=== PATIENT | male | born 1940 | race Two or more races ===

== ENCOUNTER 2016-05-22 05:22 | Emergency (ER) | payer MEDICARE, OTHER ==
--- NOTE | 2016-05-22 05:49 | ER Document Report ---
ED Fall - General Chief Complaint: Fall Stated Complaint: FALL, NECK PAIN Time seen by provider: 05:48 Mode of Arrival: Medic Information source: Patient TRAVEL OUTSIDE OF THE [place] IN LAST 30 DAYS: No - Related data Allergies/Adverse Reactions: No Known Allergies Allergy (Verified 03/14/15 14:23) Past Medical History - Social History Family History: CAD, Hyperlipidemia, Hypertension - Past Medical History Cardiac Medical History: Reports: Hx Hypercholesterolemia, Hx Hypertension Denies: Hx Atrial Fibrillation, Hx Congestive Heart Failure, Hx Coronary Artery Disease, Hx Heart Attack, Hx Peripheral Vascular Disease, Hx Heart Murmur Pulmonary Medical History: Denies: Hx Asthma Neurological Medical History: Reports: Hx Seizures. Denies: Hx Cerebrovascular Accident Malignancy Medical History: Reports Hx Prostate Cancer GI Medical History: Reports: Hx Gastroesophageal Reflux Disease. Denies: Hx Hepatitis, Hx Hiatal Hernia, Hx Ulcer Musculoskeltal Medical History: Reports Hx Arthritis Psychiatric Medical History: Reports: Hx Depression - 2/2 recent of his 1 year ago Infectious Medical History: Denies: Hx Hepatitis Past Surgical History: Reports: Hx Orthopedic Surgery - Knee Replacement, Other - Prostatectomy. Denies: Hx Open Heart Surgery, Hx Pacemaker - Immunizations Immunizations up to date: Yes Hx Diphtheria, Pertussis, Tetanus Vaccination: Yes Hx Pneumococcal Vaccination: 12/18/13 Physical Exam - Vital signs Vitals: Pulse Resp BP Pulse Ox 94 20 171/87 H 96 05/22/16 05:29 05/22/16 05:29 05/22/16 05:29 05/22/16 05:29 Course - Vital Signs Vital signs: Temp Pulse Resp BP Pulse Ox 97.6 F 94 20 171/87 H 96 05/22/16 05:30 05/22/16 05:29 05/22/16 05:29 05/22/16 05:29 05/22/16 05:29
[2016-05-22] MEDS ORDERED: MORPHINE SULFATE 10 MG/ML INJ IV ONE ×2 (06:28→08:12)
--- NOTE | 2016-05-22 06:36 | ER Document Report ---
ED Fall - General Chief Complaint: Fall Stated Complaint: FALL, NECK PAIN Mode of Arrival: Medic Information source: Patient Notes: This is a 75-year-old male who presents via EMS after a fall this morning. He states that he had a headache and awoke at about 3 AM and has used getting out of bed he slipped and fell and hit his head on the floor. He denies any loss of consciousness. He was able to call EMS. He denies any recent fevers chills or systemic symptoms. He has had no nausea or vomiting. He denies vision complaints. He has had no paresthesias or weakness. He also denies chest pain or palpitations. Currently he complains of a diffuse headache. TRAVEL OUTSIDE OF THE [place] IN LAST 30 DAYS: No - Related data Allergies/Adverse Reactions: No Known Allergies Allergy (Verified 05/22/16 05:54) Past Medical History - General Information source: Patient - Social History Smoking Status: Unknown if Ever Smoked Family History: CAD, Hyperlipidemia, Hypertension - Past Medical History Cardiac Medical History: Reports: Hx Hypercholesterolemia, Hx Hypertension Denies: Hx Atrial Fibrillation, Hx Congestive Heart Failure, Hx Coronary Artery Disease, Hx Heart Attack, Hx Peripheral Vascular Disease, Hx Heart Murmur Pulmonary Medical History: Denies: Hx Asthma Neurological Medical History: Reports: Hx Seizures. Denies: Hx Cerebrovascular Accident Malignancy Medical History: Reports Hx Prostate Cancer GI Medical History: Reports: Hx Gastroesophageal Reflux Disease. Denies: Hx Hepatitis, Hx Hiatal Hernia, Hx Ulcer Musculoskeltal Medical History: Reports Hx Arthritis Psychiatric Medical History: Reports: Hx Depression - 2/2 recent of his 1 year ago Infectious Medical History: Denies: Hx Hepatitis Past Surgical History: Reports: Hx Orthopedic Surgery - Knee Replacement, Other - Prostatectomy. Denies: Hx Open Heart Surgery, Hx Pacemaker - Immunizations Immunizations up to date: Yes Hx Diphtheria, Pertussis, Tetanus Vaccination: Yes Hx Pneumococcal Vaccination: 12/18/13 Review of Systems - Review of Systems Constitutional: No symptoms reported. denies: Chills, Fever EENT: No symptoms reported Cardiovascular: No symptoms reported. denies: Chest pain, Syncope, Dizziness Respiratory: No symptoms reported Gastrointestinal: No symptoms reported. denies: Vomiting Musculoskeletal: See HPI. denies: Back pain, Muscle pain Neurological/Psychological: See HPI. denies: Weakness, Gait changes, Numbness, Tingling Physical Exam - Vital signs Vitals: Pulse Resp BP Pulse Ox 94 20 171/87 H 96 05/22/16 05:29 05/22/16 05:29 05/22/16 05:29 05/22/16 05:29 - Notes Notes: PHYSICAL EXAMINATION: GENERAL: Thin frail elderly male in no acute distress. Pleasant and conversant. C-collar is in place HEAD: Atraumatic, normocephalic. EYES: Pupils equal round and reactive to light, extraocular movements intact, sclera anicteric, conjunctiva are normal. ENT: nares patent, oropharynx clear without exudates. Moist mucous membranes. NECK: No midline C-spine tenderness to palpation. No step-offs. Tenderness to palpation to left paracervical muscles. LUNGS: Breath sounds clear to auscultation bilaterally and equal. No wheezes rales or rhonchi. HEART: Regular rate and rhythm without murmurs ABDOMEN: Soft, nontender, normoactive bowel sounds. No guarding, no rebound. No masses appreciated. EXTREMITIES: Normal range of motion, no edema NEUROLOGICAL: Cranial nerves grossly intact. Normal speech, normal gait. Motor strength +5/5 bilateral upper and lower extremities. Sensation intact. Negative finger to nose. PSYCH: Normal mood, normal affect. SKIN: Warm, Dry, normal turgor, no rashes or lesions noted. Course - Re-evaluation Re-evalutation: 05/22/16 12:06 Patient has remained stable throughout his ER stay. Currently he states that his head feels better but his left side of the neck still hurts when he turns his head to the left. I suspect that he has a cervical strain. CTs are reviewed and negative. His history and exam is not consistent with subarachnoid hemorrhage and I do not feel that LP is clinically indicated at this time. Patient is stable for discharge home with symptomatic care and follow-up with his primary care physician this week. We discussed strict return precautions to include increasing headache, fever, vomiting, chest pain, or any worsening symptoms or concerns. He is very comfortable with this plan and questions are answered. 05/22/16 15:30 - Vital Signs Vital signs: Temp Pulse Resp BP Pulse Ox 97.6 F 92 18 159/89 H 91 L 05/22/16 05:30 05/22/16 07:50 05/22/16 11:30 05/22/16 11:30 05/22/16 11:30 - Laboratory Result Diagrams: 05/22/16 06:50 05/22/16 06:50 Laboratory results interpreted by me: 05/22/16 05/22/16 06:50 06:50 RBC 4.06 L Hgb 12.2 L Hct 35.8 L RDW 20.0 H Lymphocytes % 12.5 L Basophils % 2.7 H Sodium 147.1 H Creatinine 1.42 H Est GFR ( Amer) 59 L Est GFR (Non-Af Amer) 49 L Glucose 117 H Calcium 10.3 H Total Protein 8.7 H - Diagnostic Test Radiology reviewed: Reports reviewed - CT head and C-spine negative. Discharge - Discharge Clinical Impression: Fall Qualifiers: Encounter type: initial encounter Qualified Code(s): W19.XXXA - Unspecified fall, initial encounter Headache Qualifiers: Headache type: unspecified Headache chronicity pattern: acute headache Intractability: not intractable Qualified Code(s): R51 - Headache Cervical strain, acute Qualifiers: Encounter type: initial encounter Qualified Code(s): S16.1XXA - Strain of muscle, fascia and tendon at neck level, initial encounter Condition: Stable Disposition: HOME, SELF-CARE Additional Instructions: Your exam, CTs, and blood work today showed no signs of serious medical problem or injury. You should rest at home and drink plenty of fluids. You can take Tylenol or ibuprofen as needed for pain. As discussed use a heating pad or moist heat on your neck as needed for muscle stiffness or soreness. You should follow up with your primary physician this week for further evaluation. Please return to the emergency department for any worsening symptoms especially for fever, severe headache, vomiting, chest pain, or any worsening symptoms or concerns. Referrals: CARMEN LOPEZ MD [Primary Care Provider] - Follow up as needed
[2016-05-22] MEDS ORDERED: ONDANSETRON HCL INJ/PF 4 MG/2 ML SDV IV ONE (07:05)
[2016-05-22 07:08] LABS: ABSOLUTE BASOPHILS # (AUTO) 0.2 10^3/uL (0.0-0.2); ABSOLUTE EOSINOPHILS # (AUTO) 0.2 10^3/uL (0.0-0.6); ABSOLUTE LYMPHOCYTES (AUTO) 1.1 10^3/uL (0.5-4.7); ABSOLUTE MONOCYTES (AUTO) 0.8 10^3/uL (0.1-1.4); ABSOLUTE NEUT (AUTO) 6.3 10^3/uL (1.7-8.2); BASOPHILS % (AUTO) 2.7 % (0-2); EOSINOPHILS % (AUTO) 1.8 % (0-6); HEMATOCRIT 35.8 % (37.9-51.0); HEMOGLOBIN 12.2 g/dL (13.5-17.0); HGB HCT DIFFERENCE 0.8; LYMPHOCYTES % (AUTO) 12.5 % (13-45); MEAN CORPUSCULAR HEMOGLOBIN 30.1 pg (27.0-33.4); MEAN CORPUSCULAR HGB CONC 34.2 g/dL (32.0-36.0); MEAN CORPUSCULAR VOLUME 88 fl (80-97); MONOCYTES % (AUTO) 9.2 % (3-13); RED BLOOD COUNT 4.06 10^6/uL (4.35-5.55); SEGMENTED NEUTROPHILS % (AUTO) 73.8 % (42-78); WHITE BLOOD COUNT 8.6 10^3/uL (4.0-10.5)
[2016-05-22] MEDS ORDERED: ONDANSETRON HCL INJ/PF 4 MG/2 ML SDV ONE (07:08)
[2016-05-22 07:12] LABS: PROTHROMBIN TIME 12.7 SEC (11.4-15.4)
[2016-05-22 07:13] LABS: PARTIAL THROMBOPLASTIN TIME 34.3 SEC (23.5-35.8)
[2016-05-22 07:28] LABS: ANISOCYTOSIS 2+; HYPOCHROMASIA SLIGHT; OVALOCYTES SLIGHT; POIKILOCYTOSIS 1+; TARGET CELLS SLIGHT
[2016-05-22 07:32] LABS: ALANINE AMINOTRANSFERASE 25 U/L (21-72); ALBUMIN 4.6 g/dL (3.5-5.0); ALKALINE PHOSPHATASE 73 U/L (38-126); ANION GAP 16 (5-19); ASPARTATE AMINO TRANSFERASE 26 U/L (17-59); BLOOD UREA NITROGEN 15 mg/dL (7-20); CALCIUM 10.3 mg/dL (8.4-10.2); CARBON DIOXIDE 26 mmol/L (22-30); CHLORIDE 105 mmol/L (98-107); CREATINE KINASE 132 U/L (55-170); CREATININE RESULT 1.42 mg/dL (0.52-1.25); GLUCOSE 117 mg/dL (75-110); POTASSIUM 3.6 mmol/L (3.6-5.0); SODIUM 147.1 mmol/L (137-145); TOTAL PROTEIN 8.7 g/dL (6.3-8.2)
[2016-05-22 07:44] LABS: CREATINE KINASE MB 0.32 ng/mL (<4.55)
[2016-05-22 07:45] LABS: TROPONIN I < 0.012 ng/mL
[2016-05-22 11:33] VITALS: BP 159/89
--- NOTE | 2016-05-22 12:11 | EKG REPORT ---
SEVERITY:- NORMAL ECG - SINUS RHYTHM : Confirmed by: Otilia Armenta MD 22-May-2016 12:10:46
== END 2016-05-22 12:24 | disposition home or self-care (01) ==
LOC: ER 05:22
DX: S16.1XXA Strain of muscle, fascia and tendon at neck level, initial encounter (principal); W01.0XXA Fall on same level from slipping, tripping and stumbling without subsequent striking against object, initial encounter; Y93.89 Activity, other specified; M54.2 Cervicalgia; R51 Headache; I10 Essential (primary) hypertension; Z85.46 Personal history of malignant neoplasm of prostate
CPT/HCPCS: 93005; 96376; 99284; 96374; 96375; 36415; 82553; 82550; 85025; 85610; 85730; 80053; 84484; 70450; 70496; 70498; 72125; 93010; L0120; L0172; J2270; J2405

== ENCOUNTER 2016-06-05 18:56 | Inpatient (IN) | payer MEDICARE, OTHER ==
[2016-06-05] MEDS ORDERED: CEFTRIAXONE 1 GM/D5W RTU 50 ML IV ONE (19:27)
[2016-06-05] MEDS ORDERED: NORMAL SALINE 1000 ML 1,000 ML IV ONE (19:27)
[2016-06-05] MEDS ORDERED: LEVOFLOXACIN 750 MG/D5W RTU 150 ML IV ONE (19:27)
[2016-06-05] MEDS ORDERED: ACETAMINOPHEN 325 MG TABLET PO ONE (19:28)
--- NOTE | 2016-06-05 19:30 | ER Document Report ---
ED General - General Chief Complaint: Fever Stated Complaint: cough, sob, fever Notes: Patient is a 75-year-old male with past medical history of hypertension and hyperlipidemia who presents with a fever, cough, and shortness of breath. Patient states that he had been feeling unwell for the past 48 hours. He also notes that when he coughs he has a diffuse dull, stabbing pain in his chest. Became much worse today. Nothing seems to improve or worsen his symptoms. States that these symptoms feel similar to when he has had pneumonia in the past. He has not seen his primary care doctor regarding today's concerns. He had a fever recorded at 101F by EMS. Patient is not normally on oxygen and has no history of obstructive lung disease. TRAVEL OUTSIDE OF THE [place] IN LAST 30 DAYS: No - Related Data Allergies/Adverse Reactions: No Known Allergies Allergy (Verified 05/22/16 05:54) Past Medical History - General Information source: Patient - Social History Smoking Status: Never Smoker Frequency of alcohol use: None Drug Abuse: None Family History: CAD, Hyperlipidemia, Hypertension - Past Medical History Cardiac Medical History: Reports: Hx Hypercholesterolemia, Hx Hypertension Denies: Hx Atrial Fibrillation, Hx Congestive Heart Failure, Hx Coronary Artery Disease, Hx Heart Attack, Hx Peripheral Vascular Disease, Hx Heart Murmur Pulmonary Medical History: Denies: Hx Asthma Neurological Medical History: Reports: Hx Seizures. Denies: Hx Cerebrovascular Accident Malignancy Medical History: Reports Hx Prostate Cancer GI Medical History: Reports: Hx Gastroesophageal Reflux Disease. Denies: Hx Hepatitis, Hx Hiatal Hernia, Hx Ulcer Musculoskeltal Medical History: Reports Hx Arthritis Psychiatric Medical History: Reports: Hx Depression - 2/2 recent of his 1 year ago Infectious Medical History: Denies: Hx Hepatitis Past Surgical History: Reports: Hx Orthopedic Surgery - Knee Replacement, Other - Prostatectomy. Denies: Hx Open Heart Surgery, Hx Pacemaker - Immunizations Immunizations up to date: Yes Hx Diphtheria, Pertussis, Tetanus Vaccination: Yes Hx Pneumococcal Vaccination: 12/18/13 Review of Systems - Review of Systems Notes: Constitutional: Positive for fever. HENT: Negative for sore throat. Eyes: Negative for visual changes. Cardiovascular: Negative for chest pain. Respiratory: Positive for shortness of breath. Gastrointestinal: Negative for abdominal pain, vomiting or diarrhea. Genitourinary: Negative for dysuria. Musculoskeletal: Negative for back pain. Skin: Negative for rash. Neurological: Negative for headaches, weakness or numbness. 10 point ROS negative except as marked above and in HPI. Physical Exam - Vital signs Vitals: Resp 22 H 06/05/16 19:08 Interpretation: Tachycardic, Hypoxic, Tachypneic Notes: PHYSICAL EXAMINATION: GENERAL: Ill and uncomfortable in appearance. HEAD: Atraumatic, normocephalic. EYES: Pupils equal round and reactive to light, extraocular movements intact, sclera anicteric, conjunctiva are normal. ENT: nares patent, oropharynx clear without exudates. Dry mucous membranes. NECK: Normal range of motion, supple without lymphadenopathy LUNGS: Moderate respiratory distress, intercostal retractions with tachypnea. No wheezing or rales HEART: Regular tachycardia without murmurs ABDOMEN: Soft, nontender, normoactive bowel sounds. No guarding, no rebound. No masses appreciated. EXTREMITIES: Normal range of motion, no pitting or edema. No cyanosis. NEUROLOGICAL: No focal neurological deficits. Moves all extremities spontaneously and on command. PSYCH: Normal mood, normal affect. SKIN: Warm, Dry, normal turgor, no rashes or lesions noted. Course - Re-evaluation Re-evalutation: 06/05/16 19:28 Patient presented in moderate respiratory distress with initial respiratory rate of 28. He is retracting and intercostal region. He does have mild hypoxemia at 90% on room air to 95% on 2 L by nasal cannula she does not normally require. Patient is overall ill in appearance. Noted to be febrile at time of arrival. Concerning given clinical history is for a pneumonia given his cough, hypoxemia, respiratory distress and fever. Inseparable chest x-ray, labs, lactate, cultures will be obtained. He has been started on IV fluids, ceftriaxone and levofloxacin given a presumptive diagnosis of pneumonia based on his clinical history. He is critically ill at this time will require frequent reassessments. 06/05/16 21:23 Patient's work of breathing is overall much improved at this time respiratory rate is 21 without any further retractions. Suspect large component of his tachypnea was secondary to his initial fever. Tachycardia is also improved after a liter of fluid and Tylenol. Antibiotics are infusing. Awaiting results of chest x-ray minimal plan for admission. Patient's lactate is noted to be 2. Have a leukocytosis on labs as well as mild acute kidney injury. 06/05/16 22:08 CXR shows findings consistent with likely pneumonia. Patient has been admitted to Dr. Gross. - Vital Signs Vital signs: Temp Pulse Resp BP Pulse Ox 98.7 F 124 H 21 H 133/82 H 97 06/05/16 21:46 06/05/16 19:22 06/06/16 02:31 06/06/16 02:31 06/06/16 02:31 - Laboratory Result Diagrams: 06/05/16 19:10 06/05/16 19:10 Laboratory results interpreted by me: 06/05/16 06/05/16 06/05/16 19:10 19:10 20:05 WBC 12.0 H RBC 3.71 L Hgb 10.7 L Hct 32.9 L RDW 20.1 H Seg Neutrophils % 84.7 H Lymphocytes % 6.8 L Absolute Neutrophils 10.2 H VBG pH 7.46 H VBG pCO2 30.1 L Potassium 3.3 L Creatinine 1.59 H Est GFR ( Amer) 52 L Est GFR (Non-Af Amer) 43 L Glucose 123 H - Diagnostic Test Radiology reviewed: Image reviewed, Reports reviewed Radiology results interpreted by me: 06/06/16 02:59 Chest x-ray: Bilateral lower infiltrates worsen the right. - EKG Interpretation by Me Additional EKG results interpreted by me: 06/06/16 03:00 Sinus tachycardia. Rate 122. No ST elevations or depressions. QTC is 422. Critical Care Note - Critical Care Note Total time excluding time spent on procedures (mins): 35 Comments: Critical care time spent obtaining history from patient or surrogate, discussions with consultants, development of treatment plan with patient or surrogate, evaluation of patient's response to treatment, examination of patient , ordering and performing treatments and interventions, ordering and review of laboratory studies, re-evaluation of patient's condition, ordering and review of radiographic studies and review of old charts Discharge - Discharge Clinical Impression: Sepsis, Pneumonia, Hypoxia Disposition: ADMITTED INPATIENT Admitting Provider: Renato Unit Admitted: Telemetry
[2016-06-05 19:39] LABS: ABSOLUTE BASOPHILS # (AUTO) 0.1 10^3/uL (0.0-0.2); ABSOLUTE EOSINOPHILS # (AUTO) 0.3 10^3/uL (0.0-0.6); ABSOLUTE LYMPHOCYTES (AUTO) 0.8 10^3/uL (0.5-4.7); ABSOLUTE MONOCYTES (AUTO) 0.6 10^3/uL (0.1-1.4); ABSOLUTE NEUT (AUTO) 10.2 10^3/uL (1.7-8.2); BASOPHILS % (AUTO) 0.9 % (0-2); EOSINOPHILS % (AUTO) 2.4 % (0-6); HEMATOCRIT 32.9 % (37.9-51.0); HEMOGLOBIN 10.7 g/dL (13.5-17.0); HGB HCT DIFFERENCE -0.8; LYMPHOCYTES % (AUTO) 6.8 % (13-45); MEAN CORPUSCULAR HEMOGLOBIN 28.9 pg (27.0-33.4); MEAN CORPUSCULAR HGB CONC 32.6 g/dL (32.0-36.0); MEAN CORPUSCULAR VOLUME 89 fl (80-97); MONOCYTES % (AUTO) 5.2 % (3-13); RED BLOOD COUNT 3.71 10^6/uL (4.35-5.55); RED CELL DISTRIBUTION WIDTH 20.1 % (11.5-14.0); SEGMENTED NEUTROPHILS % (AUTO) 84.7 % (42-78)
[2016-06-05 19:52] LABS: ANION GAP 15 (5-19); BLOOD UREA NITROGEN 11 mg/dL (7-20); CALCIUM 8.8 mg/dL (8.4-10.2); CARBON DIOXIDE 22 mmol/L (22-30); CHLORIDE 104 mmol/L (98-107); CREATININE RESULT 1.59 mg/dL (0.52-1.25); GLUCOSE 123 mg/dL (75-110); POTASSIUM 3.3 mmol/L (3.6-5.0); SODIUM 141.2 mmol/L (137-145)
[2016-06-05 20:06] LABS: ANISOCYTOSIS 2+; HYPOCHROMASIA SLIGHT; OVALOCYTES SLIGHT; POIKILOCYTOSIS 1+; SCHISTOCYTES SLIGHT; TARGET CELLS SLIGHT
[2016-06-05 20:14] LABS: VENOUS BLOOD BASE EXCESS -2.1 mmol/L; VENOUS BLOOD HCO3 20.9 mmol/L (20-32); VENOUS BLOOD PCO2 30.1 mmHg (35-63); VENOUS BLOOD PH 7.46 (7.30-7.42)
--- NOTE | 2016-06-05 21:12 | EKG REPORT ---
SEVERITY:- ABNORMAL ECG - SINUS TACHYCARDIA REPOL ABNRM SUGGESTS ISCHEMIA, DIFFUSE LEADS : Confirmed by: Otilia Armenta MD 05-Jun-2016 21:11:42
[2016-06-06] MEDS: ENOXAPARIN SODIUM INJ 30 MG/0.3 ML DISP.SYRIN SUBCUT SCH (08:09)
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
[2016-06-06] MEDS: POTASSIUM CHLORIDE 10 MEQ TABLET.SA PO SCH (10:29)
[2016-06-06] MEDS: FAMOTIDINE 20 MG TABLET PO SCH ×2 (10:29→21:41)
[2016-06-06] MEDS: LEVOFLOXACIN 750 MG/D5W RTU 750 MG/150 ML RTUPB IV SCH (21:40)
[2016-06-06] MEDS: CEFTRIAXONE 1 GM/D5W RTU 1 GM/50 ML RTUPB IV SCH (21:41)
[2016-06-07 05:50] LABS: ANION GAP 13 (5-19); BLOOD UREA NITROGEN 13 mg/dL (7-20); CALCIUM 8.8 mg/dL (8.4-10.2); CARBON DIOXIDE 21 mmol/L (22-30); CHLORIDE 108 mmol/L (98-107); CREATININE RESULT 1.36 mg/dL (0.52-1.25); GLUCOSE 95 mg/dL (75-110); POTASSIUM 3.8 mmol/L (3.6-5.0); SODIUM 142.4 mmol/L (137-145)
--- NOTE | 2016-06-07 07:17 | PDOC PROGRESS REPORT ---
Subjective Progress Note for:: 06/07/16 Subjective:: less cough. Transient precordial pain. Physical Exam Vital Signs: Temp Pulse Resp BP Pulse Ox 98.3 F 78 20 144/76 H 97 06/06/16 23:44 06/07/16 02:00 06/06/16 23:44 06/06/16 23:44 06/06/16 23:44 Intake & Output 06/05/16 06/06/16 06/07/16 07:59 07:59 07:59 Intake Total 5 1738 Output Total 450 Balance 5 1288 Weight 152 lb 5.431 oz General appearance: PRESENT: no acute distress Respiratory exam: PRESENT: clear to auscultation bentley Cardiovascular exam: PRESENT: RRR, systolic murmur. ABSENT: diastolic murmur Murmur grade: 2 GI/Abdominal exam: PRESENT: soft Extremities exam: ABSENT: pedal edema Results Laboratory Results: 06/07/16 04:47 06/07/16 04:47 Sodium 142.4 Potassium 3.8 Chloride 108 H Carbon Dioxide 21 L Anion Gap 13 BUN 13 Creatinine 1.36 H Est GFR ( Amer) > 60 Est GFR (Non-Af Amer) 51 L Glucose 95 Calcium 8.8 Impressions: Chest X-Ray 06/05/16 19:02 IMPRESSION: Increased interstitial and alveolar markings in both lungs with basilar predominance, differential includes pulmonary edema versus infection. . Assessment & Plan - Diagnosis (1) Bronchopneumonia Is this a current diagnosis for this admission?: YesPlan: continue antibiotics (2) Precordial pain Is this a current diagnosis for this admission?: YesPlan: 18m fariha no ischemia
[2016-06-07] MEDS: ENOXAPARIN SODIUM INJ 30 MG/0.3 ML DISP.SYRIN SUBCUT SCH (09:13)
[2016-06-07] MEDS: POTASSIUM CHLORIDE 10 MEQ TABLET.SA PO SCH (09:13)
[2016-06-07] MEDS: CYANOCOBALAMIN (VITAMIN B-12) 1,000 MCG TABLET PO SCH (09:13)
[2016-06-07] MEDS: FAMOTIDINE 20 MG TABLET PO SCH ×2 (09:13→21:19)
--- NOTE | 2016-06-07 13:13 | EKG REPORT ---
SEVERITY:- NORMAL ECG - SINUS RHYTHM : Confirmed by: Otilia Armenta MD 07-Jun-2016 13:12:19
[2016-06-07] MEDS: ACETAMINOPHEN 325 MG TABLET PO PRN (17:36)
[2016-06-07] MEDS ORDERED: AMLODIPINE BESYLATE 10 MG TABLET PO ONE (21:00)
[2016-06-07] MEDS: LEVOFLOXACIN 750 MG/D5W RTU 750 MG/150 ML RTUPB IV SCH (21:19)
[2016-06-07] MEDS: CEFTRIAXONE 1 GM/D5W RTU 1 GM/50 ML RTUPB IV SCH (21:20)
[2016-06-08 07:07] LABS: ANION GAP 12 (5-19); BLOOD UREA NITROGEN 17 mg/dL (7-20); CALCIUM 9.7 mg/dL (8.4-10.2); CARBON DIOXIDE 23 mmol/L (22-30); CHLORIDE 108 mmol/L (98-107); CREATININE RESULT 1.51 mg/dL (0.52-1.25); GLUCOSE 88 mg/dL (75-110); POTASSIUM 4.3 mmol/L (3.6-5.0); SODIUM 143.1 mmol/L (137-145)
--- NOTE | 2016-06-08 07:21 | PDOC PROGRESS REPORT ---
Subjective Progress Note for:: 06/08/16 Subjective:: OK now. Confused last night as usual during admissions. Wants home Physical Exam Vital Signs: Temp Pulse Resp BP Pulse Ox 97.9 F 84 20 150/97 H 92 06/08/16 03:42 06/08/16 03:42 06/08/16 03:42 06/08/16 03:42 06/08/16 03:42 Intake & Output 06/06/16 06/07/16 06/08/16 07:59 07:59 07:59 Intake Total 5 1738 1563 Output Total 450 0 Balance 5 1288 1563 Weight 152 lb 5.431 oz 148 lb 9.465 oz General appearance: PRESENT: no acute distress Respiratory exam: PRESENT: clear to auscultation bentley Cardiovascular exam: PRESENT: systolic murmur. ABSENT: diastolic murmur, irregular rhythm Murmur grade: 2 GI/Abdominal exam: ABSENT: mass, organolmegaly, tenderness Extremities exam: ABSENT: pedal edema Results Laboratory Results: 06/08/16 05:21 06/08/16 05:21 Sodium 143.1 Potassium 4.3 Chloride 108 H Carbon Dioxide 23 Anion Gap 12 BUN 17 Creatinine 1.51 H Est GFR ( Amer) 55 L Est GFR (Non-Af Amer) 45 L Glucose 88 Calcium 9.7 Impressions: Chest X-Ray 06/05/16 19:02 IMPRESSION: Increased interstitial and alveolar markings in both lungs with basilar predominance, differential includes pulmonary edema versus infection. . Assessment & Plan - Diagnosis (1) Bronchopneumonia Is this a current diagnosis for this admission?: YesPlan: po levaquin. ?home in 2d (2) Precordial pain Is this a current diagnosis for this admission?: Yes
[2016-06-08] MEDS: ENOXAPARIN SODIUM INJ 30 MG/0.3 ML DISP.SYRIN SUBCUT SCH (09:00)
[2016-06-08] MEDS: POTASSIUM CHLORIDE 10 MEQ TABLET.SA PO SCH (09:04)
[2016-06-08] MEDS: AMLODIPINE BESYLATE 10 MG TABLET PO SCH (09:05)
[2016-06-08] MEDS: FAMOTIDINE 20 MG TABLET PO SCH ×2 (09:05→21:32)
[2016-06-08] MEDS: LEVOFLOXACIN 750 MG TABLET PO SCH (09:05)
[2016-06-08] MEDS: CYANOCOBALAMIN (VITAMIN B-12) 1,000 MCG TABLET PO SCH (09:05)
[2016-06-08] MEDS: CEFTRIAXONE 1 GM/D5W RTU 1 GM/50 ML RTUPB IV SCH (21:32)
[2016-06-08] MEDS: ACETAMINOPHEN 325 MG TABLET PO PRN (21:32)
--- NOTE | 2016-06-09 06:32 | PDOC PROGRESS REPORT ---
Subjective Progress Note for:: 06/09/16 Subjective:: better. Wants home tomorrow Physical Exam Vital Signs: Temp Pulse Resp BP Pulse Ox 97.9 F 74 20 141/76 H 94 06/09/16 04:07 06/09/16 04:07 06/08/16 19:14 06/09/16 04:07 06/09/16 04:07 Intake & Output 06/07/16 06/08/16 06/09/16 07:59 07:59 07:59 Intake Total 1738 1563 1165 Output Total 450 0 Balance 1288 1563 1165 Weight 148 lb 9.465 oz 152 lb 1.903 oz General appearance: PRESENT: no acute distress Respiratory exam: PRESENT: clear to auscultation bentley Cardiovascular exam: PRESENT: systolic murmur. ABSENT: diastolic murmur, irregular rhythm Murmur grade: 2 GI/Abdominal exam: ABSENT: mass, organolmegaly, tenderness Extremities exam: ABSENT: pedal edema Results Laboratory Results: 06/08/16 05:21 06/08/16 05:21 Sodium 143.1 Potassium 4.3 Chloride 108 H Carbon Dioxide 23 Anion Gap 12 BUN 17 Creatinine 1.51 H Est GFR ( Amer) 55 L Est GFR (Non-Af Amer) 45 L Glucose 88 Calcium 9.7 Impressions: Chest X-Ray 06/05/16 19:02 IMPRESSION: Increased interstitial and alveolar markings in both lungs with basilar predominance, differential includes pulmonary edema versus infection. . Assessment & Plan - Diagnosis (1) Bronchopneumonia Is this a current diagnosis for this admission?: YesPlan: d4 antibiotics. 1 more day of levaquin (2) Precordial pain Is this a current diagnosis for this admission?: Yes
[2016-06-09 07:01] LABS: ANION GAP 10 (5-19); BLOOD UREA NITROGEN 21 mg/dL (7-20); CALCIUM 9.7 mg/dL (8.4-10.2); CARBON DIOXIDE 26 mmol/L (22-30); CHLORIDE 105 mmol/L (98-107); CREATININE RESULT 1.82 mg/dL (0.52-1.25); GLUCOSE 91 mg/dL (75-110); POTASSIUM 4.6 mmol/L (3.6-5.0); SODIUM 141.3 mmol/L (137-145)
[2016-06-09] MEDS: FAMOTIDINE 20 MG TABLET PO SCH ×2 (09:33→21:46)
[2016-06-09] MEDS: AMLODIPINE BESYLATE 10 MG TABLET PO SCH (09:33)
[2016-06-09] MEDS: LEVOFLOXACIN 750 MG TABLET PO SCH (09:33)
[2016-06-09] MEDS: POTASSIUM CHLORIDE 10 MEQ TABLET.SA PO SCH (09:33)
[2016-06-09] MEDS: CYANOCOBALAMIN (VITAMIN B-12) 1,000 MCG TABLET PO SCH (09:33)
[2016-06-09] MEDS: ENOXAPARIN SODIUM INJ 30 MG/0.3 ML DISP.SYRIN SUBCUT SCH (09:36)
[2016-06-09] MEDS: LUBIPROSTONE 24 MCG CAPSULE PO SCH ×2 (09:36→17:56)
[2016-06-09] MEDS: CEFTRIAXONE 1 GM/D5W RTU 1 GM/50 ML RTUPB IV SCH (21:46)
[2016-06-10] MEDS ORDERED: NA PHOS,M-B/NA PHOS,DI-BA (ADULT) 133 ML ENEMA PR ONE (05:00)
--- NOTE | 2016-06-10 08:13 | PDOC DISCHARGE SUMMARY ---
General - Admit/Disc Date/PCP Admission Date/Primary Care Provider: 06/06/16 05:22 CLAUDIA ALVES MD Discharge Date: 06/10/16 - Discharge Diagnosis (1) Bronchopneumonia Is this a current diagnosis for this admission?: YesSummary: finished 5d levaquin & ceftriaxone. Less cough. Wants home. (2) Precordial pain Is this a current diagnosis for this admission?: YesSummary: transient. No ekg change - Additional Information Resuscitation Status: Full Code Discharge Diet: Cardiac Discharge Activity: Activity As Tolerated Home Medications: Amlodipine Besylate 10 mg PO DAILY 06/06/16 Cyanocobalamin (Vitamin B-12) [Vitamin B-12 1000 mcg Tablet] 1 tab PO DAILY 05/20 Gabapentin [Neurontin 100 mg Capsule] 100 mg PO TID 06/06/16 Pantoprazole Sodium 40 mg PO DAILY 06/06/16 History of Present Illness History of Present Illness: NELIDA MARTEL is a 75 year old male with 1d fever, nasal congestion, sore throat, productive cough. Hospital Course Hospital Course: see above Physical Exam Vital Signs: Temp Pulse Resp BP Pulse Ox 97.4 F 91 18 129/80 H 97 06/10/16 03:29 06/10/16 03:29 06/10/16 03:29 06/10/16 03:29 06/10/16 03:29 Intake & Output 06/09/16 06/10/16 06/11/16 07:59 07:59 07:59 Intake Total 1165 1477 Output Total 500 Balance 1165 977 Weight 152 lb 1.903 oz 148 lb 12.992 oz Respiratory exam: PRESENT: clear to auscultation bentley Cardiovascular exam: PRESENT: systolic murmur. ABSENT: diastolic murmur, irregular rhythm Murmur grade: 2 GI/Abdominal exam: ABSENT: mass, organolmegaly, tenderness Extremities exam: ABSENT: pedal edema Results Laboratory Results: 06/09/16 05:54 Labs- Last Values WBC 12.0 10^3/uL (4.0-10.5) H 06/05/16 19:10 RBC 3.71 10^6/uL (4.35-5.55) L 06/05/16 19:10 Hgb 10.7 g/dL (13.5-17.0) L 06/05/16 19:10 Hct 32.9 % (37.9-51.0) L 06/05/16 19:10 MCV 89 fl (80-97) 06/05/16 19:10 MCH 28.9 pg (27.0-33.4) 06/05/16 19:10 MCHC 32.6 g/dL (32.0-36.0) 06/05/16 19:10 RDW 20.1 % (11.5-14.0) H 06/05/16 19:10 Plt Count 377 10^3/uL (150-450) 06/05/16 19:10 Seg Neutrophils % 84.7 % (42-78) H 06/05/16 19:10 Lymphocytes % 6.8 % (13-45) L 06/05/16 19:10 Monocytes % 5.2 % (3-13) 06/05/16 19:10 Eosinophils % 2.4 % (0-6) 06/05/16 19:10 Basophils % 0.9 % (0-2) 06/05/16 19:10 Absolute Neutrophils 10.2 10^3/uL (1.7-8.2) H 06/05/16 19:10 Absolute Lymphocytes 0.8 10^3/uL (0.5-4.7) 06/05/16 19:10 Absolute Monocytes 0.6 10^3/uL (0.1-1.4) 06/05/16 19:10 Absolute Eosinophils 0.3 10^3/uL (0.0-0.6) 06/05/16 19:10 Absolute Basophils 0.1 10^3/uL (0.0-0.2) 06/05/16 19:10 Platelet Comment ADEQUATE 06/05/16 19:10 Hypochromasia SLIGHT 06/05/16 19:10 Poikilocytosis 1+ 06/05/16 19:10 Basophilic Stippling PRESENT 06/05/16 19:10 Anisocytosis 2+ 06/05/16 19:10 Target Cells SLIGHT 06/05/16 19:10 Ovalocytes SLIGHT 06/05/16 19:10 Schistocytes SLIGHT 06/05/16 19:10 VBG pH 7.46 (7.30-7.42) H 06/05/16 20:05 VBG pCO2 30.1 mmHg (35-63) L 06/05/16 20:05 VBG HCO3 20.9 mmol/L (20-32) 06/05/16 20:05 VBG Base Excess -2.1 mmol/L 06/05/16 20:05 Sodium 141.3 mmol/L (137-145) 06/09/16 05:54 Potassium 4.6 mmol/L (3.6-5.0) 06/09/16 05:54 Chloride 105 mmol/L (98-107) 06/09/16 05:54 Carbon Dioxide 26 mmol/L (22-30) 06/09/16 05:54 Anion Gap 10 (5-19) 06/09/16 05:54 BUN 21 mg/dL (7-20) H 06/09/16 05:54 Creatinine 1.82 mg/dL (0.52-1.25) H 06/09/16 05:54 Est GFR ( Amer) 44 (>60) L 06/09/16 05:54 Est GFR (Non-Af Amer) 36 (>60) L 06/09/16 05:54 Glucose 91 mg/dL (75-110) 06/09/16 05:54 Lactic Acid 2.0 mmol/L (0.7-2.1) 06/05/16 20:05 Calcium 9.7 mg/dL (8.4-10.2) 06/09/16 05:54 Influenza A (Rapid) NEGATIVE (NEGATIVE) 06/06/16 03:20 Influenza B (Rapid) NEGATIVE (NEGATIVE) 06/06/16 03:20 Impressions: Chest X-Ray 06/05/16 19:02 IMPRESSION: Increased interstitial and alveolar markings in both lungs with basilar predominance, differential includes pulmonary edema versus infection. . Qualifiers PATEINT BEING DISCHARGED WITH ANY OF THE FOLLOWING DIAGNOSIS?: No Plan Discharge Plan: home. 6d ov Time Spent: Less than 30 Minutes
[2016-06-10] MEDS: AMLODIPINE BESYLATE 10 MG TABLET PO SCH (08:35)
[2016-06-10] MEDS: LEVOFLOXACIN 750 MG TABLET PO SCH (08:35)
[2016-06-10] MEDS: POTASSIUM CHLORIDE 10 MEQ TABLET.SA PO SCH (08:35)
[2016-06-10] MEDS: FAMOTIDINE 20 MG TABLET PO SCH (08:37)
[2016-06-10] MEDS: LUBIPROSTONE 24 MCG CAPSULE PO SCH (08:37)
[2016-06-10] MEDS: ENOXAPARIN SODIUM INJ 30 MG/0.3 ML DISP.SYRIN SUBCUT SCH (08:38)
--- NOTE | 2016-06-10 13:47 | DISCHARGE SUMMARY E ---
Discharge Summary NAME: NELIDA MARTEL : 1940 AGE: 75Y ADMITTED: 06/06/2016 DISCHARGED: 06/10/2016 ADDENDUM: Acute respiratory failure present in the emergency room from pneumonia evidenced by saturation 90%, accessory muscle use, tachypnea 26 per minute, tachycardia 124, muscle retraction requiring monitoring and oxygen in the emergency room. DICTATING PHYSICIAN: CLAUDIA ALVES M.D. [id number] PHY#: [id number] ID: [id number] JOB#: [id number] ACCT: [id number] cc:CLAUDIA ALVES M.D. >
[2016-06-10] MEDS: CYANOCOBALAMIN (VITAMIN B-12) 1,000 MCG TABLET PO SCH (14:21)
[2016-06-10] MEDS: ACETAMINOPHEN 325 MG TABLET PO PRN (14:22)
[2016-06-10 16:35] VITALS: BP 126/83
== END 2016-06-10 17:43 | disposition home or self-care (01) | DRG 193 ==
LOC: ER 18:56 → UNDOADMIN 22:32 → EH 22:32 → 3S 06-06 04:15 → EH 06-06 05:22 → 3S 06-06 05:22
PROVIDERS: ADMIT Family Medicine; ATTEND Family Medicine
DX: J18.0 Bronchopneumonia, unspecified organism (principal); J96.01 Acute respiratory failure with hypoxia; N17.9 Acute kidney failure, unspecified; R07.2 Precordial pain; E78.5 Hyperlipidemia, unspecified; J44.9 Chronic obstructive pulmonary disease, unspecified; I12.9 Hypertensive chronic kidney disease with stage 1 through stage 4 chronic kidney disease, or unspecified chronic kidney disease; N18.9 Chronic kidney disease, unspecified; K21.9 Gastro-esophageal reflux disease without esophagitis; F32.9 Major depressive disorder, single episode, unspecified; Z79.899 Other long term (current) drug therapy; Z96.652 Presence of left artificial knee joint; Z87.891 Personal history of nicotine dependence
CPT/HCPCS: 36415; 71010; 80048; 82803; 83605; 85025; 87040; 87077; 87186; 87804; 93005; 93010; 96365; 96367; 99291; J0696; J1650; J1956; J3490; J7030

== ENCOUNTER 2016-07-11 18:09 | Emergency (ER) | payer MEDICARE, OTHER ==
[2016-07-11 19:16] LABS: ABSOLUTE BASOPHILS # (AUTO) 0.2 10^3/uL (0.0-0.2); ABSOLUTE EOSINOPHILS # (AUTO) 0.4 10^3/uL (0.0-0.6); ABSOLUTE LYMPHOCYTES (AUTO) 1.6 10^3/uL (0.5-4.7); ABSOLUTE MONOCYTES (AUTO) 0.6 10^3/uL (0.1-1.4); ABSOLUTE NEUT (AUTO) 2.8 10^3/uL (1.7-8.2); BASOPHILS % (AUTO) 3.3 % (0-2); EOSINOPHILS % (AUTO) 6.8 % (0-6); HEMATOCRIT 35.9 % (37.9-51.0); HEMOGLOBIN 11.8 g/dL (13.5-17.0); HGB HCT DIFFERENCE -0.5; LYMPHOCYTES % (AUTO) 28.3 % (13-45); MEAN CORPUSCULAR HEMOGLOBIN 29.2 pg (27.0-33.4); MEAN CORPUSCULAR HGB CONC 32.8 g/dL (32.0-36.0); MEAN CORPUSCULAR VOLUME 89 fl (80-97); MONOCYTES % (AUTO) 10.7 % (3-13); RED BLOOD COUNT 4.04 10^6/uL (4.35-5.55); RED CELL DISTRIBUTION WIDTH 20.8 % (11.5-14.0); SEGMENTED NEUTROPHILS % (AUTO) 50.9 % (42-78); WHITE BLOOD COUNT 5.5 10^3/uL (4.0-10.5)
[2016-07-11 19:28] LABS: ANISOCYTOSIS 2+; HYPOCHROMASIA SLIGHT; OVALOCYTES SLIGHT; POIKILOCYTOSIS SLIGHT; TOXIC GRANULATION SLIGHT
[2016-07-11 19:31] LABS: ALANINE AMINOTRANSFERASE 22 U/L (21-72); ALKALINE PHOSPHATASE 58 U/L (38-126); ANION GAP 10 (5-19); ASPARTATE AMINO TRANSFERASE 26 U/L (17-59); BILIRUBIN,DIRECT 0.6 mg/dL (0.0-0.4); BILIRUBIN,TOTAL 0.7 mg/dL (0.2-1.3); BLOOD UREA NITROGEN 19 mg/dL (7-20); CALCIUM 9.9 mg/dL (8.4-10.2); CARBON DIOXIDE 25 mmol/L (22-30); CHLORIDE 105 mmol/L (98-107); CREATINE KINASE 119 U/L (55-170); CREATININE RESULT 1.84 mg/dL (0.52-1.25); GLUCOSE 148 mg/dL (75-110); POTASSIUM 3.8 mmol/L (3.6-5.0); SODIUM 139.6 mmol/L (137-145); TOTAL PROTEIN 7.8 g/dL (6.3-8.2)
[2016-07-11 19:39] LABS: CREATINE KINASE MB 0.53 ng/mL (<4.55)
[2016-07-11 19:44] LABS: TROPONIN I < 0.012 ng/mL
--- NOTE | 2016-07-11 20:55 | ER Document Report ---
ED General - General Chief Complaint: Chest Pain Stated Complaint: CHEST PAIN Time Seen by Provider: 07/11/16 18:31 Mode of Arrival: Ambulatory Information source: Patient Notes: This is a 75-year-old man that presents to the emergency room after an episode of chest pain. He states he fell several weeks ago and his been having some chronic left shoulder pain and left neck pain. He was in his car tonight and he fell, weak and he thought he was having chest pain and he called EMS at that time. His pain seemed to resolve by itself currently is pain-free. TRAVEL OUTSIDE OF THE [place] IN LAST 30 DAYS: No - HPI Onset: Just prior to arrival Onset/Duration: Sudden Quality of pain: Sharp Severity: Moderate Pain Level: 2 Associated symptoms: denies: Chills, Fever, Shortness of breath Exacerbated by: Movement Relieved by: Remaining still Similar symptoms previously: Yes Recently seen / treated by doctor: Yes - Related Data Allergies/Adverse Reactions: No Known Allergies Allergy (Verified 05/22/16 05:54) Past Medical History - General Information source: Patient - Social History Smoking Status: Unknown if Ever Smoked Cigarette use (# per day): No Chew tobacco use (# tins/day): No Frequency of alcohol use: None Drug Abuse: None Lives with: Family Family History: CAD, Hyperlipidemia, Hypertension Patient has suicidal ideation: No Patient has homicidal ideation: No - Past Medical History Cardiac Medical History: Reports: Hx Hypercholesterolemia, Hx Hypertension, Hx Heart Murmur - 2012 aortic stenosis with [id number] Denies: Hx Atrial Fibrillation, Hx Congestive Heart Failure, Hx Coronary Artery Disease, Hx Heart Attack, Hx Peripheral Vascular Disease Pulmonary Medical History: Reports: Hx COPD - 2008 fev1=27%. 2012 bullae Denies: Hx Asthma Neurological Medical History: Reports: Hx Seizures - until 1990. Denies: Hx Cerebrovascular Accident Renal/ Medical History: Denies: Hx Peritoneal Dialysis Malignancy Medical History: Reports Hx Prostate Cancer GI Medical History: Reports: Hx Gastroesophageal Reflux Disease. Denies: Hx Hepatitis, Hx Hiatal Hernia, Hx Ulcer Musculoskeltal Medical History: Reports Hx Arthritis Psychiatric Medical History: Reports: Hx Depression Infectious Medical History: Denies: Hx Hepatitis Past Surgical History: Reports: Hx Orthopedic Surgery - L Knee Replacement, Other - 1993 Prostatectomy. Denies: Hx Open Heart Surgery, Hx Pacemaker - Immunizations Immunizations up to date: Yes Hx Diphtheria, Pertussis, Tetanus Vaccination: Yes Hx Pneumococcal Vaccination: 12/18/13 Review of Systems - Review of Systems Constitutional: denies: Chills, Fever EENT: No symptoms reported Cardiovascular: No symptoms reported Respiratory: No symptoms reported Gastrointestinal: No symptoms reported Genitourinary: No symptoms reported Male Genitourinary: No symptoms reported Musculoskeletal: See HPI Skin: No symptoms reported Hematologic/Lymphatic: No symptoms reported Neurological/Psychological: No symptoms reported Physical Exam - Vital signs Vitals: Temp Pulse Resp BP Pulse Ox 97.8 F 90 16 119/69 94 07/11/16 18:10 07/11/16 18:10 07/11/16 18:10 07/11/16 18:10 07/11/16 18:10 Notes: Physical exam: GENERAL: 35-year-old man, alert and oriented 3, no acute distress HEAD: Atraumatic, normocephalic. EYES: Pupils equal round and reactive to light, extraocular movements intact, sclera anicteric, conjunctiva are normal. ENT: TMs normal, nares patent, oropharynx clear without exudates. Moist mucous membranes. NECK: Normal range of motion, supple without lymphadenopathy or JVD. LUNGS: Breath sounds clear to auscultation bilaterally and equal. No wheezes rales or rhonchi. HEART: Regular rate and rhythm without murmurs, rubs or gallops. ABDOMEN: Soft, normoactive bowel sounds. No tenderness to palpation. No guarding, no rebound. No masses appreciated. EXTREMITIES: Patient does have pain to the left shoulder and left neck and chest wall with range of motion. This is the pain that the patient states she' s been experiencing. NEUROLOGICAL: Cranial nerves II through XII grossly intact. Normal speech, normal gait. PSYCH: Normal mood, normal affect. SKIN: Warm, Dry, normal turgor, no rashes or lesions noted. Course - Re-evaluation Re-evalutation: 07/11/16 21:10 Note: I discussed the issue of chest pain and the patient's age and my desire to bring him into the hospital for further observation. He is adamant about going home he has a family member that's going back to [place] tomorrow at 11 AM and he states he does not want to stay and wants to leave. I've given him instructions on what to look out for and to return if he does not feel well. I have also advised him to follow-up with Dr. lAves tomorrow. - Vital Signs Vital signs: Temp Pulse Resp BP Pulse Ox 97.8 F 90 11 L 137/76 H 92 07/11/16 18:10 07/11/16 18:10 07/11/16 21:00 07/11/16 21:00 07/11/16 21:00 - Laboratory Result Diagrams: 07/11/16 18:48 07/11/16 18:48 Laboratory results interpreted by me: 07/11/16 07/11/16 18:48 18:48 RBC 4.04 L Hgb 11.8 L Hct 35.9 L RDW 20.8 H Eosinophils % 6.8 H Basophils % 3.3 H Creatinine 1.84 H Est GFR ( Amer) 44 L Est GFR (Non-Af Amer) 36 L Glucose 148 H Direct Bilirubin 0.6 H - Diagnostic Test Radiology reviewed: Image reviewed, Reports reviewed - CT the edges no acute process. Chest x-ray is clear. - EKG Interpretation by Me Rate: Normal Rhythm: NSR - EKG shows normal sinus rhythm with a ventricular rate of 89, no acute ST-T wave changes Discharge - Discharge Clinical Impression: chest pain Condition: Stable Disposition: HOME, SELF-CARE Instructions: Chest Pain of Unclear Cause ([facility]) Additional Instructions: Recommendations: Rest, drink plenty of fluids, follow-up with Dr. Alves: Call the office in the morning. Dr. Nj will be able to see all the blood work and x-rays done in the ER today. Return to the emergency room for any worsening chest pain, shortness of breath or any concerns he getting worse. Referrals: CLAUDIA ALVES MD [Primary Care Provider] - Follow up tomorrow
[2016-07-11 21:02] VITALS: BP 137/76
--- NOTE | 2016-07-11 21:35 | EKG REPORT ---
SEVERITY:- BORDERLINE ECG - SINUS RHYTHM BORDERLINE T WAVE ABNORMALITIES : Confirmed by: Babar Bustamante 11-Jul-2016 21:34:59
== END 2016-07-11 21:02 | disposition home or self-care (01) ==
LOC: ER 18:09
DX: R07.89 Other chest pain (principal); M54.2 Cervicalgia; M25.512 Pain in left shoulder; G89.29 Other chronic pain; I10 Essential (primary) hypertension; J44.9 Chronic obstructive pulmonary disease, unspecified; Z91.81 History of falling; Z85.46 Personal history of malignant neoplasm of prostate; Z87.19 Personal history of other diseases of the digestive system
CPT/HCPCS: 36415; 70450; 71010; 80053; 82550; 82553; 84484; 85025; 93005; 93010; 99285

== ENCOUNTER 2016-10-11 13:53 | Emergency (ER) | payer MEDICARE, OTHER ==
--- NOTE | 2016-10-11 15:06 | RADIOLOGY REPORT (SQ) ---
EXAM DESCRIPTION: CT HEAD WITHOUT COMPLETED DATE/TIME: 10/11/2016 2:42 pm REASON FOR STUDY: seizure COMPARISON: 07/11/2016 TECHNIQUE: Axial images acquired through the brain without intravenous contrast. Images reviewed wi th bone, brain and subdural windows. Images stored on PACS. All CT scanners at this facility use dose modulation, iterative reconstruction, and/or weight based d osing when appropriate to reduce radiation dose to as low as reasonably achievable (ALARA). [facility]: Dose Right [facility]: CareDose [facility]: Dose Right [facility]: Teradose 4D [facility]: [email or web address] RADIATION DOSE: Up-to-date CT equipment and radiation dose reduction techniques were employed. CTDIv ol: 64.6 mGy. DLP: 1163 mGy-cm. mGy. LIMITATIONS: None. FINDINGS: VENTRICLES: Atrophy. CEREBRUM: No masses. No hemorrhage. No midline shift. Normal caraballo/white matter differentiation. N o evidence for acute infarction. Moderate chronic small vessel ischemic disease. CEREBELLUM: No masses. No hemorrhage. No alteration of density. No evidence for acute infarction. EXTRAAXIAL SPACES: No fluid collections. No masses. ORBITS AND GLOBE: No intra- or extraconal masses. Normal contour of globe without masses. CALVARIUM: No fracture. PARANASAL SINUSES: No fluid or mucosal thickening. SOFT TISSUES: No mass or hematoma. OTHER: No other significant finding. IMPRESSION: 1. No evidence of acute event involving the brain. 2. Moderate atrophy and moderate chronic small vessel ischemic disease. TECHNICAL DOCUMENTATION: JOB ID: [id number] Quality ID # [id number]: Final reports with documentation of one or more dose reduction techniques (e.g., Au tomated exposure control, adjustment of the mA and/or kV according to patient size, use of iterative reconstruction technique) 2010 [employer]- All Rights Reserved
--- NOTE | 2016-10-11 15:17 | RADIOLOGY REPORT (SQ) ---
EXAM DESCRIPTION: CHEST PA/LAT COMPLETED DATE/TIME: 10/11/2016 3:00 pm REASON FOR STUDY: AMS COMPARISON: 09/12/2014 EXAM PARAMETERS: NUMBER OF VIEWS: two views TECHNIQUE: Digital Frontal and Lateral radiographic views of the chest acquired. RADIATION DOSE: NA LIMITATIONS: none FINDINGS: LUNGS AND PLEURA: No opacities, masses or pneumothorax. No pleural effusion. MEDIASTINUM AND HILAR STRUCTURES: Tortuous aorta with chronic prominence of the ascending aorta. Lar ge hiatal hernia. HEART AND VASCULAR STRUCTURES: Cardiac silhouette is of normal size. Mild vascular congestion. BONES: No acute findings. HARDWARE: None in the chest. OTHER: No other significant finding. IMPRESSION: 1. Mild vascular congestion. 2. Large hiatal hernia. TECHNICAL DOCUMENTATION: JOB ID: [id number] [employer]- All Rights Reserved
[2016-10-11 15:20] LABS: ABSOLUTE BASOPHILS # (AUTO) 0.1 10^3/uL (0.0-0.2); ABSOLUTE LYMPHOCYTES (AUTO) 1.1 10^3/uL (0.5-4.7); ABSOLUTE MONOCYTES (AUTO) 0.3 10^3/uL (0.1-1.4); ABSOLUTE NEUT (AUTO) 2.7 10^3/uL (1.7-8.2); BASOPHILS % (AUTO) 3.1 % (0-2); EOSINOPHILS % (AUTO) 0.3 % (0-6); HEMATOCRIT 36.3 % (37.9-51.0); HEMOGLOBIN 12.2 g/dL (13.5-17.0); HGB HCT DIFFERENCE 0.3; LYMPHOCYTES % (AUTO) 25.6 % (13-45); MEAN CORPUSCULAR HEMOGLOBIN 29.2 pg (27.0-33.4); MEAN CORPUSCULAR HGB CONC 33.6 g/dL (32.0-36.0); MEAN CORPUSCULAR VOLUME 87 fl (80-97); MONOCYTES % (AUTO) 7.9 % (3-13); RED BLOOD COUNT 4.18 10^6/uL (4.35-5.55); RED CELL DISTRIBUTION WIDTH 19.7 % (11.5-14.0); SEGMENTED NEUTROPHILS % (AUTO) 63.1 % (42-78); WHITE BLOOD COUNT 4.2 10^3/uL (4.0-10.5)
[2016-10-11 15:25] LABS: PROTHROMBIN TIME 13.1 SEC (11.4-15.4)
[2016-10-11 15:35] LABS: ALANINE AMINOTRANSFERASE 24 U/L (21-72); ALBUMIN 4.4 g/dL (3.5-5.0); ALKALINE PHOSPHATASE 67 U/L (38-126); ANION GAP 8 (5-19); ASPARTATE AMINO TRANSFERASE 20 U/L (17-59); BILIRUBIN,DIRECT 0.4 mg/dL (0.0-0.4); BILIRUBIN,TOTAL 0.9 mg/dL (0.2-1.3); BLOOD UREA NITROGEN 19 mg/dL (7-20); CALCIUM 9.6 mg/dL (8.4-10.2); CARBON DIOXIDE 23 mmol/L (22-30); CHLORIDE 107 mmol/L (98-107); CREATININE RESULT 1.62 mg/dL (0.52-1.25); GLUCOSE 109 mg/dL (75-110); POTASSIUM 4.1 mmol/L (3.6-5.0); SODIUM 138.4 mmol/L (137-145); TOTAL PROTEIN 8.1 g/dL (6.3-8.2)
[2016-10-11 15:41] LABS: ANISOCYTOSIS 2+; OVALOCYTES SLIGHT; POIKILOCYTOSIS 1+; TOXIC GRANULATION SLIGHT
--- NOTE | 2016-10-11 15:45 | ER Document Report ---
ED Fall - General Mode of Arrival: Ambulatory Information source: Patient TRAVEL OUTSIDE OF THE [place] IN LAST 30 DAYS: No - HPI Occurred: Just prior to arrival Where: [facility] Location of injury/pain: Head Quality of pain: Achy <RUBEN LOWRY - Last Filed: 10/11/16 20:23> <ANTJENNA MARIZOL - Last Filed: 10/11/16 23:02> - General Chief Complaint: Fall Stated Complaint: POSSIBLE SEIZURE Time Seen by Provider: 10/11/16 14:30 Notes: Patient is a 76 year old male that presents to the emergency department today with complaints of a fall that occurred just prior to arrival. Patient states that he was at the library, and "lost his concentration" and fell backwards hitting his head. Patient is somewhat of a poor historian so history is limited. (RUBEN LOWRY) - Related data Allergies/Adverse Reactions: No Known Allergies Allergy (Verified 05/22/16 05:54) Past Medical History - General Information source: Patient - Social History Smoking Status: Never Smoker Cigarette use (# per day): No Chew tobacco use (# tins/day): No Frequency of alcohol use: None Drug Abuse: None Lives with: Family Family History: Reviewed & Not Pertinent, CAD, Hyperlipidemia, Hypertension - Past Medical History Cardiac Medical History: Reports: Hx Hypercholesterolemia, Hx Hypertension, Hx Heart Murmur - 2012 aortic stenosis with [id number] Pulmonary Medical History: Reports: Hx COPD - 2008 fev1=27%. 2012 bullae Neurological Medical History: Reports: Hx Seizures - until 1990 Malignancy Medical History: Reports Hx Prostate Cancer GI Medical History: Reports: Hx Gastroesophageal Reflux Disease Musculoskeltal Medical History: Reports Hx Arthritis Psychiatric Medical History: Reports: Hx Depression Past Surgical History: Reports: Hx Orthopedic Surgery - L Knee Replacement, Other - 1993 Prostatectomy - Immunizations Immunizations up to date: Yes Hx Diphtheria, Pertussis, Tetanus Vaccination: Yes Hx Pneumococcal Vaccination: 12/18/13 <RUBEN LOWRY - Last Filed: 10/11/16 20:23> Review of Systems - Review of Systems Constitutional: See HPI, Other - fall EENT: See HPI, Other - head pain Cardiovascular: No symptoms reported Respiratory: No symptoms reported Gastrointestinal: No symptoms reported Genitourinary: No symptoms reported Male Genitourinary: No symptoms reported Musculoskeletal: No symptoms reported Skin: No symptoms reported Hematologic/Lymphatic: No symptoms reported Neurological/Psychological: No symptoms reported -: Yes All other systems reviewed and negative <RUBEN LOWRY - Last Filed: 10/11/16 20:23> Physical Exam <RUBEN LOWRY - Last Filed: 10/11/16 20:23> <JENNA CAIN - Last Filed: 10/11/16 23:02> - Vital signs Vitals: Temp Pulse Resp BP Pulse Ox 98.3 F 81 21 H 139/70 H 98 10/11/16 14:07 10/11/16 14:07 10/11/16 14:07 10/11/16 14:07 10/11/16 14:07 - Notes Notes: Physical Exam: General: Alert, appears well. HEENT: Normocephalic. Atraumatic. PERRL. Extraocular movements intact. Oropharynx clear. Neck: Supple. Respiratory: No respiratory distress. Clear and equal breath sounds bilaterally. Cardiovascular: Regular rate and rhythm. Abdominal: Normal Inspection. Non-tender. No distension. Normal Bowel Sounds. Back: Paraspinal tenderness with palpation C5-C7. Left trapezius tenderness with palpation. No deformity or step off. Extremities: Moves all four extremities. Upper extremities: Normal inspection. Normal ROM. Lower extremities: Normal inspection. No edema. Normal ROM. Neurological: Normal cognition. AAOx4. Normal speech. Psychological: Normal affect. Normal Mood. Skin: Warm. Dry. Normal color. (RUBEN LOWRY) Course - Laboratory Result Diagrams: 10/11/16 15:10 10/11/16 15:10 <RUBEN LOWRY - Last Filed: 10/11/16 20:23> - Laboratory Result Diagrams: 10/11/16 15:10 10/11/16 15:10 - Diagnostic Test Radiology reviewed: Reports reviewed <JENNA CAIN - Last Filed: 10/11/16 23:02> - Re-evaluation Re-evalutation: 10/11/16 Patient is a 76-year-old male who states that he lost his balance and fell today. No acute findings on imaging of head. No midline cervical spine tenderness. No acute findings on blood work and troponin negative 2. Patient ambulates without difficulty. Feels better after eating and drinking. No acute findings. No evidence for syncope. Patient does not describe any concerning symptoms related to syncope. Stable for discharge. Return if any worsening or concerning symptoms. Understands and agrees with plan. (JENNA CAIN) - Vital Signs Vital signs: Temp Pulse Resp BP Pulse Ox 97.3 F 81 22 H 163/93 H 95 10/11/16 18:42 10/11/16 14:07 10/11/16 18:18 10/11/16 18:18 10/11/16 18:18 - Laboratory Laboratory results interpreted by me: 10/11/16 10/11/16 10/11/16 15:10 15:10 15:59 RBC 4.18 L Hgb 12.2 L Hct 36.3 L RDW 19.7 H Basophils % 3.1 H Creatinine 1.62 H Est GFR ( Amer) 50 L Est GFR (Non-Af Amer) 42 L Urine Protein 100 H Discharge <RUBEN LOWRY - Last Filed: 10/11/16 20:23> <JENNA CAIN - Last Filed: 10/11/16 23:02> - Discharge Clinical Impression: Fall Qualifiers: Encounter type: initial encounter Qualified Code(s): W19.XXXA - Unspecified fall, initial encounter Closed head injury Qualifiers: Encounter type: initial encounter Qualified Code(s): S09.90XA - Unspecified injury of head, initial encounter Condition: Stable Disposition: HOME, SELF-CARE Instructions: Head Injury Precautions ([facility]) Referrals: CLAUDIA ALVES MD [Primary Care Provider] - Follow up tomorrow Scribe Attestation: 10/11/16 23:01 I personally performed the services described in the documentation, reviewed and edited the documentation which was dictated to the scribe in my presence, and it accurately records my words and actions. (JENNA CAIN) Scribe Documentation - Scribe Written by Joaquin:: Joaquin Gordon, 10/11/2016 [id number] acting as scribe for :: Ant <RUBEN LOWRY - Last Filed: 10/11/16 20:23>
[2016-10-11 16:09] LABS: APPEARANCE,URINE CLEAR; BILIRUBIN,URINE NEGATIVE (NEGATIVE); GLUCOSE, URINE NEGATIVE (NEGATIVE); KETONES,URINE NEGATIVE (NEGATIVE); LEUKOCYTE ESTERASE,URINE NEGATIVE (NEGATIVE); NITRITE,URINE NEGATIVE (NEGATIVE); PROTEIN,URINE 100 mg/dL (NEGATIVE); URINE SPECIFIC GRAVITY 1.014; UROBILINOGEN,URINE NEGATIVE mg/dL (<2.0)
[2016-10-11] MEDS ORDERED: ACETAMINOPHEN 325 MG TABLET PO ONE (18:33)
[2016-10-11] MEDS ORDERED: ACETAMINOPHEN 325 MG TABLET ONE (18:37)
[2016-10-11 18:43] VITALS: BP 163/93
--- NOTE | 2016-10-12 10:55 | EKG REPORT ---
SEVERITY:- NORMAL ECG - SINUS RHYTHM : Confirmed by: Babar Bustamante 12-Oct-2016 10:55:03
== END 2016-10-11 18:45 | disposition home or self-care (01) ==
LOC: ER 13:53
DX: S09.90XA Unspecified injury of head, initial encounter (principal); W18.30XA Fall on same level, unspecified, initial encounter; Y92.241 Library as the place of occurrence of the external cause
CPT/HCPCS: 93005; 99284; 36415; 85025; 85610; 80053; 81001; 84484; 71020; 70450; 93010; A9270

== ENCOUNTER 2017-02-16 01:00 | Emergency (ER) | payer MEDICARE, MEDICAID ==
[2017-02-16] MEDS ORDERED: NORMAL SALINE 1000 ML 1,000 ML IV ONE (01:55)
--- NOTE | 2017-02-16 01:56 | ER Document Report ---
ED General - General Chief Complaint: Shortness Of Breath Stated Complaint: SHORTNESS OF BREATH Time Seen by Provider: 02/16/17 01:45 TRAVEL OUTSIDE OF THE [place] IN LAST 30 DAYS: No - HPI Notes: Patient is a 76-year-old male with a history of hypertension, GERD, hypercholesterolemia, COPD who presents to the ED complaining of epigastric/ lower chest pain 3-4 hours that has been relatively constant. Pt also has occ SOB. Patient states that he has had this pain in the past and has been evaluated here for it. Patient denies any significant cardiac history. Patient states that he is not taking any blood thinners. The pain does not radiate. Patient is not sure if food increases or worsens his discomfort. Patient states that he is still urinating normally and having normal bowel movements. Patient denies any calf pain, previous DVT/PE, prolonged immobilization, recent trauma or surgery, or diabetes. patient states that he can ambulate without any worsening symptoms or dyspnea on exertion. Patient does report having a URI illness about 3 weeks ago which has since greatly improved, but patient continues to have an occasional dry nonproductive cough. No other concerns or complaints at this time. Denies any headache, fever, neck pain, URI, sore throat, palpitations, syncope, wheeze, dyspnea, nausea/vomiting/ diarrhea, urinary retention, dysuria, hematuria, or rash. - Related Data Allergies/Adverse Reactions: No Known Allergies Allergy (Verified 02/16/17 01:01) Past Medical History - Social History Smoking Status: Current Some Day Smoker Chew tobacco use (# tins/day): No Frequency of alcohol use: None Drug Abuse: None Family History: Reviewed & Not Pertinent, CAD, Hyperlipidemia, Hypertension Patient has suicidal ideation: No Patient has homicidal ideation: No - Past Medical History Cardiac Medical History: Reports: Hx Hypercholesterolemia, Hx Hypertension, Hx Heart Murmur - 2012 aortic stenosis with Denies: Hx Atrial Fibrillation, Hx Congestive Heart Failure, Hx Heart Attack Pulmonary Medical History: Reports: Hx COPD - 2008 fev1=27%. 2012 bullae Denies: Hx Asthma Neurological Medical History: Reports: Hx Seizures - until 1990 Renal/ Medical History: Denies: Hx Peritoneal Dialysis Malignancy Medical History: Reports Hx Prostate Cancer GI Medical History: Reports: Hx Gastroesophageal Reflux Disease. Denies: Hx Hiatal Hernia, Hx Ulcer Musculoskeltal Medical History: Reports Hx Arthritis Psychiatric Medical History: Reports: Hx Depression Past Surgical History: Reports: Hx Orthopedic Surgery - L Knee Replacement, Other - 1993 Prostatectomy. Denies: Hx Open Heart Surgery - Immunizations Immunizations up to date: Yes Hx Diphtheria, Pertussis, Tetanus Vaccination: Yes Hx Pneumococcal Vaccination: 12/18/13 Review of Systems - Review of Systems Notes: REVIEW OF SYSTEMS: CONSTITUTIONAL : Denies fever, chills, or sweats. Denies recent illness. EENT: Denies eye, ear, throat, or mouth pain or symptoms. Denies nasal or sinus congestion or discharge. Denies throat, tongue, or mouth swelling or difficulty swallowing. CARDIOVASCULAR: see hpi. Denies palpitations or racing or irregular heart beat. Denies ankle edema. RESPIRATORY: see hpi GASTROINTESTINAL: see hpil. Denies nausea, vomiting, or diarrhea. Denies blood in vomitus, stools, or per rectum. Denies black, tarry stools. Denies constipation. GENITOURINARY: Denies difficulty urinating, painful urination, burning, frequency, blood in urine, or discharge. MUSCULOSKELETAL: Denies back or neck pain or stiffness. Denies joint pain or swelling. SKIN: Denies rash, lesions or sores. NEUROLOGICAL: Denies confusion or altered mental status. Denies passing out or loss of consciousness. Denies dizziness or lightheadedness. Denies headache. Denies weakness or paralysis or loss of use of either side. Denies problems with gait or speech. Denies sensory loss, numbness, or tingling. Denies seizures. PSYCHIATRIC: Denies anxiety or stress. Denies depression, suicidal ideation, or homicidal ideation. ALL OTHER SYSTEMS REVIEWED AND NEGATIVE. Dictation was performed using [email or web address] voice recognition software Physical Exam - Vital signs Vitals: Temp Resp BP Pulse Ox 97.7 F 12 156/79 H 94 02/16/17 01:23 02/16/17 01:23 02/16/17 01:23 02/16/17 01:23 Notes: PHYSICAL EXAMINATION: GENERAL: Well-appearing, well-nourished and in no acute distress. A&Ox4 HEAD: Atraumatic, normocephalic. EYES: Pupils equal round and reactive to light, extraocular movements intact, sclera anicteric, conjunctiva are normal. ENT: Nares patent and without discharge. oropharynx clear without exudates. No tonsilar hypertrophy or erythema. Moist mucous membranes. NECK: Normal range of motion, supple without lymphadenopathy Chest: Non-tender. equal rise/fall. no flail chest. LUNGS: Breath sounds clear to auscultation bilaterally and equal. No wheezes rales or rhonchi. HEART: Regular rate and rhythm without murmurs, rubs, gallops. ABDOMEN: Soft, nondistended abdomen. No guarding, no rebound. No masses appreciated. Normal bowel sounds present. No CVA tenderness bilaterally. + mild epigastric tenderness (tenderness elicited corresponds to pain described) Musculoskeletal: FROM to passive/active. Strength 5+/5. Vamsi neg. No calf swelling or erythema Extremities: No cyanosis, clubbing, or edema b/l. Peripheral pulses 2+. Capillary refill less than 3 seconds. NEUROLOGICAL: Cranial nerves grossly intact. Normal speech. Normal sensory, motor exams PSYCH: Normal mood, normal affect. SKIN: Warm, Dry, normal turgor, no rashes or lesions noted. Course - Re-evaluation Re-evalutation: 02/16/17 05:25 Patient is an afebrile, well-hydrated, 76-year-old male with epigastric/lower chest pain, suspect gastritis versus GERD. Vitals are stable. PE is otherwise unremarkable. Patient is tolerating p.o. CBC, CMP, cardiac enzymes/EKG 2, chest x-ray are unremarkable for any acute pathology. A GI cocktail was given which immediately resolved the patient's symptoms and he is feeling much better. There is no sign of right heart strain. Heart score of 3. Well's score of 0. Pt would have had a negative PERC score if it wasn't for age; otherwise, per history, pt does not have any strong risk factors including no pleuritic pain, non-tachycardic, unremarkable EKG. Low suspicion for any ACS, PE , pneumothorax, pericarditis, dissection, respiratory compromise, severe dehydration, sepsis, meningitis, or other systemic emergent condition at this time. Patient is aware that his condition can change from initial presentation and he needs to monitor symptoms closely and seek medical attention for any acute changes. Pt has prilosec at home that he takes daily. I will send him home with carafate to take as well. Recommend conservative measures for symptoms. Recheck with your PCM in 3-5 days. Consider consult with GI. Return to the ED with any worsening/concerning symptoms otherwise as reviewed in discharge. Patient is in agreement. - Vital Signs Vital signs: Temp Pulse Resp BP Pulse Ox 97.7 F 67 15 157/79 H 94 02/16/17 01:27 02/16/17 01:27 02/16/17 03:01 02/16/17 03:01 02/16/17 03:01 - Laboratory Result Diagrams: 02/16/17 02:05 02/16/17 02:05 Laboratory results interpreted by me: 02/16/17 02/16/17 02:05 02:05 RBC 3.96 L Hgb 11.6 L Hct 34.8 L RDW 20.1 H Band Neutrophils % 1 L Eosinophils % (Manual) 8 H Creatinine 1.62 H Est GFR ( Amer) 50 L Est GFR (Non-Af Amer) 42 L Discharge - Discharge Clinical Impression: Gastritis Qualifiers: Gastritis type: unspecified gastritis Chronicity: acute Gastritis bleeding: without bleeding Qualified Code(s): K29.00 - Acute gastritis without bleeding Condition: Stable Disposition: HOME, SELF-CARE Instructions: Gastritis ([facility]), Reflux Disease (GERD) ([facility]) Additional Instructions: Maintain adequate fluid and food intake Avoid spicy foods, caffeine, smoking, or acidic foods/liquids Take your Prilosec daily and take carafate as directed tylenol if needed Monitor for any worsening symptoms Make sure you are staying hydrated enough to urinate and have normal BM's Recheck with your PCM in 3-5 days Consider consult with Gastroenterology for ongoing/worsening symptoms--you may need an endoscopy performed to further evaluate your epigastric pains. Return to the ED with any worsening symptoms and/or development of fever, headache, chest pain, palpitations, syncope, shortness of breath, trouble breathing, abdominal pain, n/v/d, blood in stool/urine, weakness, or other worsening symptoms that are concerning to you. Prescriptions: Sucralfate [Carafate] 1 gm PO QID PRN #420 ml PRN Reason: Forms: Elevated Blood Pressure Referrals: WILLOW SCHMIDT MD [ACTIVE STAFF] - Follow up in 1 week
[2017-02-16 02:25] LABS: HEMATOCRIT 34.8 % (37.9-51.0); HEMOGLOBIN 11.6 g/dL (13.5-17.0); MEAN CORPUSCULAR HEMOGLOBIN 29.3 pg (27.0-33.4); MEAN CORPUSCULAR HGB CONC 33.3 g/dL (32.0-36.0); MEAN CORPUSCULAR VOLUME 88 fl (80-97); RED BLOOD COUNT 3.96 10^6/uL (4.35-5.55); RED CELL DISTRIBUTION WIDTH 20.1 % (11.5-14.0); WHITE BLOOD COUNT 4.7 10^3/uL (4.0-10.5)
[2017-02-16 02:30] LABS: ALANINE AMINOTRANSFERASE 27 U/L (21-72); ALBUMIN 4.2 g/dL (3.5-5.0); ALKALINE PHOSPHATASE 58 U/L (38-126); ANION GAP 11 (5-19); ASPARTATE AMINO TRANSFERASE 19 U/L (17-59); BILIRUBIN,DIRECT 0.2 mg/dL (0.0-0.4); BILIRUBIN,TOTAL 0.8 mg/dL (0.2-1.3); BLOOD UREA NITROGEN 15 mg/dL (7-20); CALCIUM 9.8 mg/dL (8.4-10.2); CARBON DIOXIDE 26 mmol/L (22-30); CHLORIDE 103 mmol/L (98-107); CREATINE KINASE 113 U/L (55-170); CREATININE RESULT 1.62 mg/dL (0.52-1.25); GLUCOSE 110 mg/dL (75-110); SODIUM 139.6 mmol/L (137-145); TOTAL PROTEIN 7.4 g/dL (6.3-8.2)
[2017-02-16 02:42] LABS: CREATINE KINASE MB 0.54 ng/mL (<4.55)
[2017-02-16 02:47] LABS: TROPONIN I < 0.012 ng/mL
[2017-02-16] MEDS ORDERED: LIDOCAINE 2% VISCOUS SOLN 20 ML UDCUP PO ONE (02:53)
[2017-02-16] MEDS ORDERED: METOCLOPRAMIDE HCL ORAL SOLN 10 MG/10 ML UDCUP PO ONE (02:53)
[2017-02-16] MEDS ORDERED: MAG HYDROX/AL HYDROX/SIMETH SUSP 30 ML UDCUP PO ONE (02:53)
[2017-02-16 03:00] LABS: ABSOLUTE EOSINOPHILS# (MANUAL) 0.4 10^3/uL (0.0-0.6); BAND NEUTROPHILS % (MANUAL) 1 % (3-5); BASOPHILS % (MANUAL) 0 % (0-2); EOSINOPHILS % (MANUAL) 8 % (0-6); LYMPHOCYTES % (MANUAL) 33 % (13-45); NUCLEATED RED BLOOD CELLS 2 /100 WBC (0); TOTAL CELLS COUNTED 100
--- NOTE | 2017-02-16 03:04 | RADIOLOGY REPORT (SQ) ---
EXAM DESCRIPTION: CHEST SINGLE VIEW CLINICAL HISTORY: chest pain/epigastric pain COMPARISON: 01/09/2017 FINDINGS: Single frontal view of the chest. The patient is slightly rotated. Heart is not definitely enlarged. Atherosclerotic calcification and tortuosity of thoracic aorta. Unchanged linear bibasilar opacities likely related to scarring or atelectasis. No lobar consolidation, pneumothorax, or pleural effusion. Leads overlie the chest. No acute osseous abnormalities. Upper abdominal soft tissues are unremarkable. IMPRESSION: 1. No acute pulmonary process identified.
[2017-02-16 03:06] LABS: ANISOCYTOSIS 2+; HYPOCHROMASIA SLIGHT; OVALOCYTES SLIGHT; POIKILOCYTOSIS SLIGHT; POLYCHROMASIA SLIGHT; SCHISTOCYTES SLIGHT; TOXIC GRANULATION SLIGHT; TOXIC VACUOLATION PRESENT
[2017-02-16 05:41] VITALS: BP 144/68
--- NOTE | 2017-02-16 07:35 | EKG REPORT ---
SEVERITY:- NORMAL ECG - SINUS RHYTHM : Confirmed by: Babar Bustamante 16-Feb-2017 07:34:35
--- NOTE | 2017-02-16 21:59 | EKG REPORT ---
SEVERITY:- NORMAL ECG - SINUS RHYTHM : Confirmed by: Babar Bustamante 16-Feb-2017 21:58:52
== END 2017-02-16 05:25 | disposition home or self-care (01) ==
LOC: ER 01:00
DX: K29.00 Acute gastritis without bleeding (principal); K21.9 Gastro-esophageal reflux disease without esophagitis; Z79.899 Other long term (current) drug therapy; J44.9 Chronic obstructive pulmonary disease, unspecified; R06.02 Shortness of breath; I10 Essential (primary) hypertension; R10.13 Epigastric pain; R07.9 Chest pain, unspecified; R05 Cough; F17.200 Nicotine dependence, unspecified, uncomplicated; Z85.46 Personal history of malignant neoplasm of prostate; Z82.49 Family history of ischemic heart disease and other diseases of the circulatory system
CPT/HCPCS: 93005; 99285; 96360; 36415; 82553; 82550; 85025; 80053; 84484; 71010; 93010; J3490; A9270; J7030

== ENCOUNTER 2017-04-24 14:14 | Emergency (ER) | payer MEDICARE, MEDICAID ==
[2017-04-24 14:35] LABS: HEMATOCRIT 35.1 % (37.9-51.0); HEMOGLOBIN 11.6 g/dL (13.5-17.0); MEAN CORPUSCULAR HEMOGLOBIN 29.3 pg (27.0-33.4); MEAN CORPUSCULAR HGB CONC 33.1 g/dL (32.0-36.0); MEAN CORPUSCULAR VOLUME 89 fl (80-97); RED BLOOD COUNT 3.95 10^6/uL (4.35-5.55); RED CELL DISTRIBUTION WIDTH 19.9 % (11.5-14.0); WHITE BLOOD COUNT 4.1 10^3/uL (4.0-10.5)
[2017-04-24 14:48] LABS: ALANINE AMINOTRANSFERASE 14 U/L (21-72); ALBUMIN 4.4 g/dL (3.5-5.0); ALKALINE PHOSPHATASE 49 U/L (38-126); ANION GAP 11 (5-19); ASPARTATE AMINO TRANSFERASE 21 U/L (17-59); BILIRUBIN,DIRECT 0.1 mg/dL (0.0-0.4); BILIRUBIN,TOTAL 0.6 mg/dL (0.2-1.3); BLOOD UREA NITROGEN 20 mg/dL (7-20); CALCIUM 9.8 mg/dL (8.4-10.2); CARBON DIOXIDE 25 mmol/L (22-30); CHLORIDE 105 mmol/L (98-107); CREATINE KINASE 102 U/L (55-170); GLUCOSE 128 mg/dL (75-110); POTASSIUM 4.4 mmol/L (3.6-5.0); SODIUM 140.5 mmol/L (137-145); TOTAL PROTEIN 7.4 g/dL (6.3-8.2)
--- NOTE | 2017-04-24 14:51 | ER Document Report ---
ED General - General Chief Complaint: Fall Injury Stated Complaint: FALL/ALTERED Time Seen by Provider: 04/24/17 14:19 Mode of Arrival: Medic Information source: Patient, Emergency Med Personnel Notes: 76-year-old male presents from home with concerns of neck pain. Patient lives by himself has no history of dementia per his own manager forensic. It is noted that the patient was complaining of neck pain after tripping and falling at the bus stop, patient then ambulated home, he has had intermittent orientation per ems TRAVEL OUTSIDE OF THE [place] IN LAST 30 DAYS: No - HPI Onset: Just prior to arrival Onset/Duration: Sudden Quality of pain: Achy Severity: Mild Pain Level: 1 Associated symptoms: Other Exacerbated by: Movement Relieved by: Denies Similar symptoms previously: No Recently seen / treated by doctor: No - Related Data Allergies/Adverse Reactions: No Known Allergies Allergy (Verified 02/16/17 01:01) Past Medical History - Social History Smoking Status: Never Smoker Cigarette use (# per day): No Chew tobacco use (# tins/day): No Smoking Education Provided: No Family History: Reviewed & Not Pertinent, CAD, Hyperlipidemia, Hypertension - Past Medical History Cardiac Medical History: Reports: Hx Hypercholesterolemia, Hx Hypertension, Hx Heart Murmur - 2012 aortic stenosis with [id number] Denies: Hx Atrial Fibrillation, Hx Congestive Heart Failure, Hx Heart Attack Pulmonary Medical History: Reports: Hx COPD - 2008 fev1=27%. 2012 bullae Denies: Hx Asthma Neurological Medical History: Reports: Hx Seizures - until 1990 Renal/ Medical History: Denies: Hx Peritoneal Dialysis Malignancy Medical History: Reports Hx Prostate Cancer GI Medical History: Reports: Hx Gastroesophageal Reflux Disease. Denies: Hx Hiatal Hernia, Hx Ulcer Musculoskeltal Medical History: Reports Hx Arthritis Psychiatric Medical History: Reports: Hx Depression Past Surgical History: Reports: Hx Orthopedic Surgery - L Knee Replacement, Other - 1993 Prostatectomy. Denies: Hx Open Heart Surgery - Immunizations Immunizations up to date: Yes Hx Diphtheria, Pertussis, Tetanus Vaccination: Yes Hx Pneumococcal Vaccination: 12/18/13 Review of Systems - Review of Systems Notes: REVIEW OF SYSTEMS: CONSTITUTIONAL : Denies fever, chills, or sweats. Denies recent illness. EENT: Denies eye, ear, throat, or mouth pain or symptoms. Denies nasal or sinus congestion or discharge. Denies throat, tongue, or mouth swelling or difficulty swallowing. CARDIOVASCULAR: Denies chest pain. Denies palpitations or racing or irregular heart beat. Denies ankle edema. RESPIRATORY: Denies cough, cold, or chest congestion. Denies shortness of breath, difficulty breathing, or wheezing. GASTROINTESTINAL: Denies abdominal pain or distention. Denies nausea, vomiting , or diarrhea. Denies blood in vomitus, stools, or per rectum. Denies black, tarry stools. Denies constipation. GENITOURINARY: Denies difficulty urinating, painful urination, burning, frequency, blood in urine, or discharge. MUSCULOSKELETAL: Admits neck pain back pain SKIN: Denies rash, lesions or sores. HEMATOLOGIC : Denies easy bruising or bleeding. LYMPHATIC: Denies swollen, enlarged glands. NEUROLOGICAL: Intermittently oriented PSYCHIATRIC: Denies anxiety or stress. Denies depression, suicidal ideation, or homicidal ideation. ALL OTHER SYSTEMS REVIEWED AND NEGATIVE. PHYSICAL EXAMINATION: GENERAL: Well-appearing, well-nourished and in no acute distress. HEAD: Atraumatic, normocephalic. EYES: Pupils equal round and reactive to light, extraocular movements intact, conjunctiva are normal. ENT: Nares patent, oropharynx clear without exudates. Moist mucous membranes. NECK: C-collar in place there is tenderness on palpation of the C6 region LUNGS: Breath sounds clear to auscultation bilaterally and equal. No wheezes rales or rhonchi. HEART: Regular rate and rhythm without murmurs ABDOMEN: Soft, nontender, nondistended abdomen. No guarding, no rebound. No masses appreciated. Female : deferred Musculoskeletal: Normal range of motion, no pitting or edema. No cyanosis. There on palpation of the T10 NEUROLOGICAL: Cranial nerves grossly intact. Normal speech, normal gait. Normal sensory, motor exams PSYCH: Normal mood, normal affect. SKIN: Warm, Dry, normal turgor, no rashes or lesions noted. Dictation was performed using [employer] voice recognition software Physical Exam - Vital signs Vitals: Resp Pulse Ox 11 L 91 L 04/24/17 14:26 04/24/17 14:26 Course - Re-evaluation Re-evalutation: 04/24/17 14:51 Lab work imaging pending 04/24/17 16:53 Imaging noted an infiltrate in the lungs, otherwise patient looks well is in no distress, he was reevaluated and is completely oriented talkative in no distress , he looks much better than when he first arrived, patient admits that he has been coughing for the past 3-4 days, patient will be treated for his pneumonia, he is in no pain at all and has talked with family and significant other Therefore patient is stable for discharge looks well and will be discharged home at this time After performing a Medical Screening Examination, I estimate there is LOW risk for ACUTE CORONARY SYNDROME, PULMONARY EMBOLI, RESPIRATORY FAILURE, SEPSIS OR MENINGITIS, thus I consider the discharge disposition reasonable. I have reevaluated this patient multiple times and no significant life threatening changes are noted. The patient and I have discussed the diagnosis and risks, and we agree with discharging home with close follow-up. We also discussed returning to the Emergency Department immediately if new or worsening symptoms occur. We have discussed the symptoms which are most concerning (e.g., changing or worsening pain, trouble swallowing or breathing, neck stiffness, fever) that necessitate immediate return. - Vital Signs Vital signs: Temp Pulse Resp BP Pulse Ox 98.0 F 13 111/88 H 99 04/24/17 14:38 04/24/17 14:34 04/24/17 14:34 04/24/17 14:34 - Laboratory Result Diagrams: 04/24/17 14:18 04/24/17 14:18 Laboratory results interpreted by me: 04/24/17 04/24/17 14:18 14:18 RBC 3.95 L Hgb 11.6 L Hct 35.1 L RDW 19.9 H Band Neutrophils % 1 L Basophils % (Manual) 3 H Creatinine 1.66 H Est GFR ( Amer) 49 L Est GFR (Non-Af Amer) 40 L Glucose 128 H ALT 14 L - Diagnostic Test Radiology reviewed: Image reviewed, Reports reviewed Discharge - Discharge Clinical Impression: Pneumonia Qualifiers: Pneumonia type: due to unspecified organism Laterality: left Lung location: lower lobe of lung Qualified Code(s): J18.1 - Lobar pneumonia, unspecified organism Fall Qualifiers: Encounter type: initial encounter Qualified Code(s): W19.XXXA - Unspecified fall, initial encounter Condition: Stable Disposition: HOME, SELF-CARE Instructions: Pneumonia ([facility]) Additional Instructions: Follow up with your physician tomorrow for further care or return to the ED IMMEDIATELY if symptoms worsen or new concerns occur. If you cannot afford to follow up with your primary care physician a list of low cost clinics have been provided at the end of your discharge papers as well. Prescriptions: Levofloxacin [Levaquin 750 mg Tablet] 750 mg PO DAILY #4 tablet
[2017-04-24 14:58] LABS: PLATELET COUNT 255 10^3/uL (150-450)
[2017-04-24 15:02] LABS: CREATINE KINASE MB 0.46 ng/mL (<4.55)
[2017-04-24 15:03] LABS: ABSOLUTE LYMPHOCYTES# (MANUAL) 1.6 10^3/uL (0.5-4.7); ABSOLUTE MONOCYTES # (MANUAL) 0.4 10^3/uL (0.1-1.4); ANISOCYTOSIS 2+; BAND NEUTROPHILS % (MANUAL) 1 % (3-5); BASOPHILS % (MANUAL) 3 % (0-2); EOSINOPHILS % (MANUAL) 1 % (0-6); HOWELL-JOLLY BODIES PRESENT; HYPOCHROMASIA SLIGHT; LYMPHOCYTES % (MANUAL) 39 % (13-45); MONOCYTES % (MANUAL) 9 % (3-13); PLATELET CLUMPS PRESENT; PLATELET GIANT PRESENT; PLATELET LARGE PRESENT; POLYCHROMASIA SLIGHT; SEGMENTED NEUTROPHILS % (MAN) 47 % (42-78); TOTAL CELLS COUNTED 100
[2017-04-24 15:04] LABS: TROPONIN I < 0.012 ng/mL
--- NOTE | 2017-04-24 15:11 | RADIOLOGY REPORT (SQ) ---
EXAM DESCRIPTION: HIP LEFT AP/LATERAL COMPLETED DATE/TIME: 04/24/2017 2:59 pm REASON FOR STUDY: altered, fall COMPARISON: None. NUMBER OF VIEWS: Two views. TECHNIQUE: AP pelvis and additional frog-leg view of the left hip. LIMITATIONS: None. FINDINGS: There is evidence of lumbar spondylosis. Surgical clips in the pelvis are seen. Degenera tive sclerosis of SI joints. Minimal osteophytic change left femoral head. IMPRESSION: Degenerative arthritis left hip. TECHNICAL DOCUMENTATION: JOB ID: [id number] SC-69 2010 [employer]- All Rights Reserved
--- NOTE | 2017-04-24 15:35 | RADIOLOGY REPORT (SQ) ---
EXAM DESCRIPTION: CT HEAD WITHOUT COMPLETED DATE/TIME: 04/24/2017 3:24 pm REASON FOR STUDY: altered, fall COMPARISON: Comparison Most recent CT head 10/11/2016 TECHNIQUE: Axial images acquired through the brain without intravenous contrast. Images reviewed wi th bone, brain and subdural windows. Images stored on PACS. All CT scanners at this facility use dose modulation, iterative reconstruction, and/or weight based d osing when appropriate to reduce radiation dose to as low as reasonably achievable (ALARA). [facility]: Dose Right [facility]: CareDose [facility]: Dose Right [facility]: Teradose 4D [facility]: Smart [employer] RADIATION DOSE: CT Rad equipment meets quality standard of care and radiation dose reduction techniq ues were employed. CTDIvol: 64.6 mGy. DLP: 1034 mGy-cm.mGy. LIMITATIONS: None. FINDINGS: VENTRICLES: Prominent. CEREBRUM: No masses. No hemorrhage. No midline shift. Areas of low density in the white matter mos t likely due to chronic micro-vascular ischemic change. No evidence for acute infarction. CEREBELLUM: No masses. No hemorrhage. No alteration of density. No evidence for acute infarction. EXTRAAXIAL SPACES: Age-related involutional change. No fluid collections. No masses. ORBITS AND GLOBE: No intra- or extraconal masses. Normal contour of globe without masses. CALVARIUM: No fracture. PARANASAL SINUSES: No fluid or mucosal thickening. SOFT TISSUES: No mass or hematoma. OTHER: No other significant finding. IMPRESSION: CHRONIC CHANGES OF ATROPHY AND MICROVASCULAR ISCHEMIA. NO ACUTE PROCESS. EVIDENCE OF ACUTE STROKE: NO. TECHNICAL DOCUMENTATION: JOB ID: [id number] Quality ID # [id number]: Final reports with documentation of one or more dose reduction techniques (e.g., Au tomated exposure control, adjustment of the mA and/or kV according to patient size, use of iterative reconstruction technique) 2010 [employer]- All Rights Reserved
--- NOTE | 2017-04-24 15:38 | RADIOLOGY REPORT (SQ) ---
EXAM DESCRIPTION: CT CERVICAL SPINE WITHOUT COMPLETED DATE/TIME: 04/24/2017 3:24 pm REASON FOR STUDY: altered, fall COMPARISON: 05/22/2016 TECHNIQUE: Axial images acquired through the cervical spine without intravenous contrast. Images re viewed with lung, soft tissue and bone windows. Reconstructed coronal and sagittal MPR images review ed. Images stored on PACS. All CT scanners at this facility use dose modulation, iterative reconstruction, and/or weight based d osing when appropriate to reduce radiation dose to as low as reasonably achievable (ALARA). [facility]: Dose Right [facility]: CareDose [facility]: Dose Right [facility]: Teradose 4D [facility]: Smart [employer] RADIATION DOSE: CT Rad equipment meets quality standard of care and radiation dose reduction techniq ues were employed. CTDIvol: 15.3 mGy. DLP: 293 mGy-cm. mGy. LIMITATIONS: None. FINDINGS: ALIGNMENT: Anatomic. MINERALIZATION: Normal. VERTEBRAL BODIES: No fractures or dislocation. DISCS: Multilevel disc space narrowing with osteophytes. FACETS, LATERAL MASSES, POSTERIOR ELEMENTS: Facet arthropathy. No fractures. No dislocation. No ac nikolai findings. HARDWARE: None in the spine. VISUALIZED RIBS: No fractures. LUNG APICES AND SOFT TISSUES: No significant or acute findings. OTHER: No other significant finding. IMPRESSION: CHRONIC DEGENERATIVE CHANGES. NO ACUTE FINDINGS. TECHNICAL DOCUMENTATION: JOB ID: [id number] Quality ID # [id number]: Final reports with documentation of one or more dose reduction techniques (e.g., Au tomated exposure control, adjustment of the mA and/or kV according to patient size, use of iterative reconstruction technique) 2010 [employer]- All Rights Reserved
--- NOTE | 2017-04-24 15:48 | RADIOLOGY REPORT (SQ) ---
EXAM DESCRIPTION: CT THORACIC SPINE WITHOUT COMPLETED DATE/TIME: 04/24/2017 3:24 pm REASON FOR STUDY: altered, fall COMPARISON: CT abdomen and pelvis 02/11/2016 TECHNIQUE: Axial images acquired through the thoracic spine without intravenous contrast. Images re viewed with lung, soft tissue and bone windows. Reconstructed coronal and sagittal MPR images review ed. Images stored on PACS. All CT scanners at this facility use dose modulation, iterative reconstruction, and/or weight based d osing when appropriate to reduce radiation dose to as low as reasonably achievable (ALARA). [facility]: Dose Right [facility]: CareDose [facility]: Dose Right [facility]: Teradose 4D [facility]: [employer] RADIATION DOSE: CT Rad equipment meets quality standard of care and radiation dose reduction techniq ues were employed. CTDIvol: 94.9 mGy. DLP: 3712 mGy-cm. mGy. LIMITATIONS: None. FINDINGS: VISUALIZED LUNGS: Patchy bibasilar infiltrate/atelectatic change. SOFT TISSUES: No soft tissue swelling. No masses. VERTEBRAL BODIES: No acute compression fractures or dislocation. Old slight compression anterior sup erior aspect L2 stable prior study 2015. DISCS: Arthritic changes noted. ALIGNMENT: Normal. TRANSVERSE PROCESSES, POSTERIOR ELEMENTS: No acute fractures identified. HARDWARE: None in the spine. VISUALIZED RIBS: No fractures. OTHER: Large hiatus hernia. IMPRESSION: Chronic changes thoracic spine. No acute fracture or dislocation. Patchy infiltrate/atelectatic changes lung bases. TECHNICAL DOCUMENTATION: JOB ID: [id number] Quality ID # [id number]: Final reports with documentation of one or more dose reduction techniques (e.g., Au tomated exposure control, adjustment of the mA and/or kV according to patient size, use of iterative reconstruction technique) 2010 [email or web address]- All Rights Reserved
[2017-04-24 16:38] LABS: APPEARANCE,URINE CLEAR; BILIRUBIN,URINE NEGATIVE (NEGATIVE); COLOR,URINE STRAW; GLUCOSE, URINE NEGATIVE (NEGATIVE); KETONES,URINE NEGATIVE (NEGATIVE); LEUKOCYTE ESTERASE,URINE NEGATIVE (NEGATIVE); NITRITE,URINE NEGATIVE (NEGATIVE); PROTEIN,URINE NEGATIVE (NEGATIVE); URINE SPECIFIC GRAVITY 1.005; UROBILINOGEN,URINE NEGATIVE mg/dL (<2.0)
[2017-04-24] MEDS ORDERED: LEVOFLOXACIN 750 MG TABLET PO ONE (16:41)
[2017-04-24 17:07] VITALS: BP 121/89
== END 2017-04-24 17:07 | disposition home or self-care (01) ==
LOC: ER 14:14
DX: J18.1 Lobar pneumonia, unspecified organism (principal); M54.2 Cervicalgia; W01.0XXA Fall on same level from slipping, tripping and stumbling without subsequent striking against object, initial encounter; Y92.488 Other paved roadways as the place of occurrence of the external cause; E78.00 Pure hypercholesterolemia, unspecified; I10 Essential (primary) hypertension; J44.9 Chronic obstructive pulmonary disease, unspecified; Z96.652 Presence of left artificial knee joint; Z85.46 Personal history of malignant neoplasm of prostate
CPT/HCPCS: 99284; 36415; 82553; 82550; 85025; 80053; 81001; 84484; 73502; 70450; 72125; 72128; A9270

== ENCOUNTER 2017-05-18 09:46 | Emergency (ER) | payer MEDICARE, MEDICAID ==
--- NOTE | 2017-05-18 10:15 | ER Document Report ---
ED General - General Mode of Arrival: Medic Information source: Patient, Emergency Med Personnel TRAVEL OUTSIDE OF THE [place] IN LAST 30 DAYS: No <LANDY SALDANA - Last Filed: 05/18/17 15:50> <CAROLINE OCHOA - Last Filed: 05/18/17 15:51> - General Stated Complaint: SYNCOPE Time Seen by Provider: 05/18/17 09:52 Notes: Patient is a 76 year old male with a history of HTN presents to the emergency department complaining due to altered mental status. EMS states a bystander called the ambulance when they noticed the patient slowly lower himself to the ground. EMS states the had a GCS of 10 initially that raised to 12 prior to arrival to the emergency department. They state the patient was not following commands and mumbling while in the ambulance. Patient states he was walking to an office at his apartment complex when he began to get dizzy and sat down. Patient further states he is unsure of what happened. Patient also complains of shoulder and neck pain. At bedside patient is alert and oriented to person and place. EMS states they performed a NIH scale prior to arrival to the emergency department and found it to be normal. Patient states he did not take his HTN medication today or yesterday. (LANDY SALDANA) - Related Data Allergies/Adverse Reactions: No Known Allergies Allergy (Verified 02/16/17 01:01) Past Medical History - General Information source: Patient, Emergency Med Personnel - Social History Smoking Status: Never Smoker Cigarette use (# per day): No Chew tobacco use (# tins/day): No Smoking Education Provided: No Frequency of alcohol use: None - used to drink Family History: Reviewed & Not Pertinent, CAD, Hyperlipidemia, Hypertension - Past Medical History Cardiac Medical History: Reports: Hx Hypercholesterolemia, Hx Hypertension, Hx Heart Murmur - 2012 aortic stenosis with [id number] Pulmonary Medical History: Reports: Hx COPD - 2008 fev1=27%. 2012 bullae Neurological Medical History: Reports: Hx Seizures - until 1990 Malignancy Medical History: Reports Hx Prostate Cancer GI Medical History: Reports: Hx Gastroesophageal Reflux Disease Musculoskeltal Medical History: Reports Hx Arthritis Psychiatric Medical History: Reports: Hx Depression Past Surgical History: Reports: Hx Orthopedic Surgery - L Knee Replacement, Other - 1993 Prostatectomy - Immunizations Immunizations up to date: Yes Hx Diphtheria, Pertussis, Tetanus Vaccination: Yes Hx Pneumococcal Vaccination: 12/18/13 <LANDY SALDANA - Last Filed: 05/18/17 15:50> Review of Systems - Review of Systems Constitutional: No symptoms reported EENT: No symptoms reported Cardiovascular: See HPI, Dizziness Respiratory: No symptoms reported Gastrointestinal: No symptoms reported Genitourinary: No symptoms reported Male Genitourinary: No symptoms reported Musculoskeletal: See HPI Skin: No symptoms reported Hematologic/Lymphatic: No symptoms reported Neurological/Psychological: No symptoms reported -: Yes All other systems reviewed and negative <LANDY SALDANA - Last Filed: 05/18/17 15:50> Physical Exam <LANDY SALDANA - Last Filed: 05/18/17 15:50> <CAROLINE OCHOA - Last Filed: 05/18/17 15:51> - Vital signs Vitals: Pulse Ox 82 L 05/18/17 09:59 Initial pulse ox of 82% is an inaccurate result, when he was switched to a different pulse oximeter he was 98% on room air and stayed above 95% his entire emergency department stay. (CAROLINE OCHOA) - Notes Notes: GENERAL: Alert, interacts well. No acute distress. HEAD: Normocephalic, atraumatic. EYES: Pupils equal, round, and reactive to light. Extraocular movements intact. ENT: Oral mucosa moist, tongue midline. NECK: Full range of motion. Supple. Trachea midline. LUNGS: Clear to auscultation bilaterally, no wheezes, rales, or rhonchi. No respiratory distress. HEART: Regular rate and rhythm. No murmurs, gallops, or rubs. ABDOMEN: Soft, non-tender. Non-distended. Small umbilical hernia,easily reducible and non-tender. Bowel sounds present in all 4 quadrants. EXTREMITIES: Moves all 4 extremities spontaneously. No edema, radial and dorsalis pedis pulses 2/4 bilaterally. No cyanosis. NEUROLOGICAL: Alert and oriented to person and place, not time. Somewhat wandering speech. Biceps and patellar DTRs 2+ bilaterally. PSYCH: Normal affect, normal mood. SKIN: Warm, dry, normal turgor. No rashes or lesions noted. (LANDY SALDANA) Course - Laboratory Result Diagrams: 05/18/17 10:10 05/18/17 10:10 <LANDY SALDANA - Last Filed: 05/18/17 15:50> - Laboratory Result Diagrams: 05/18/17 10:10 05/18/17 10:10 <CAROLINE OCHOA - Last Filed: 05/18/17 15:51> - Re-evaluation Re-evalutation: 05/18/17 14:16 CBC shows mild anemia with hemoglobin 12.8, there is an eosinophilia otherwise unremarkable, CMP shows chronic renal failure with a creatinine 1.60, ammonia undetectable, cardiac enzymes negative 2, urinalysis does not show any signs of dehydration, blood, infection, salicylates, acetaminophen and alcohol are all undetectable, urine drug screen negative. CT scan of the head shows mild chronic changes of atrophy and microvascular ischemia but no acute process. Chest x-ray is unremarkable. When patient arrived he was somewhat confused but his sensorium cleared rapidly , by the time I left the room after his initial exam he was oriented to person place and time. Patient has been rechecked multiple times, he is now oriented, able to recount all the events of the morning to me. Patient was ambulated around the room without difficulty, no evidence of vertigo, no evidence of stroke. Currently I have no explanation for his near syncopal event however he see no evidence of a cardiac etiology or a transient ischemic attack. Patient is instructed to follow Dr. Gross as an outpatient and return for any new or concerning symptoms. (CAROLINE OCHOA) - Vital Signs Vital signs: Temp Pulse Resp BP Pulse Ox 97.7 F 16 145/84 H 95 05/18/17 10:05 05/18/17 15:00 05/18/17 15:00 05/18/17 15:00 - Laboratory Laboratory results interpreted by me: 05/18/17 05/18/17 05/18/17 10:10 10:10 11:10 RBC 4.32 L Hgb 12.8 L RDW 20.7 H Eosinophils % (Manual) 8 H Creatinine 1.60 H Est GFR ( Amer) 51 L Est GFR (Non-Af Amer) 42 L Direct Bilirubin 0.5 H ALT 15 L Ammonia < 8.7 L Urine Protein Urine Urobilinogen Salicylates < 1.0 L Acetaminophen < 10 L 05/18/17 12:30 RBC Hgb RDW Eosinophils % (Manual) Creatinine Est GFR ( Amer) Est GFR (Non-Af Amer) Direct Bilirubin ALT Ammonia Urine Protein 30 H Urine Urobilinogen 2.0 H Salicylates Acetaminophen - EKG Interpretation by Me Additional EKG results interpreted by me: 05/18/17 14:19 EKG shows sinus bradycardia at a rate of 56, left axis deviation, normal intervals, no ST segment elevations or depressions, there is rapid R-wave progression per my interpretation. (CAROLINE OCHOA) Discharge <LANDY SALDANA - Last Filed: 05/18/17 15:50> <CAROLINE OCHOA - Last Filed: 05/18/17 15:51> - Discharge Clinical Impression: Near syncope, Essential hypertension, Chronic kidney disease, stage II (mild) Condition: Stable Disposition: HOME, SELF-CARE Instructions: Near Syncopal Episode ([facility]) Referrals: CLAUDIA GROSS MD [Primary Care Provider] - Follow up in 3-5 days Scribe Attestation: 05/18/17 15:51 I personally performed the services described in the documentation, reviewed and edited the documentation which was dictated to the scribe in my presence, and it accurately records my words and actions. (CAROLINE OCHOA) Scribe Documentation - Scribe Written by Joaquin:: Joaquin Zelaya, 05/18/2017 10:19 acting as scribe for :: Conchita <LANDY ASLDANA - Last Filed: 05/18/17 15:50>
--- NOTE | 2017-05-18 10:43 | RADIOLOGY REPORT (SQ) ---
EXAM DESCRIPTION: CHEST SINGLE VIEW COMPLETED DATE/TIME: 05/18/2017 10:32 am REASON FOR STUDY: presyncope COMPARISON: 02/16/2017. EXAM PARAMETERS: NUMBER OF VIEWS: One view. TECHNIQUE: Single frontal radiographic view of the chest acquired. RADIATION DOSE: NA LIMITATIONS: None. FINDINGS: LUNGS AND PLEURA: No opacities, masses or pneumothorax. No pleural effusion. MEDIASTINUM AND HILAR STRUCTURES: No masses. Contour normal. HEART AND VASCULAR STRUCTURES: Heart normal in size. Normal vasculature. Ectatic aorta. BONES: No acute findings. HARDWARE: None in the chest. OTHER: Hiatal hernia. IMPRESSION: NO ACUTE RADIOGRAPHIC FINDING IN THE CHEST. TECHNICAL DOCUMENTATION: JOB ID: [id number] [employer]- All Rights Reserved Reading location - IP/workstation name: [id number]
[2017-05-18 10:45] LABS: HEMATOCRIT 38.4 % (37.9-51.0); HEMOGLOBIN 12.8 g/dL (13.5-17.0); MEAN CORPUSCULAR HEMOGLOBIN 29.6 pg (27.0-33.4); MEAN CORPUSCULAR HGB CONC 33.3 g/dL (32.0-36.0); MEAN CORPUSCULAR VOLUME 89 fl (80-97); PLATELET COUNT 205 10^3/uL (150-450); RED BLOOD COUNT 4.32 10^6/uL (4.35-5.55); RED CELL DISTRIBUTION WIDTH 20.7 % (11.5-14.0)
[2017-05-18 10:57] LABS: ALANINE AMINOTRANSFERASE 15 U/L (21-72); ALBUMIN 4.2 g/dL (3.5-5.0); ALKALINE PHOSPHATASE 45 U/L (38-126); ANION GAP 8 (5-19); ASPARTATE AMINO TRANSFERASE 23 U/L (17-59); BILIRUBIN,DIRECT 0.5 mg/dL (0.0-0.4); BILIRUBIN,TOTAL 0.8 mg/dL (0.2-1.3); BLOOD UREA NITROGEN 19 mg/dL (7-20); CALCIUM 9.7 mg/dL (8.4-10.2); CARBON DIOXIDE 27 mmol/L (22-30); CHLORIDE 107 mmol/L (98-107); CREATINE KINASE 92 U/L (55-170); GLUCOSE 89 mg/dL (75-110); POTASSIUM 3.8 mmol/L (3.6-5.0); SODIUM 141.8 mmol/L (137-145); TOTAL PROTEIN 7.8 g/dL (6.3-8.2)
[2017-05-18 10:58] LABS: ACETAMINOPHEN < 10 ug/mL (10-30); ALCOHOL < 10 mg/dL (NONE DETECTED); SALICYLATE < 1.0 mg/dL (2.0-20.0)
[2017-05-18 11:00] LABS: CREATINE KINASE MB 0.39 ng/mL (<4.55)
[2017-05-18 11:02] LABS: ABSOLUTE LYMPHOCYTES# (MANUAL) 1.3 10^3/uL (0.5-4.7); ABSOLUTE MONOCYTES # (MANUAL) 0.5 10^3/uL (0.1-1.4); ABSOLUTE NEUTROPHILS# (MANUAL) 1.8 10^3/uL (1.7-8.2); BASOPHILS % (MANUAL) 2 % (0-2); EOSINOPHILS % (MANUAL) 8 % (0-6); LYMPHOCYTES % (MANUAL) 32 % (13-45); MONOCYTES % (MANUAL) 13 % (3-13); SEGMENTED NEUTROPHILS % (MAN) 45 % (42-78); TOTAL CELLS COUNTED 100
[2017-05-18 11:04] LABS: ANISOCYTOSIS 2+; PLATELET COMMENT ADEQUATE; TOXIC GRANULATION 1+
--- NOTE | 2017-05-18 11:04 | RADIOLOGY REPORT (SQ) ---
EXAM DESCRIPTION: CT HEAD WITHOUT COMPLETED DATE/TIME: 05/18/2017 10:45 am REASON FOR STUDY: weakness, presyncope COMPARISON: 04/24/2017. TECHNIQUE: Axial images acquired through the brain without intravenous contrast. Images reviewed wi th bone, brain and subdural windows. Images stored on PACS. All CT scanners at this facility use dose modulation, iterative reconstruction, and/or weight based d osing when appropriate to reduce radiation dose to as low as reasonably achievable (ALARA). [facility]: Dose Right [facility]: CareDose [facility]: Dose Right [facility]: Teradose 4D [facility]: Eloqu[employer] RADIATION DOSE: CT Rad equipment meets quality standard of care and radiation dose reduction techniq ues were employed. CTDIvol: 64.6 mGy. DLP: 1034 mGy-cm. mGy. LIMITATIONS: None. FINDINGS: VENTRICLES: Prominent. CEREBRUM: No masses. No hemorrhage. No midline shift. Areas of low density in the white matter mos t likely due to chronic micro-vascular ischemic change. No evidence for acute infarction. CEREBELLUM: No masses. No hemorrhage. No alteration of density. No evidence for acute infarction. EXTRAAXIAL SPACES: Mild age-related involutional change. No fluid collections. No masses. ORBITS AND GLOBE: No intra- or extraconal masses. Normal contour of globe without masses. CALVARIUM: No fracture. PARANASAL SINUSES: No fluid or mucosal thickening. SOFT TISSUES: No mass or hematoma. OTHER: No other significant finding. IMPRESSION: MILD CHRONIC CHANGES OF ATROPHY AND MICROVASCULAR ISCHEMIA. NO ACUTE PROCESS. EVIDENCE OF ACUTE STROKE: NO. TECHNICAL DOCUMENTATION: JOB ID: [id number] Quality ID # 436: Final reports with documentation of one or more dose reduction techniques (e.g., Au tomated exposure control, adjustment of the mA and/or kV according to patient size, use of iterative reconstruction technique) 2010 [employer]- All Rights Reserved Reading location - IP/workstation name: [id number]
[2017-05-18 11:07] LABS: TROPONIN I < 0.012 ng/mL
[2017-05-18 12:52] LABS: APPEARANCE,URINE CLEAR; BILIRUBIN,URINE NEGATIVE (NEGATIVE); COLOR,URINE YELLOW; GLUCOSE, URINE NEGATIVE (NEGATIVE); KETONES,URINE NEGATIVE (NEGATIVE); LEUKOCYTE ESTERASE,URINE NEGATIVE (NEGATIVE); NITRITE,URINE NEGATIVE (NEGATIVE); PROTEIN,URINE 30 mg/dL (NEGATIVE); URINE SPECIFIC GRAVITY 1.012
[2017-05-18 13:16] LABS: CREATINE KINASE MB 0.53 ng/mL (<4.55)
[2017-05-18 13:19] LABS: TROPONIN I < 0.012 ng/mL
--- NOTE | 2017-05-18 13:58 | EKG REPORT ---
SEVERITY:- NORMAL ECG - SINUS RHYTHM : Confirmed by: Ramy Valenzuela MD 18-May-2017 13:57:21
[2017-05-18 14:03] LABS: URINE AMPHETAMINES SCREEN NEGATIVE; URINE BARBITURATES SCREEN NEGATIVE; URINE BENZODIAZEPINES SCREEN NEGATIVE; URINE COCAINE SCREEN NEGATIVE; URINE MARIJUANA (THC) SCREEN NEGATIVE; URINE METHADONE SCREEN NEGATIVE; URINE PHENCYCLIDINE SCREEN NEGATIVE
[2017-05-18 15:49] VITALS: BP 145/84
== END 2017-05-18 15:45 | disposition home or self-care (01) ==
LOC: ER 09:46
DX: R55 Syncope and collapse (principal); I12.9 Hypertensive chronic kidney disease with stage 1 through stage 4 chronic kidney disease, or unspecified chronic kidney disease; N18.2 Chronic kidney disease, stage 2 (mild); T50.906A Underdosing of unspecified drugs, medicaments and biological substances, initial encounter; Z91.14 Patient's other noncompliance with medication regimen; R41.0 Disorientation, unspecified; D64.9 Anemia, unspecified; D72.1 Eosinophilia; R00.1 Bradycardia, unspecified; J44.9 Chronic obstructive pulmonary disease, unspecified; M54.2 Cervicalgia; M25.519 Pain in unspecified shoulder; Z85.46 Personal history of malignant neoplasm of prostate
CPT/HCPCS: 36415; 70450; 71045; 80053; 80307; 81001; 82140; 82550; 82553; 84484; 85025; 93005; 93010; 99285

== ENCOUNTER 2017-08-29 21:52 | Inpatient (IN) | payer MEDICARE, MEDICAID ==
[2017-08-29] MEDS ORDERED: NORMAL SALINE 1000 ML 1,000 ML IV ONE (22:20)
--- NOTE | 2017-08-29 22:23 | ER Document Report ---
ED General - General Stated Complaint: FALL Time Seen by Provider: 08/29/17 22:00 Notes: Patient is a 77-year-old male who presents with complaint of neck pain and altered mental status. He was found passed out on the floor in his apartment. He lives in what sounds to be an assisted living type complex. Paramedics were called. When they arrived the patient was little bit slow to respond but would answer questions. He said on the way to the hospital is become a little more clear headed. His initial blood pressure here is systolically 78. Paramedics said there were initial blood pressure was little bit low but not as low as it is here. Patient denies any recent fevers or infections. Complains of some neck pain and pain to the back of his head from the fall. He also complains of some left hip pain. He denies chest pain. Denies shortness of breath. He denies abdominal pain. He has no other complaints at this time. TRAVEL OUTSIDE OF THE [place] IN LAST 30 DAYS: No - Related Data Allergies/Adverse Reactions: No Known Allergies Allergy (Verified 02/16/17 01:01) Past Medical History - Social History Smoking Status: Unknown if Ever Smoked Frequency of alcohol use: None Drug Abuse: None Family History: Reviewed & Not Pertinent, CAD, Hyperlipidemia, Hypertension - Past Medical History Cardiac Medical History: Reports: Hx Hypercholesterolemia, Hx Hypertension, Hx Heart Murmur - 2012 aortic stenosis with [id number] Denies: Hx Atrial Fibrillation, Hx Congestive Heart Failure, Hx Heart Attack Pulmonary Medical History: Reports: Hx COPD - 2008 fev1=27%. 2012 bullae Denies: Hx Asthma Neurological Medical History: Reports: Hx Seizures - until 1990 Renal/ Medical History: Denies: Hx Peritoneal Dialysis Malignancy Medical History: Reports Hx Prostate Cancer GI Medical History: Reports: Hx Gastroesophageal Reflux Disease. Denies: Hx Hiatal Hernia, Hx Ulcer Musculoskeltal Medical History: Reports Hx Arthritis Psychiatric Medical History: Reports: Hx Depression Past Surgical History: Reports: Hx Orthopedic Surgery - L Knee Replacement, Other - 1993 Prostatectomy. Denies: Hx Open Heart Surgery - Immunizations Immunizations up to date: Yes Hx Diphtheria, Pertussis, Tetanus Vaccination: Yes Hx Pneumococcal Vaccination: 12/18/13 Review of Systems - Review of Systems Notes: My Normal Review Basic REVIEW OF SYSTEMS: CONSTITUTIONAL : Denies fever, chills, or sweats. Denies recent illness. EENT: Denies eye, ear, throat, or mouth pain or symptoms. Denies nasal or sinus congestion. CARDIOVASCULAR: Denies chest pain. RESPIRATORY: Denies cough, cold, or chest congestion. Denies shortness of breath, difficulty breathing, or wheezing. GASTROINTESTINAL: Denies abdominal pain. Denies nausea, vomiting, or diarrhea. Denies constipation. Last BM: GENITOURINARY: Denies difficulty urinating, painful urination, burning, frequency, or blood in urine. MUSCULOSKELETAL: neck and left hip pain SKIN: Denies rash or skin lesions. NEUROLOGICAL: Denies altered mental status or loss of consciousness. mild headache. Denies weakness or paralysis or loss of use of either side. Denies problems with gait or speech. Denies sensory or motor loss. ALL OTHER SYSTEMS REVIEWED AND NEGATIVE. Physical Exam - Vital signs Vitals: Resp Pulse Ox 14 97 08/29/17 22:09 08/29/17 22:09 - Notes Notes: General Appearance: Well nourished, alert, cooperative, no acute distress, no obvious discomfort. Weak appearing. Vitals: reviewed, See vital signs table. Head: no swelling or tenderness to the head Eyes: PERRL, EOMI, Conjuctiva clear Mouth: No decreasd moisture Throat: No tonsillar inflammation, No airway obstruction Neck: Supple, no neck tenderness Lungs: No wheezing, No rales, No rhonci, No accessory muscle use, good air exchange bilaterally. Heart: Normal rate, Regular rythm, No murmur, no rub Abdomen: Normal BS, soft, No rigidity, No abdominal tenderness, No guarding, no rebound, no abdominal masses Extremities: strength 4/5 in all extremities, good pulses in all extremities, no swelling or tenderness in the extremities, no edema. Skin: warm, dry, appropriate color, no rash Neuro: speech clear, oriented x 3, mild somnolence, responds appropriately to questions. Cranial nerves II through XII are intact. Distal sensation intact. Patient moves all extremities on his own without any focal weakness. Course - Re-evaluation Re-evalutation: 08/30/17 00:21 Patient is received a liter of IV fluid. His blood pressure started to decline again now. I did re-ultrasound his bladder and he still has not made any urine into his bladder. We will give him a second liter fluid. He is still hypotensive after second liter of fluid we will have to start pressors. Patient is still mentating well and answering questions. Patient does admit to me that he has not been drinking much liquids over the last few days. 08/30/17 00:22 08/30/17 01:28 has continued to patient's blood pressure initially was responded to the second bolus but then quickly started to drop again. I therefore is placed central line and will start Levophed. Patient's mental status is continued to decline since he has been here. He never complained of chest pain; however, his mental status declining and he appears to have a widened mediastinum on today's chest x -ray that he did in May and therefore will obtain a CTa of the chest. 08/30/17 02:33 Patient is just received back from CT scan. Mental status continues to decline some. His blood pressure is being supported at levophed. He is about to finish his third liter fluids. He is just now putting out some urine in his Yo catheter. He is only had out approximately 15 mL's of urine. I will give him a 4th Liter as he is still not making hardly any urine. We will reevaluate him again. Some stone remain clear at this time. He now has just very slight upper abdominal tenderness to palpation. The remainder of abdomen is nontender. I will review his scan as soon as images are sent over. I have ordered lactic acid and ammonia level as well. 08/30/17 03:[address] of the chest did not show anything that would be causing the patient' s symptoms at this time. Patient continues to slowly decompensate. He is now on Levophed as well as epinephrine. Is still receiving IV fluids. He has made approximately 20 mL's of urine. We will do a quick CT abdomen pelvis to make sure that were not missing thinks his lactic acid is returned elevated. I have added antibiotics given more broad-spectrum coverage as is still not exactly sure what is causing his symptoms seems could be sepsis. CT scan says that he could possibly have pneumonia but again this is not clear-cut. 08/30/17 03:48 I did contact attempt to contact, Anika Tobias, have contacted patient's demographics. She did not picker and packer the phone. I did leave her message informing her that the patient is very sick and that if there is any family available that they should come to the hospital. 08/30/17 04:39 I did finally get in contact with Mrs. Tobias and informed her of the severity of Mr. King's condition. She said she would come by to see him. Also, patient CT scan of the abdomen pelvis is read as may be some bowel thickening of the ascending colon. Not convinced that this is ischemic as the patient did not initially have abdominal pain until about midway through his stay. His pain is on the right side where the scan is reading that he has some inflammatory changes. I therefore called and spoke with Dr. Uriarte informed him of the situation and the patient's very sick status and the CT scan findings and Dr. Uriarte agrees to come evaluate the patient and reviewed the films to see if he feels that this is potentially ischemic or of another cause. 08/30/17 05:09 Dr. Uriarte has come and evaluate the patient. He did review the CT scan. He does not think this surgical abdomen at this time. I agree with assessment that the patient does not have a lot of pain on his abdominal exam. He thinks most likely the bowel wall thickening on this scan is infectious type process. I have covered with broad-spectrum antibiotics. I did call and speak with Dr. Gross, patient's primary care physician, who informed him of the patient's declining status and the fact that his blood pressure continues to decline despite being on 2 different pressors. I informed her that I feel patient needs ICU care. Dr. Gross agrees and agrees to admit the patient. Unfortunately, I still do not know the exact cause of exactly what is causing the patient's decompensation. His troponin and EKG are normal. His lung stone have remained clear. CT scan again shows possible pneumonia. This could be sepsis related to possible pneumonia or infection of the bowel. He is on broad-spectrum antibiotics. He still is not making much urine. Even though his inital creatinine was 1.69 I suspect that he is going into acute renal failure being that he is not making much urine. We will continue to give IV fluids keep him on the pressors and will admit him to ICU as discussed with Dr. Gross. Dictation of this chart was performed using voice recognition software; therefore, there may be some unintended grammatical errors. - Vital Signs Vital signs: Temp Pulse Resp BP Pulse Ox 95.2 F L 19 90/59 L 95 08/30/17 04:32 08/30/17 04:32 08/30/17 04:32 08/30/17 04:32 - Laboratory Result Diagrams: 08/29/17 21:42 08/29/17 21:42 Laboratory results interpreted by me: 08/29/17 08/29/17 08/30/17 21:42 21:42 02:56 RBC 4.22 L Hgb 12.5 L Hct 37.7 L RDW 19.9 H Seg Neutrophils % 26.4 L Monocytes % 15.6 H Eosinophils % 11.2 H Basophils % 3.9 H Absolute Neutrophils 1.6 L Absolute Eosinophils 0.7 H Creatinine 1.69 H Est GFR ( Amer) 48 L Est GFR (Non-Af Amer) 40 L Lactic Acid 4.1 H ALT 16 L Ammonia Urine Protein Urine Glucose (UA) Urine Blood Urine Bilirubin Urine Urobilinogen 08/30/17 08/30/17 02:56 03:13 RBC Hgb Hct RDW Seg Neutrophils % Monocytes % Eosinophils % Basophils % Absolute Neutrophils Absolute Eosinophils Creatinine Est GFR ( Amer) Est GFR (Non-Af Amer) Lactic Acid ALT Ammonia < 8.7 L Urine Protein >=500 H Urine Glucose (UA) 50 H Urine Blood LARGE H Urine Bilirubin MODERATE H Urine Urobilinogen 2.0 H - EKG Interpretation by Me Additional EKG results interpreted by me: 08/29/17 22:22 EKG is reviewed and interpreted by me. EKG shows sinus rhythm with a rate of [address] segment elevation or depression. MS interval, QRS duration, QTc intervals are within normal range. No concerning changes comparison to old EKG from May 18, 2017. Critical Care Note - Critical Care Note Total time excluding time spent on procedures (mins): 90 Comments: Critical care time for this patient not including time spent on procedures approximately 90 minutes due to frequent re-evaluations, management of hypo- tension, discussion with specialist and admitting physician. Discharge - Discharge Referrals: CLAUDIA GROSS MD [Primary Care Provider] - Follow up as needed
[2017-08-29 22:33] LABS: ABSOLUTE BASOPHILS # (AUTO) 0.2 10^3/uL (0.0-0.2); ABSOLUTE EOSINOPHILS # (AUTO) 0.7 10^3/uL (0.0-0.6); ABSOLUTE LYMPHOCYTES (AUTO) 2.6 10^3/uL (0.5-4.7); ABSOLUTE MONOCYTES (AUTO) 0.9 10^3/uL (0.1-1.4); ABSOLUTE NEUT (AUTO) 1.6 10^3/uL (1.7-8.2); BASOPHILS % (AUTO) 3.9 % (0-2); EOSINOPHILS % (AUTO) 11.2 % (0-6); HEMATOCRIT 37.7 % (37.9-51.0); HEMOGLOBIN 12.5 g/dL (13.5-17.0); LYMPHOCYTES % (AUTO) 42.9 % (13-45); MEAN CORPUSCULAR HEMOGLOBIN 29.6 pg (27.0-33.4); MEAN CORPUSCULAR HGB CONC 33.2 g/dL (32.0-36.0); MEAN CORPUSCULAR VOLUME 89 fl (80-97); MONOCYTES % (AUTO) 15.6 % (3-13); PLATELET COUNT 225 10^3/uL (150-450); RED BLOOD COUNT 4.22 10^6/uL (4.35-5.55); RED CELL DISTRIBUTION WIDTH 19.9 % (11.5-14.0); SEGMENTED NEUTROPHILS % (AUTO) 26.4 % (42-78); TOTAL CELLS COUNTED % (AUTO) 100 %
--- NOTE | 2017-08-29 22:47 | RADIOLOGY REPORT (SQ) ---
EXAM DESCRIPTION: CT HEAD WITHOUT IV CONTRAST COMPLETED DATE/TME: 08/29/2017 22:20 CLINICAL HISTORY: 77 years, Male, trauma COMPARISON: 05/18/2017. TECHNIQUE: 188 Images stored on PACS. All CT scanners at this facility use dose modulation, iterative reconstruction, and/or weight based dosing when appropriate to reduce radiation dose to as low as reasonably achievable (ALARA). [facility]: Dose Right [facility]: CareDose [facility]: Dose Right [facility]: Teradose 4D [facility]: [employer] LIMITATIONS: None. FINDINGS: There is moderate atrophy with moderate periventricular white matter disease and microvascular ischemic changes. Calcification in the distal carotid and vertebral arteries. No evidence of midline shift or mass effect. No acute intracranial hemorrhage is noted. IMPRESSION: No evidence of acute process Atrophy with periventricular white matter disease and microvascular ischemic changes TECHNICAL DOCUMENTATION: Quality ID # 436: Final reports with documentation of one or more dose reduction techniques (e.g., Automated exposure control, adjustment of the mA and/or kV according to patient size, use of iterative reconstruction technique) 2010 [employer]- All Rights Reserved
[2017-08-29 22:48] LABS: ALANINE AMINOTRANSFERASE 16 U/L (21-72); ALBUMIN 4.5 g/dL (3.5-5.0); ALKALINE PHOSPHATASE 47 U/L (38-126); ANION GAP 11 (5-19); ASPARTATE AMINO TRANSFERASE 22 U/L (17-59); BILIRUBIN,DIRECT 0.4 mg/dL (0.0-0.4); BILIRUBIN,TOTAL 0.7 mg/dL (0.2-1.3); BLOOD UREA NITROGEN 18 mg/dL (7-20); CALCIUM 9.6 mg/dL (8.4-10.2); CARBON DIOXIDE 27 mmol/L (22-30); CHLORIDE 103 mmol/L (98-107); GLUCOSE 93 mg/dL (75-110); POTASSIUM 4.1 mmol/L (3.6-5.0); SODIUM 141.4 mmol/L (137-145); TOTAL PROTEIN 8.1 g/dL (6.3-8.2)
--- NOTE | 2017-08-29 22:48 | RADIOLOGY REPORT (SQ) ---
EXAM DESCRIPTION: CT CERVICAL SPINE WITHOUT IV CONTRAST COMPLETED DATE/TME: 08/29/2017 22:20 EXAM DESCRIPTION: CLINICAL HISTORY: trauma COMPARISON: None Available TECHNIQUE: Contiguous axial images of the cervical spine were obtained without the administration of intravenous contrast followed by reconstruction images. This exam was performed according to our departmental dose-optimization program, which includes automated exposure control, adjustment of the mA and/or kV according to patient size and/or use of iterative reconstruction technique. FINDINGS: There are degenerative changes. There is no acute fracture or subluxation. Prevertebral soft tissues are within normal limits. IMPRESSION: No acute fracture or subluxation
[2017-08-29 22:58] LABS: ANISOCYTOSIS 2+; PLATELET COMMENT ADEQUATE; POIKILOCYTOSIS SLIGHT; TOXIC GRANULATION SLIGHT
--- NOTE | 2017-08-29 23:06 | RADIOLOGY REPORT (SQ) ---
EXAM DESCRIPTION: XR CHEST 1 VIEW COMPLETED DATE/TME: 08/29/2017 22:20 EXAM DESCRIPTION: CLINICAL HISTORY: trauma COMPARISON: 05/18/2017 FINDINGS: Single view of the chest is submitted. There is nonspecific superior mediastinal widening. Cardiac silhouette is normal. There is atelectasis at the left lung base, with a small region of consolidation. No focal parenchymal or pleural disease. No acute bony abnormality. There is bilateral pulmonary vascular engorgement. IMPRESSION: Left lung consolidation. Nonspecific superior mediastinal widening.
--- NOTE | 2017-08-29 23:09 | RADIOLOGY REPORT (SQ) ---
EXAM DESCRIPTION: XR HIP 2 OR MORE VIEWS COMPLETED DATE/TME: 08/29/2017 22:20 EXAM DESCRIPTION: CLINICAL HISTORY: trauma COMPARISON: None FINDINGS: One view(s) submitted. No fracture or dislocation is identified. Bone marrow attenuation is unremarkable. No radiopaque foreign body is identified. IMPRESSION: No acute fracture or dislocation.
--- NOTE | 2017-08-29 23:10 | RADIOLOGY REPORT (SQ) ---
EXAM DESCRIPTION: XR KNEE 4 OR MORE VIEWS COMPLETED DATE/TME: 08/29/2017 22:20 EXAM DESCRIPTION: CLINICAL HISTORY: trauma COMPARISON: None FINDINGS: 4 view(s) submitted. No fracture or dislocation is identified. Bone marrow attenuation is unremarkable. Prosthetic knee appears intact with no acute failure or loosening. There are degenerative changes. IMPRESSION: No acute fracture or dislocation.
--- NOTE | 2017-08-29 23:12 | RADIOLOGY REPORT (SQ) ---
EXAM DESCRIPTION: XR THORACIC SPINE 2 VIEWS COMPLETED DATE/TME: 08/29/2017 22:21 CLINICAL HISTORY: 77 years, Male, trauma COMPARISON: None. NUMBER OF VIEWS: Two views TECHNIQUE: AP and lateral views of the thoracic spine were provided. LIMITATIONS: None. FINDINGS: Multilevel degenerative change with small marginal osteophytes. The superior aspect of the spine is suboptimally seen on lateral projection. No acute fracture noted. IMPRESSION: Degenerative change without definite fracture noted Widened mediastinum as noted on previous chest x-rays likely secondary to ectatic vascular structures 2010 [employer]- All Rights Reserved
[2017-08-29 23:37] LABS: VENOUS BLOOD BASE EXCESS -1.3 mmol/L; VENOUS BLOOD HCO3 23.6 mmol/L (20-32); VENOUS BLOOD PCO2 40.4 mmHg (35-63); VENOUS BLOOD PH 7.38 (7.30-7.42)
[2017-08-29] MEDS ORDERED: LEVOFLOXACIN 750 MG/D5W RTU 750 MG/150 ML RTUPB IV ONE (23:39)
[2017-08-30] MEDS ORDERED: NORMAL SALINE 1000 ML 1,000 ML IV ONE (00:53)
[2017-08-30] MEDS ORDERED: NOREPINEPHRINE BITARTRATE INJ/PF 4 MG/4 ML SDV IV ONE ×2 (01:25→05:42)
[2017-08-30] MEDS: DEXTROSE 5%-WATER 250 ML with NOREPINEPHRINE BITARTRATE 4 MG IV PRN ×10 (01:36→22:18)
[2017-08-30] MEDS ORDERED: RINGERS SOLUTION,LACTATED 1,000 ML IV ONE ×3 (01:47→04:20)
--- NOTE | 2017-08-30 01:58 | RADIOLOGY REPORT (SQ) ---
EXAM DESCRIPTION: XR CHEST 1 VIEW COMPLETED DATE/TME: 08/30/2017 01:24 CLINICAL HISTORY: post line placement COMPARISON: 08/29/2017 FINDINGS: Single frontal view of the chest. Tortuosity of thoracic aorta. Heart is not enlarged. No pneumothorax or definite pleural effusion. Streaky bibasilar opacities likely related to atelectasis. Left retrocardiac opacities are stable. Right sided central venous catheter overlying the expected region of the distal right SVC. No acute osseous abnormalities. Upper abdominal soft tissues are unremarkable. IMPRESSION: 1. Right-sided central venous catheter with tip overlying the expected region of the distal SVC. Otherwise stable appearance of the chest.
--- NOTE | 2017-08-30 02:53 | RADIOLOGY REPORT (SQ) ---
EXAM DESCRIPTION: CT CHEST ANGIOGRAPHY WITHOUT THEN WITH IV CONTRAST COMPLETED DATE/TME: 08/30/2017 01:27 CLINICAL HISTORY: widened mediastinum on cxr COMPARISON: 04/24/2017 TECHNIQUE: CTA of the chest obtained following the uncomplicated intravenous administration of 98 mL Isovue-300. 3-D/MIP reformatted images of the chest available for evaluation. DLP: 409.64 mGycm FINDINGS: Chest: Pulmonary arteries: Contrast bolus is adequate.No filling defects identified in the pulmonary arteries to suggest pulmonary embolus. Thyroid:No abnormalities of the visualized thyroid. Great Vessels:Great vessels have normal anatomic configuration. Thoracic Aorta: Atherosclerotic calcification and tortuosity of the thoracic aorta. Heart: Coronary artery atherosclerosis. No significant pericardial effusion or cardiomegaly. Lymph Nodes:No enlarged mediastinal lymph nodes identified. Esophagus: Large hiatal hernia with fluid-filled esophagus. Other:No additional findings. Lungs: Paraseptal emphysematous changes. Bibasilar scarring and chronic appearing interstitial thickening. Mild peripheral likely traction bronchiectasis. There is a 0.5 cm indeterminate solid nodule in the right lung base. Pleura:No pleural effusion or pneumothorax. Trachea/Airways: No acute abnormalities of the trachea. Bones:No destructive osseous lesions. Degenerative change of the spine. Upper Abdomen:Limited images of the upper abdomen demonstrate no definite abnormalities of visualized portions of the liver, gallbladder, pancreas, spleen, adrenal glands, or kidneys. IMPRESSION: 1. No pulmonary embolus identified. 2. Tortuosity of the thoracic aorta without evidence of dissection or aneurysm. 3. Chronic interstitial lung disease predominantly involving the lung bases with paraseptal emphysematous change. A component of superimposed acute pneumonic or increased atelectasis process particularly in the right lung base cannot be excluded due to increase in opacity from comparison study. 4. Coronary artery atherosclerosis. 5. Large hiatal hernia. 6. There is a 0.5 cm indeterminate pulmonary nodule involving the right lung base. By Fleischner Society guidelines if the patient is at high risk for lung cancer, follow-up CT of the chest in 12 months is recommended. This exam was performed according to our departmental dose-optimization program, which includes automated exposure control, adjustment of the mA and/or kV according to patient size and/or use of iterative reconstruction technique.
[2017-08-30] MEDS ORDERED: EPINEPHRINE INJ/PF 1 MG/1 ML AMPULE ONE ×4 (03:17→10:07)
[2017-08-30] MEDS: DEXTROSE 5%-WATER 250 ML with EPINEPHRINE/PF 1 MG IV PRN ×6 (03:24→12:50)
[2017-08-30] MEDS ORDERED: PIPERACILLIN/TAZOBACTAM 4.5 GM VIAL IV ONE (03:31)
[2017-08-30] MEDS ORDERED: VANCOMYCIN HCL INJ 1000 MG VIAL IV ONE (03:32)
[2017-08-30 04:12] LABS: APPEARANCE,URINE CLOUDY; BILIRUBIN,URINE MODERATE (NEGATIVE); COLOR,URINE DARK YELLOW; GLUCOSE, URINE 50 mg/dL (NEGATIVE); KETONES,URINE NEGATIVE (NEGATIVE); URINE SPECIFIC GRAVITY 1.026
[2017-08-30 04:13] LABS: LEUKOCYTE ESTERASE,URINE NEGATIVE (NEGATIVE); NITRITE,URINE NEGATIVE (NEGATIVE); PROTEIN,URINE >=500 mg/dL (NEGATIVE)
[2017-08-30 04:16] LABS: CALCIUM OXALATE CRYSTALS,URINE RARE /HPF
--- NOTE | 2017-08-30 04:23 | RADIOLOGY REPORT (SQ) ---
EXAM DESCRIPTION: CT ABDOMEN PELVIS WITHOUT IV CONTRAST COMPLETED DATE/TME: 08/30/2017 03:42 CLINICAL HISTORY: hypotension, elevated lactic acid COMPARISON: 10/12/2015 TECHNIQUE: CT of the abdomen and pelvis without IV contrast. Evaluation of the solid organs and vasculature is suboptimal due to lack of IV contrast. DLP: 787.60 mGy-cm FINDINGS: Lung Bases: Chronic interstitial and emphysematous changes as detailed from CT of the chest performed same day. Bones: Degenerative spondylosis of the spine and sacroiliac joints. Degenerative change of the hips. Abdomen: Liver: The liver has normal size and density. Gallbladder: Minimal layering hyperdensity in the gallbladder. Spleen, Pancreas, and Adrenal Glands: The spleen, pancreas, and adrenal glands are unremarkable. Kidneys: Retained iodinated contrast identified in the renal collecting system. Bosniak class I right renal cysts. No evidence of hydronephrosis. Vasculature: Aortoiliac atherosclerosis. IVC is unremarkable. Stomach: Large hiatal hernia. Other: No free intraperitoneal air. No free fluid or lymphadenopathy. Pelvis: Bladder: Yo catheter in the urinary bladder. Bowel: Scattered diverticula of the colon. Mild wall thickening of the ascending colon. No dilated loops of large or small bowel identified. Appendix: Normal appendix. Pelvis: Prostate is not enlarged. IMPRESSION: 1. Mild wall thickening of the ascending colon. This could be related to under distention however colitis of infectious or inflammatory etiology could produce a similar appearance. 2. Retained contrast in the renal collecting system. This could indicate a component of renal failure. 3. Diverticulosis without evidence of acute diverticulitis. 4. Possible cholelithiasis without evidence of acute cholecystitis. 5. Large hiatal hernia. This exam was performed according to our departmental dose-optimization program, which includes automated exposure control, adjustment of the mA and/or kV according to patient size and/or use of iterative reconstruction technique.
[2017-08-30] MEDS ORDERED: SODIUM BICARBONATE 8.4% INJ 50 MEQ/50 ML DISP.SYRIN IV ONE (05:15)
--- NOTE | 2017-08-30 05:31 | PDOC CONSULTATION ---
History of Present Illness Admission Date/PCP: CLAUDIA ALVES MD Patient complains of: abdominal pains History of Present Illness: NELIDA MARTEL is a 77 year old male who was noted on the floor of an assisted living. C/O neck pains and slow to respond per paramedics. Was then worked up with CT scans of chest/abd/pelvis. Patient started c/o abdominal pains in the middle of work up. No previous c/o abdominal pains. WBC has been normal. Patient's mental status decreasing and now on pressors with low Urine output. Elevated lactic acid and now with increasing creatinine. Past Medical History Cardiac Medical History: Reports: Hyperlipidema, Hypertension, Heart Murmur - 2012 aortic stenosis with [id number] Denies: Atrial Fibrillation, Congestive Heart Failure, Myocardial Infarction Pulmonary Medical History: Reports: Chronic Obstructive Pulmonary Disease (COPD ) - 2008 fev1=27%. 2012 bullae Denies: Asthma Neurological Medical History: Reports: Seizures - until 1990 GI Medical History: Reports: Gastroesophageal Reflux Disease Denies: Hiatal Hernia Musculoskeltal Medical History: Reports: Arthritis Psychiatric Medical History: Reports: Depression Hematology: Reports: Anemia - 2001 anemic chronic disease with [id number] Denies: Sickle Cell Disease Past Surgical History Past Surgical History: Reports: Orthopedic Surgery - L Knee Replacement, Other - 1993 Prostatectomy Social History Smoking Status: Unknown if Ever Smoked Frequency of Alcohol Use: None Hx Recreational Drug Use: No Drugs: None Hx Prescription Drug Abuse: No Family History Family History: Reviewed & Not Pertinent, CAD, Hyperlipidemia, Hypertension Parental Family History Reviewed: No Children Family History Reviewed: No Sibling(s) Family History Reviewed.: No Medication/Allergy Home Medications: Amlodipine Besylate 10 mg PO DAILY 06/06/16 Cyanocobalamin (Vitamin B-12) [Vitamin B-12 1000 mcg Tablet] 1 tab PO DAILY 05/20 Gabapentin [Neurontin 100 mg Capsule] 100 mg PO TID 06/06/16 Pantoprazole Sodium 40 mg PO DAILY 06/06/16 Sucralfate [Carafate] 1 gm PO QID PRN #420 ml 02/16/17 Levofloxacin [Levaquin 750 mg Tablet] 750 mg PO DAILY #4 tablet 04/24/17 Allergies/Adverse Reactions: No Known Allergies Allergy (Verified 02/16/17 01:01) Review of Systems ROS unobtainable: Due to mental status - Unresponsive. Unable to obtain ROS Physical Exam Vital Signs: Temp Pulse Resp BP Pulse Ox 95.2 F L 19 90/59 L 95 08/30/17 04:32 08/30/17 04:32 08/30/17 04:32 08/30/17 04:32 Intake & Output 08/28/17 08/29/17 08/30/17 06:59 06:59 06:59 Weight 67.4 kg Exam: Patient is unresponsive. Pulses: PRESENT: other - palpable right femoral pulse. Unable to palpate left femoral pulse but left leg cool but viable GI/Abdominal exam: PRESENT: soft - No apparent tenderness. No mass palpated Rectal exam: PRESENT: deferred Neurological exam: PRESENT: other - unresponsive Skin exam: PRESENT: normal color, warm Results Laboratory Results: 08/29/17 21:42 08/29/17 21:42 08/29/17 08/29/17 08/29/17 21:42 21:42 23:20 WBC 6.0 RBC 4.22 L Hgb 12.5 L Hct 37.7 L MCV 89 MCH 29.6 MCHC 33.2 RDW 19.9 H Plt Count 225 Seg Neutrophils % 26.4 L Lymphocytes % 42.9 Monocytes % 15.6 H Eosinophils % 11.2 H Basophils % 3.9 H Absolute Neutrophils 1.6 L Absolute Lymphocytes 2.6 Absolute Monocytes 0.9 Absolute Eosinophils 0.7 H Absolute Basophils 0.2 VBG pH 7.38 VBG pCO2 40.4 VBG HCO3 23.6 VBG Base Excess -1.3 Sodium 141.4 Potassium 4.1 Chloride 103 Carbon Dioxide 27 Anion Gap 11 BUN 18 Creatinine 1.69 H Est GFR ( Amer) 48 L Est GFR (Non-Af Amer) 40 L Glucose 93 Lactic Acid Calcium 9.6 Total Bilirubin 0.7 AST 22 ALT 16 L Alkaline Phosphatase 47 Ammonia Total Protein 8.1 Albumin 4.5 Urine Color Urine Appearance Urine pH Ur Specific [place] Urine Protein Urine Glucose (UA) Urine Ketones Urine Blood Urine Nitrite Ur Leukocyte Esterase Urine RBC (Auto) 08/30/17 08/30/17 08/30/17 02:56 02:56 03:13 WBC RBC Hgb Hct MCV MCH MCHC RDW Plt Count Seg Neutrophils % Lymphocytes % Monocytes % Eosinophils % Basophils % Absolute Neutrophils Absolute Lymphocytes Absolute Monocytes Absolute Eosinophils Absolute Basophils VBG pH VBG pCO2 VBG HCO3 VBG Base Excess Sodium Potassium Chloride Carbon Dioxide Anion Gap BUN Creatinine Est GFR ( Amer) Est GFR (Non-Af Amer) Glucose Lactic Acid 4.1 H Calcium Total Bilirubin AST ALT Alkaline Phosphatase Ammonia < 8.7 L Total Protein Albumin Urine Color DARK YELLOW Urine Appearance CLOUDY Urine pH 6.0 Ur Specific [place] 1.026 Urine Protein >=500 H Urine Glucose (UA) 50 H Urine Ketones NEGATIVE Urine Blood LARGE H Urine Nitrite NEGATIVE Ur Leukocyte Esterase NEGATIVE Urine RBC (Auto) 3 08/29/17 21:42 Troponin I < 0.012 Impressions: Cervical Spine CT 08/29/17 22:20 IMPRESSION: No acute fracture or subluxation Head CT 08/29/17 22:20 IMPRESSION: No evidence of acute process Atrophy with periventricular white matter disease and microvascular ischemic changes TECHNICAL DOCUMENTATION: Quality ID # [id number]: Final reports with documentation of one or more dose reduction techniques (e.g., Automated exposure control, adjustment of the mA and/or kV according to patient size, use of iterative reconstruction technique) 2010 [employer]- All Rights Reserved Hip X-Ray 08/29/17 22:20 IMPRESSION: No acute fracture or dislocation. Knee X-Ray 08/29/17 22:20 IMPRESSION: No acute fracture or dislocation. Thoracic Spine X-Ray 08/29/17 22:21 IMPRESSION: Degenerative change without definite fracture noted Widened mediastinum as noted on previous chest x-rays likely secondary to ectatic vascular structures 2010 [employer]- All Rights Reserved Chest X-Ray 08/30/17 01:24 IMPRESSION: 1. Right-sided central venous catheter with tip overlying the expected region of the distal SVC. Otherwise stable appearance of the chest. Chest/Abdomen CTA 08/30/17 01:27 IMPRESSION: 1. No pulmonary embolus identified. 2. Tortuosity of the thoracic aorta without evidence of dissection or aneurysm. 3. Chronic interstitial lung disease predominantly involving the lung bases with paraseptal emphysematous change. A component of superimposed acute pneumonic or increased atelectasis process particularly in the right lung base cannot be excluded due to increase in opacity from comparison study. 4. Coronary artery atherosclerosis. 5. Large hiatal hernia. 6. There is a 0.5 cm indeterminate pulmonary nodule involving the right lung base. By Fleischner Society guidelines if the patient is at high risk for lung cancer, follow-up CT of the chest in 12 months is recommended. This exam was performed according to our departmental dose-optimization program, which includes automated exposure control, adjustment of the mA and/or kV according to patient size and/or use of iterative reconstruction technique. Abdomen/Pelvis CT 08/30/17 03:42 IMPRESSION: 1. Mild wall thickening of the ascending colon. This could be related to under distention however colitis of infectious or inflammatory etiology could produce a similar appearance. 2. Retained contrast in the renal collecting system. This could indicate a component of renal failure. 3. Diverticulosis without evidence of acute diverticulitis. 4. Possible cholelithiasis without evidence of acute cholecystitis. 5. Large hiatal hernia. This exam was performed according to our departmental dose-optimization program, which includes automated exposure control, adjustment of the mA and/or kV according to patient size and/or use of iterative reconstruction technique. Assessment & Plan - Diagnosis (1) Colitis presumed infectious Is this a current diagnosis for this admission?: Yes - Time Time Spent: 30 to 50 Minutes - Plan Summary Plan Summary: Impression is Colitis -inflammatory vs infectious. Doubt Ischemic. No surgical abdomen at this time. Continue supportive measures.
[2017-08-30] MEDS ORDERED: DEXTROSE 5%-NORMAL SALINE 1,000 ML IV PRN (05:57)
[2017-08-30] MEDS ORDERED: GLUCAGON,HUMAN RECOMB 1 MG INJ SUBCUT PRN (05:57)
[2017-08-30] MEDS ORDERED: LANSOPRAZOLE 30 MG TAB.RAP.DR PO SCH (06:00)
[2017-08-30] MEDS ORDERED: DEXTROSE 50%-WATER 25 GM/50 ML DISP.SYRIN IV PRN ×2 (07:54)
[2017-08-30] MEDS ORDERED: INSULIN REG, HUMAN 100 UNIT/ML 3 ML VIAL (PYX) SUBCUT PRN (07:54)
[2017-08-30] MEDS ORDERED: DEXTROSE 40% GEL 15 GM TUBE PO PRN ×2 (07:54)
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
[2017-08-30] MEDS ORDERED: ACETAMINOPHEN 325 MG TABLET PO PRN (09:59)
[2017-08-30 11:17] LABS: ARTERIAL BLOOD BASE EXCESS -11.9 mmol/L; ARTERIAL BLOOD H2CO3 0.93 mmol/L (1.05-1.35); ARTERIAL BLOOD HCO3 13.8 mmol/L (20-26); ARTERIAL BLOOD O2 SATURATION 89.6 % (94-98); ARTERIAL BLOOD PCO2 30.9 mmHg (35-45); ARTERIAL BLOOD PH 7.27 (7.35-7.45); ARTERIAL BLOOD PO2 63.4 mmHg (80-100); ARTERIAL BLOOD TOTAL CO2 14.8 mmol/L (23-27)
[2017-08-30 11:18] LABS: ARTERIAL BLOOD FIO2 10%
[2017-08-30] MEDS ORDERED: PHENYLEPHRINE HCL INJ/PF 10 MG/1 ML SDV ONE (11:19)
[2017-08-30 11:59] LABS: APPEARANCE,URINE SLIGHTLY-CLOUDY; BILIRUBIN,URINE NEGATIVE (NEGATIVE); COLOR,URINE YELLOW; GLUCOSE, URINE 50 mg/dL (NEGATIVE); KETONES,URINE TRACE mg/dL (NEGATIVE); LEUKOCYTE ESTERASE,URINE NEGATIVE (NEGATIVE); NITRITE,URINE NEGATIVE (NEGATIVE); PROTEIN,URINE 30 mg/dL (NEGATIVE); URINE SPECIFIC GRAVITY > 1.060; UROBILINOGEN,URINE NEGATIVE mg/dL (<2.0)
[2017-08-30] MEDS ORDERED: DEXTROSE 5%-WATER 250 ML with VASOPRESSIN 100 UNIT IV PRN ×2 (12:41)
[2017-08-30] MEDS ORDERED: DEXTROSE 5%-WATER 250 ML with PHENYLEPHRINE HCL 40 MG IV PRN ×2 (12:41)
[2017-08-30] MEDS: CEFTRIAXONE 1 GM/D5W RTU 1 GM/50 ML RTUPB IV SCH (12:51)
[2017-08-30] MEDS: ENOXAPARIN SODIUM INJ 30 MG/0.3 ML DISP.SYRIN SUBCUT SCH (12:52)
[2017-08-30 13:31] LABS: HEMATOCRIT 28.7 % (37.9-51.0); MEAN CORPUSCULAR HEMOGLOBIN 30.1 pg (27.0-33.4); MEAN CORPUSCULAR HGB CONC 33.6 g/dL (32.0-36.0); MEAN CORPUSCULAR VOLUME 90 fl (80-97); PLATELET COUNT 215 10^3/uL (150-450); RED BLOOD COUNT 3.21 10^6/uL (4.35-5.55); RED CELL DISTRIBUTION WIDTH 20.8 % (11.5-14.0); WHITE BLOOD COUNT 10.4 10^3/uL (4.0-10.5)
[2017-08-30 13:47] LABS: ALANINE AMINOTRANSFERASE 16 U/L (21-72); ALBUMIN 3.4 g/dL (3.5-5.0); ALKALINE PHOSPHATASE 31 U/L (38-126); ASPARTATE AMINO TRANSFERASE 20 U/L (17-59); BILIRUBIN,DIRECT 0.3 mg/dL (0.0-0.4); BILIRUBIN,TOTAL 0.6 mg/dL (0.2-1.3); BLOOD UREA NITROGEN 24 mg/dL (7-20); CALCIUM 7.5 mg/dL (8.4-10.2); CHLORIDE 100 mmol/L (98-107); POTASSIUM 3.7 mmol/L (3.6-5.0); SODIUM 131.4 mmol/L (137-145); TOTAL PROTEIN 6.2 g/dL (6.3-8.2)
[2017-08-30 13:57] LABS: ANION GAP 15 (5-19)
[2017-08-30 14:05] LABS: CARBON DIOXIDE 16 mmol/L (22-30); GLUCOSE 406 mg/dL (75-110)
[2017-08-30 14:10] LABS: HEMOGLOBIN 9.7 g/dL (13.5-17.0)
[2017-08-30 14:13] LABS: ARTERIAL BLOOD BASE EXCESS -8.2 mmol/L; ARTERIAL BLOOD H2CO3 0.98 mmol/L (1.05-1.35); ARTERIAL BLOOD HCO3 16.7 mmol/L (20-26); ARTERIAL BLOOD O2 SATURATION 88.4 % (94-98); ARTERIAL BLOOD PCO2 32.4 mmHg (35-45); ARTERIAL BLOOD PH 7.33 (7.35-7.45); ARTERIAL BLOOD PO2 57.4 mmHg (80-100); ARTERIAL BLOOD TOTAL CO2 17.7 mmol/L (23-27)
[2017-08-30 14:15] LABS: ABSOLUTE LYMPHOCYTES# (MANUAL) 0.8 10^3/uL (0.5-4.7); ABSOLUTE MONOCYTES # (MANUAL) 1.1 10^3/uL (0.1-1.4); ABSOLUTE NEUTROPHILS# (MANUAL) 8.4 10^3/uL (1.7-8.2); BAND NEUTROPHILS % (MANUAL) 1 % (3-5); BASOPHILS % (MANUAL) 0 % (0-2); EOSINOPHILS % (MANUAL) 0 % (0-6); LYMPHOCYTES % (MANUAL) 8 % (13-45); METAMYELOCYTES % (MANUAL) 1 % (0); MONOCYTES % (MANUAL) 11 % (3-13); NUCLEATED RED BLOOD CELLS 2 /100 WBC (0); SEGMENTED NEUTROPHILS % (MAN) 78 % (42-78); TOTAL CELLS COUNTED 100
[2017-08-30 14:16] LABS: MYELOCYTES % (MANUAL) 1 % (0)
[2017-08-30 14:17] LABS: ANISOCYTOSIS 2+; HYPOCHROMASIA SLIGHT; OVALOCYTES SLIGHT; PLATELET COMMENT ADEQUATE; POIKILOCYTOSIS 1+; POLYCHROMASIA SLIGHT; SCHISTOCYTES SLIGHT; TOXIC GRANULATION SLIGHT; TOXIC VACUOLATION PRESENT
[2017-08-30 14:19] LABS: ARTERIAL BLOOD FIO2 50%
[2017-08-30] MEDS ORDERED: PHARMACY COMMUNICATION ORDER MC NR (15:15)
--- NOTE | 2017-08-30 15:41 | RADIOLOGY REPORT (SQ) ---
EXAM DESCRIPTION: KUB/ABDOMEN (SINGLE VIEW) COMPLETED DATE/TIME: 08/30/2017 3:20 pm REASON FOR STUDY: NG Tube Placement COMPARISON: None. NUMBER OF VIEWS: One view. TECHNIQUE: Supine radiographic image of the abdomen acquired. LIMITATIONS: None. FINDINGS: BOWEL GAS PATTERN: Normal bowel gas pattern. No dilated loops. CALCIFICATIONS: No suspicious calcifications. SOFT TISSUES: No gross mass or suggestion of organomegaly. HARDWARE: The nasogastric tube is coiled in the intrathoracic stomach above the hemidiaphragm. BONES: No acute fracture. No worrisome bone lesions. OTHER: No other significant finding. IMPRESSION: Nasogastric tube coiled in the intrathoracic stomach above the hemidiaphragm. TECHNICAL DOCUMENTATION: JOB ID: [id number] [employer]- All Rights Reserved Reading location - IP/workstation name: [email or web address]
[2017-08-30] MEDS: NORMAL SALINE 1000 ML 1,000 ML IV PRN (15:55)
[2017-08-30 17:45] LABS: HEMATOCRIT 28.6 % (37.9-51.0); HEMOGLOBIN 9.7 g/dL (13.5-17.0); MEAN CORPUSCULAR HGB CONC 33.9 g/dL (32.0-36.0); MEAN CORPUSCULAR VOLUME 89 fl (80-97); PLATELET COUNT 201 10^3/uL (150-450); RED BLOOD COUNT 3.23 10^6/uL (4.35-5.55); WHITE BLOOD COUNT 11.7 10^3/uL (4.0-10.5)
[2017-08-30 18:05] LABS: APPEARANCE,URINE SLIGHTLY-CLOUDY; BILIRUBIN,URINE NEGATIVE (NEGATIVE); COLOR,URINE YELLOW; GLUCOSE, URINE NEGATIVE (NEGATIVE); KETONES,URINE TRACE mg/dL (NEGATIVE); LEUKOCYTE ESTERASE,URINE NEGATIVE (NEGATIVE); NITRITE,URINE NEGATIVE (NEGATIVE); PROTEIN,URINE 30 mg/dL (NEGATIVE); URINE SPECIFIC GRAVITY 1.046; UROBILINOGEN,URINE NEGATIVE mg/dL (<2.0)
[2017-08-30 21:17] LABS: HEMOGLOBIN 9.5 g/dL (13.5-17.0); MEAN CORPUSCULAR HGB CONC 33.8 g/dL (32.0-36.0); MEAN CORPUSCULAR VOLUME 89 fl (80-97); PLATELET COUNT 172 10^3/uL (150-450); RED BLOOD COUNT 3.16 10^6/uL (4.35-5.55); RED CELL DISTRIBUTION WIDTH 21.1 % (11.5-14.0); WHITE BLOOD COUNT 10.1 10^3/uL (4.0-10.5)
[2017-08-30] MEDS: ACETAMINOPHEN SOLN 325 MG/10.15 ML UDCUP NG PRN (21:59)
[2017-08-31 01:15] LABS: HEMATOCRIT 27.6 % (37.9-51.0); HEMOGLOBIN 9.3 g/dL (13.5-17.0); MEAN CORPUSCULAR HEMOGLOBIN 29.9 pg (27.0-33.4); MEAN CORPUSCULAR HGB CONC 33.8 g/dL (32.0-36.0); MEAN CORPUSCULAR VOLUME 89 fl (80-97); PLATELET COUNT 165 10^3/uL (150-450); RED BLOOD COUNT 3.12 10^6/uL (4.35-5.55); RED CELL DISTRIBUTION WIDTH 20.8 % (11.5-14.0); WHITE BLOOD COUNT 8.3 10^3/uL (4.0-10.5)
[2017-08-31] MEDS: NORMAL SALINE 1000 ML 1,000 ML IV PRN ×2 (01:49→23:22)
[2017-08-31] MEDS: LANSOPRAZOLE 30 MG TAB.RAP.DR NG SCH (05:51)
[2017-08-31 05:56] LABS: ARTERIAL BLOOD H2CO3 0.86 mmol/L (1.05-1.35); ARTERIAL BLOOD HCO3 19.9 mmol/L (20-26); ARTERIAL BLOOD O2 SATURATION 96.4 % (94-98); ARTERIAL BLOOD PCO2 28.5 mmHg (35-45); ARTERIAL BLOOD PH 7.46 (7.35-7.45); ARTERIAL BLOOD PO2 78.4 mmHg (80-100); ARTERIAL BLOOD TOTAL CO2 20.8 mmol/L (23-27)
[2017-08-31 06:04] LABS: ARTERIAL BLOOD FIO2 50%
[2017-08-31 06:10] LABS: ANION GAP 8 (5-19); BLOOD UREA NITROGEN 24 mg/dL (7-20); CALCIUM 7.3 mg/dL (8.4-10.2); CARBON DIOXIDE 21 mmol/L (22-30); CHLORIDE 104 mmol/L (98-107); GLUCOSE 115 mg/dL (75-110); POTASSIUM 3.7 mmol/L (3.6-5.0); SODIUM 132.6 mmol/L (137-145)
[2017-08-31] MEDS: DEXTROSE 5%-WATER 250 ML with NOREPINEPHRINE BITARTRATE 4 MG IV PRN ×2 (06:30)
[2017-08-31 06:54] LABS: ABSOLUTE BASOPHILS # (AUTO) 0.1 10^3/uL (0.0-0.2); ABSOLUTE EOSINOPHILS # (AUTO) 0.1 10^3/uL (0.0-0.6); ABSOLUTE LYMPHOCYTES (AUTO) 1.2 10^3/uL (0.5-4.7); ABSOLUTE MONOCYTES (AUTO) 1.1 10^3/uL (0.1-1.4); ABSOLUTE NEUT (AUTO) 5.3 10^3/uL (1.7-8.2); BASOPHILS % (AUTO) 1.3 % (0-2); EOSINOPHILS % (AUTO) 1.3 % (0-6); HEMATOCRIT 27.2 % (37.9-51.0); HEMOGLOBIN 9.3 g/dL (13.5-17.0); LYMPHOCYTES % (AUTO) 15.7 % (13-45); MEAN CORPUSCULAR HEMOGLOBIN 30.1 pg (27.0-33.4); MEAN CORPUSCULAR VOLUME 89 fl (80-97); MONOCYTES % (AUTO) 14.5 % (3-13); PLATELET COUNT 168 10^3/uL (150-450); RED BLOOD COUNT 3.08 10^6/uL (4.35-5.55); RED CELL DISTRIBUTION WIDTH 20.6 % (11.5-14.0); SEGMENTED NEUTROPHILS % (AUTO) 67.2 % (42-78); TOTAL CELLS COUNTED % (AUTO) 100 %; WHITE BLOOD COUNT 7.9 10^3/uL (4.0-10.5)
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
--- NOTE | 2017-08-31 07:14 | RADIOLOGY REPORT (SQ) ---
EXAM DESCRIPTION: CHEST SINGLE VIEW COMPLETED DATE/TIME: 08/31/2017 6:24 am REASON FOR STUDY: Pneumonia COMPARISON: CT chest 08/30/2017 Chest films 09/12/2014, 08/29/2017, 08/30/2017 EXAM PARAMETERS: NUMBER OF VIEWS: One view. TECHNIQUE: Single frontal radiographic view of the chest acquired. RADIATION DOSE: NA LIMITATIONS: None. FINDINGS: LUNGS AND PLEURA: Minimal left basilar airspace disease. Lungs are otherwise grossly tyra r with upper lobe hyperinflation. No pleural effusion. No pneumothorax. MEDIASTINUM AND HILAR STRUCTURES: Large retrocardiac hiatal hernia containing nearly the entire stoma ch HEART AND VASCULAR STRUCTURES: Stable mild cardiomegaly BONES: No acute findings. HARDWARE: Right jugular central line tip superior vena cava. Nasogastric tube tip and side port belo w the hemidiaphragms. OTHER: No other significant finding. IMPRESSION: Minimal residual left basilar airspace disease TECHNICAL DOCUMENTATION: JOB ID: [id number] [employer]- All Rights Reserved Reading location - IP/workstation name: [email or web address]
[2017-08-31] MEDS ORDERED: MIDAZOLAM HCL 0 MG/0 ML RTUINJ ONE (07:32)
--- NOTE | 2017-08-31 07:49 | EKG REPORT ---
SEVERITY:- BORDERLINE ECG - SINUS RHYTHM BORDERLINE T WAVE ABNORMALITIES : Confirmed by: Otilia Armenta MD 31-Aug-2017 07:48:40
[2017-08-31 10:49] LABS: PATH REVIEW PATHOLOGIST REVIEWED
[2017-08-31] MEDS: LEVOFLOXACIN 500 MG/D5W RTU 500 MG/100 ML RTUPB IV SCH (12:50)
[2017-08-31] MEDS: CEFTRIAXONE 1 GM/D5W RTU 1 GM/50 ML RTUPB IV SCH (12:51)
[2017-08-31] MEDS: ENOXAPARIN SODIUM INJ 30 MG/0.3 ML DISP.SYRIN SUBCUT SCH (12:52)
[2017-08-31] MEDS: ACETAMINOPHEN SOLN 325 MG/10.15 ML UDCUP NG PRN (19:38)
[2017-09-01 04:32] LABS: ABSOLUTE BASOPHILS # (AUTO) 0.2 10^3/uL (0.0-0.2); ABSOLUTE EOSINOPHILS # (AUTO) 0.2 10^3/uL (0.0-0.6); ABSOLUTE LYMPHOCYTES (AUTO) 1.1 10^3/uL (0.5-4.7); ABSOLUTE MONOCYTES (AUTO) 1.3 10^3/uL (0.1-1.4); ABSOLUTE NEUT (AUTO) 6.7 10^3/uL (1.7-8.2); BASOPHILS % (AUTO) 2.1 % (0-2); EOSINOPHILS % (AUTO) 1.6 % (0-6); HEMATOCRIT 29.3 % (37.9-51.0); HEMOGLOBIN 9.9 g/dL (13.5-17.0); LYMPHOCYTES % (AUTO) 11.8 % (13-45); MEAN CORPUSCULAR HEMOGLOBIN 29.8 pg (27.0-33.4); MEAN CORPUSCULAR HGB CONC 33.7 g/dL (32.0-36.0); MEAN CORPUSCULAR VOLUME 89 fl (80-97); MONOCYTES % (AUTO) 13.4 % (3-13); PLATELET COUNT 172 10^3/uL (150-450); RED BLOOD COUNT 3.31 10^6/uL (4.35-5.55); RED CELL DISTRIBUTION WIDTH 20.6 % (11.5-14.0); SEGMENTED NEUTROPHILS % (AUTO) 71.1 % (42-78); TOTAL CELLS COUNTED % (AUTO) 100 %; WHITE BLOOD COUNT 9.4 10^3/uL (4.0-10.5)
[2017-09-01 04:41] LABS: ANION GAP 8 (5-19); BLOOD UREA NITROGEN 19 mg/dL (7-20); CARBON DIOXIDE 23 mmol/L (22-30); CHLORIDE 113 mmol/L (98-107); GLUCOSE 87 mg/dL (75-110); POTASSIUM 3.9 mmol/L (3.6-5.0); SODIUM 143.7 mmol/L (137-145)
[2017-09-01 04:51] LABS: ANISOCYTOSIS 2+; BURR CELLS SLIGHT; HYPOCHROMASIA 2+; OVALOCYTES SLIGHT; PLATELET COMMENT ADEQUATE; POIKILOCYTOSIS 1+; TARGET CELLS SLIGHT; TOXIC GRANULATION SLIGHT
[2017-09-01 04:52] LABS: PLATELET LARGE PRESENT
[2017-09-01] MEDS: NORMAL SALINE 1000 ML 1,000 ML IV PRN (05:26)
[2017-09-01] MEDS: LANSOPRAZOLE 30 MG TAB.RAP.DR NG SCH (05:27)
[2017-09-01 05:29] LABS: ARTERIAL BLOOD H2CO3 0.95 mmol/L (1.05-1.35); ARTERIAL BLOOD HCO3 21.3 mmol/L (20-26); ARTERIAL BLOOD O2 SATURATION 98.3 % (94-98); ARTERIAL BLOOD PCO2 31.4 mmHg (35-45); ARTERIAL BLOOD PH 7.45 (7.35-7.45); ARTERIAL BLOOD PO2 110.8 mmHg (80-100); ARTERIAL BLOOD TOTAL CO2 22.3 mmol/L (23-27)
[2017-09-01 05:30] LABS: ARTERIAL BLOOD FIO2 50%
--- NOTE | 2017-09-01 07:14 | RADIOLOGY REPORT (SQ) ---
EXAM DESCRIPTION: XR CHEST 1 VIEW COMPLETED DATE/TME: 09/01/2017 06:00 CLINICAL HISTORY: resp failure COMPARISON: 08/30/2017 FINDINGS: Single frontal view of the chest. Tortuosity of thoracic aorta. Heart is not enlarged. No pneumothorax or definite pleural effusion. Improved aeration with persistent left basilar airspace opacity. Left retrocardiac opacities are stable. Removal of right IJ central venous catheter. Osseous structures are stable. Leads overlie the chest. Upper abdominal soft tissues are unremarkable. IMPRESSION: 1. Interval removal of right IJ central venous catheter. Improved aeration of left lung base with mild residual opacity Electronically signed by: Oj Royal 09/01/2017 6:13 AM
[2017-09-01] MEDS ORDERED: NORMAL SALINE 1000 ML 1,000 ML IV PRN (08:19)
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
[2017-09-01] MEDS: LEVOFLOXACIN 500 MG/D5W RTU 500 MG/100 ML RTUPB IV SCH (08:45)
[2017-09-01] MEDS: CEFTRIAXONE 1 GM/D5W RTU 1 GM/50 ML RTUPB IV SCH (10:04)
[2017-09-01] MEDS: ENOXAPARIN SODIUM INJ 30 MG/0.3 ML DISP.SYRIN SUBCUT SCH (10:06)
[2017-09-01 15:32] LABS: ARTERIAL BLOOD BASE EXCESS -2.9 mmol/L; ARTERIAL BLOOD FIO2 50%; ARTERIAL BLOOD H2CO3 0.93 mmol/L (1.05-1.35); ARTERIAL BLOOD HCO3 20.5 mmol/L (20-26); ARTERIAL BLOOD O2 SATURATION 98.5 % (94-98); ARTERIAL BLOOD PH 7.44 (7.35-7.45); ARTERIAL BLOOD PO2 117.9 mmHg (80-100); ARTERIAL BLOOD TOTAL CO2 21.5 mmol/L (23-27)
[2017-09-02 04:13] LABS: ANION GAP 11 (5-19); BLOOD UREA NITROGEN 15 mg/dL (7-20); CALCIUM 8.3 mg/dL (8.4-10.2); CARBON DIOXIDE 22 mmol/L (22-30); CHLORIDE 112 mmol/L (98-107); GLUCOSE 69 mg/dL (75-110); POTASSIUM 3.4 mmol/L (3.6-5.0); SODIUM 144.7 mmol/L (137-145)
[2017-09-02 04:32] LABS: ABSOLUTE BASOPHILS # (AUTO) 0.1 10^3/uL (0.0-0.2); ABSOLUTE EOSINOPHILS # (AUTO) 0.1 10^3/uL (0.0-0.6); ABSOLUTE LYMPHOCYTES (AUTO) 0.7 10^3/uL (0.5-4.7); ABSOLUTE MONOCYTES (AUTO) 1.3 10^3/uL (0.1-1.4); ABSOLUTE NEUT (AUTO) 6.5 10^3/uL (1.7-8.2); BASOPHILS % (AUTO) 1.6 % (0-2); HEMATOCRIT 29.3 % (37.9-51.0); HEMOGLOBIN 9.7 g/dL (13.5-17.0); LYMPHOCYTES % (AUTO) 8.3 % (13-45); MEAN CORPUSCULAR HEMOGLOBIN 29.3 pg (27.0-33.4); MEAN CORPUSCULAR HGB CONC 33.1 g/dL (32.0-36.0); MEAN CORPUSCULAR VOLUME 89 fl (80-97); MONOCYTES % (AUTO) 14.4 % (3-13); PLATELET COUNT 177 10^3/uL (150-450); RED CELL DISTRIBUTION WIDTH 20.7 % (11.5-14.0); SEGMENTED NEUTROPHILS % (AUTO) 74.7 % (42-78); TOTAL CELLS COUNTED % (AUTO) 100 %; WHITE BLOOD COUNT 8.7 10^3/uL (4.0-10.5)
[2017-09-02 04:46] LABS: ANISOCYTOSIS 2+; HYPOCHROMASIA 2+; OVALOCYTES 1+; POIKILOCYTOSIS 1+
[2017-09-02 04:47] LABS: PLATELET COMMENT ADEQUATE; PLATELET LARGE PRESENT
[2017-09-02 05:32] LABS: ARTERIAL BLOOD BASE EXCESS -3.9 mmol/L; ARTERIAL BLOOD H2CO3 0.86 mmol/L (1.05-1.35); ARTERIAL BLOOD O2 SATURATION 94.3 % (94-98); ARTERIAL BLOOD PCO2 28.5 mmHg (35-45); ARTERIAL BLOOD PH 7.44 (7.35-7.45); ARTERIAL BLOOD PO2 66.8 mmHg (80-100); ARTERIAL BLOOD TOTAL CO2 19.9 mmol/L (23-27)
[2017-09-02 05:37] LABS: ARTERIAL BLOOD FIO2 30%
[2017-09-02] MEDS: LANSOPRAZOLE 30 MG TAB.RAP.DR NG SCH (05:49)
[2017-09-02] MEDS: LEVOFLOXACIN 500 MG/D5W RTU 500 MG/100 ML RTUPB IV SCH (08:46)
--- NOTE | 2017-09-02 08:47 | RADIOLOGY REPORT (SQ) ---
EXAM DESCRIPTION: CHEST SINGLE VIEW COMPLETED DATE/TIME: 09/02/2017 7:49 am REASON FOR STUDY: resp failure COMPARISON: 09/01/2017 EXAM PARAMETERS: NUMBER OF VIEWS: One view. TECHNIQUE: Single frontal radiographic view of the chest acquired. RADIATION DOSE: NA LIMITATIONS: None. FINDINGS: LUNGS AND PLEURA: No opacities, masses or pneumothorax. No pleural effusion. MEDIASTINUM AND HILAR STRUCTURES: Dilated esophagus best seen on CT. HEART AND VASCULAR STRUCTURES: Heart normal in size. Normal vasculature. BONES: No acute findings. HARDWARE: None in the chest. OTHER: No other significant finding. IMPRESSION: No acute findings. dilated esophagus seen on CT. TECHNICAL DOCUMENTATION: JOB ID: [id number] [facility]- All Rights Reserved Reading location - IP/workstation name: [email or web address]
[2017-09-02] MEDS: ENOXAPARIN SODIUM INJ 30 MG/0.3 ML DISP.SYRIN SUBCUT SCH (09:05)
[2017-09-02] MEDS: CEFTRIAXONE 1 GM/D5W RTU 1 GM/50 ML RTUPB IV SCH (09:07)
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
[2017-09-02] MEDS: POTASSIUM CHLORIDE 20 MEQ/50 ML RTU IV SCH ×2 (11:04→13:41)
[2017-09-02] MEDS ORDERED: FAMOTIDINE 20 MG TABLET PO ONE (16:30)
--- NOTE | 2017-09-02 17:40 | PDOC CONSULTATION ---
Consultation Consult Date: 08/30/17 Attending physician:: CLAUDIA ALVES Consult reason:: Acute/chronic respiratory failure History of Present Illness Admission Date/PCP: 08/30/17 05:16 CLAUDIA ALVES MD History of Present Illness: NELIDA MARTEL is a 77 year old male, followed by Dr. Nj presented T is increasing shortness of breath and confusion was subsequently admitted to the ICU on BiPAP and remained confused and somewhat somnolent at this time said history of COPD PTSD aortic stenosis and probably some early onset dementia Past Medical History Cardiac Medical History: Reports: Hyperlipidema, Hypertension, Heart Murmur - 2012 aortic stenosis with [id number] Denies: Atrial Fibrillation, Congestive Heart Failure, Myocardial Infarction Pulmonary Medical History: Reports: Chronic Obstructive Pulmonary Disease (COPD ) - 2008 fev1=27%. 2012 bullae Denies: Asthma Neurological Medical History: Reports: Seizures - until 1990 Endocrine Medical History: Reports: None Renal/ Medical History: Reports: Chronic Kidney Disease Malignancy Medical History: Reports: Other - 1993 prostate GI Medical History: Reports: Gastroesophageal Reflux Disease Denies: Hiatal Hernia Musculoskeltal Medical History: Reports: Arthritis Psychiatric Medical History: Reports: Depression - When six years ago. Unsure if he still take antidepressant Traumatic Medical History: Reports: None Hematology: Reports: Anemia - 2001 anemic chronic disease with [id number] Denies: Sickle Cell Disease Infectious Medical History: Reports: None Past Surgical History Past Surgical History: Reports: Orthopedic Surgery - L Knee Replacement, Other - 1993 Prostatectomy cataracts Social History Information Source: [facility] Records Lives with: Alone Smoking Status: Former Smoker Number of Years Smokin Last Time Smoked: Greater than 10 years Frequency of Alcohol Use: None Hx Recreational Drug Use: No Drugs: None Hx Prescription Drug Abuse: No - Advance Directive Resuscitation Status: Full Code Family History Family History: CAD, Hyperlipidemia, Hypertension Parental Family History Reviewed: No Children Family History Reviewed: No Sibling(s) Family History Reviewed.: No Medication/Allergy Home Medications: Amlodipine Besylate 10 mg PO DAILY 06/06/16 Pantoprazole Sodium 40 mg PO DAILY 06/06/16 Citalopram Hydrobromide [Citalopram HBr] 20 mg PO DAILY 08/30/17 Gabapentin [Neurontin 300 mg Capsule] 300 mg PO TID 08/30/17 Lisinopril [Prinivil 40 mg Tablet] 40 mg PO DAILY 08/30/17 Allergies/Adverse Reactions: No Known Allergies Allergy (Verified 08/30/17 11:37) Review of Systems ROS unobtainable: Due to mental status Physical Exam Vital Signs: Temp Pulse Resp BP Pulse Ox 99.1 F 94 19 145/76 H 95 09/02/17 04:46 09/02/17 08:00 09/02/17 16:00 09/02/17 15:43 09/02/17 16:00 Intake & Output 09/01/17 09/02/17 09/03/17 06:59 06:59 06:59 Intake Total 2725 1839 Output Total 4705 5950 1100 Balance -1979 -4111 -1100 Weight 72.3 kg 68.7 kg General appearance: PRESENT: no acute distress, disheveled, well-developed. ABSENT: cooperative Head exam: PRESENT: atraumatic, normocephalic Eye exam: PRESENT: conjunctiva pale, EOMI. ABSENT: nystagmus, periorbital swelling, scleral icterus Mouth exam: PRESENT: dry mucosa, neck supple, tongue midline Neck exam: ABSENT: carotid bruit, JVD, lymphadenopathy, thyromegaly, tracheal deviation, tracheostomy Respiratory exam: PRESENT: crackles, decreased breath sounds, prolonged expiratory phas, rhonchi, wheezes. ABSENT: retraction, stridor, tachypnea Cardiovascular exam: PRESENT: RRR, +S1, +S2, tachycardia Pulses: PRESENT: normal radial pulses GI/Abdominal exam: PRESENT: distended, hypoactive bowel sounds, soft Gentrourinary exam: PRESENT: indwelling catheter Extremities exam: ABSENT: calf tenderness, clubbing, joint swelling Musculoskeletal exam: ABSENT: deformity, dislocation Neurological exam: PRESENT: altered, awake, oriented to person. ABSENT: alert, oriented to place, oriented to time, oriented to situation Psychiatric exam: PRESENT: flat affect Focused psych exam: PRESENT: internal stimuli Skin exam: PRESENT: dry, warm Results Laboratory Results: 09/02/17 03:52 09/02/17 03:52 09/02/17 09/02/17 09/02/17 03:52 03:52 04:50 WBC 8.7 RBC 3.30 L Hgb 9.7 L Hct 29.3 L MCV 89 MCH 29.3 MCHC 33.1 RDW 20.7 H Plt Count 177 Seg Neutrophils % 74.7 Lymphocytes % 8.3 L Monocytes % 14.4 H Eosinophils % 1.0 Basophils % 1.6 Absolute Neutrophils 6.5 Absolute Lymphocytes 0.7 Absolute Monocytes 1.3 Absolute Eosinophils 0.1 Absolute Basophils 0.1 Carbonic Acid 0.86 L HCO3/H2CO3 Ratio 22:1 ABG pH 7.44 ABG pCO2 28.5 L ABG pO2 66.8 L ABG HCO3 19.0 L ABG O2 Saturation 94.3 ABG Base Excess -3.9 FiO2 30% Sodium 144.7 Potassium 3.4 L Chloride 112 H Carbon Dioxide 22 Anion Gap 11 BUN 15 Creatinine 1.25 Est GFR ( Amer) > 60 Est GFR (Non-Af Amer) 56 L Glucose 69 L Calcium 8.3 L Magnesium 1.9 08/30/17 13:00 NT-Pro-B Natriuret Pep 1870 H Impressions: Cervical Spine CT 08/29/17 22:20 IMPRESSION: No acute fracture or subluxation Head CT 08/29/17 22:20 IMPRESSION: No evidence of acute process Atrophy with periventricular white matter disease and microvascular ischemic changes TECHNICAL DOCUMENTATION: Quality ID # [id number]: Final reports with documentation of one or more dose reduction techniques (e.g., Automated exposure control, adjustment of the mA and/or kV according to patient size, use of iterative reconstruction technique) 2010 [employer]- All Rights Reserved Hip X-Ray 08/29/17 22:20 IMPRESSION: No acute fracture or dislocation. Knee X-Ray 08/29/17 22:20 IMPRESSION: No acute fracture or dislocation. Thoracic Spine X-Ray 08/29/17 22:21 IMPRESSION: Degenerative change without definite fracture noted Widened mediastinum as noted on previous chest x-rays likely secondary to ectatic vascular structures 2010 [employer]- All Rights Reserved KUB X-Ray 08/30/17 00:00 IMPRESSION: Nasogastric tube coiled in the intrathoracic stomach above the hemidiaphragm. Chest/Abdomen CTA 08/30/17 01:27 IMPRESSION: 1. No pulmonary embolus identified. 2. Tortuosity of the thoracic aorta without evidence of dissection or aneurysm. 3. Chronic interstitial lung disease predominantly involving the lung bases with paraseptal emphysematous change. A component of superimposed acute pneumonic or increased atelectasis process particularly in the right lung base cannot be excluded due to increase in opacity from comparison study. 4. Coronary artery atherosclerosis. 5. Large hiatal hernia. 6. There is a 0.5 cm indeterminate pulmonary nodule involving the right lung base. By Fleischner Society guidelines if the patient is at high risk for lung cancer, follow-up CT of the chest in 12 months is recommended. This exam was performed according to our departmental dose-optimization program, which includes automated exposure control, adjustment of the mA and/or kV according to patient size and/or use of iterative reconstruction technique. Abdomen/Pelvis CT 08/30/17 03:42 IMPRESSION: 1. Mild wall thickening of the ascending colon. This could be related to under distention however colitis of infectious or inflammatory etiology could produce a similar appearance. 2. Retained contrast in the renal collecting system. This could indicate a component of renal failure. 3. Diverticulosis without evidence of acute diverticulitis. 4. Possible cholelithiasis without evidence of acute cholecystitis. 5. Large hiatal hernia. This exam was performed according to our departmental dose-optimization program, which includes automated exposure control, adjustment of the mA and/or kV according to patient size and/or use of iterative reconstruction technique. Chest X-Ray 09/02/17 06:00 IMPRESSION: No acute findings. dilated esophagus seen on CT. Assessment & Plan - Diagnosis (1) Altered mental status, unspecified Is this a current diagnosis for this admission?: Yes Plan: PTSD early dementia hypoxemia (2) ARDS (adult respiratory distress syndrome) Is this a current diagnosis for this admission?: Yes Plan: PaO2/FiO2 equal to 111 - Time Total Critical Time (Minutes): 55
--- NOTE | 2017-09-02 18:25 | PDOC PROGRESS REPORT ---
Subjective Progress Note for:: 08/31/17 Subjective:: Confused mildly agitated Reason For Visit: PNEUMONIA Physical Exam Vital Signs: Temp Pulse Resp BP Pulse Ox 98.6 F 83 11 L 115/62 100 08/31/17 05:42 08/30/17 20:00 08/31/17 08:15 08/31/17 06:29 08/31/17 08:15 Intake & Output 08/30/17 08/31/17 09/01/17 06:59 06:59 06:59 Intake Total 3586 Output Total 15 1325 300 Balance -15 2261 -300 Weight 75 kg General appearance: PRESENT: no acute distress, disheveled. ABSENT: cooperative Head exam: PRESENT: atraumatic, normocephalic Eye exam: PRESENT: conjunctiva pale, EOMI. ABSENT: nystagmus, periorbital swelling, scleral icterus Mouth exam: PRESENT: dry mucosa, neck supple, tongue midline Neck exam: ABSENT: carotid bruit, JVD, lymphadenopathy, thyromegaly, tracheal deviation, tracheostomy Respiratory exam: PRESENT: decreased breath sounds, prolonged expiratory phas, rhonchi, wheezes. ABSENT: stridor Cardiovascular exam: PRESENT: RRR, +S1, +S2, tachycardia Pulses: PRESENT: normal radial pulses GI/Abdominal exam: PRESENT: distended, hypoactive bowel sounds, soft Gentrourinary exam: PRESENT: indwelling catheter Extremities exam: PRESENT: calf tenderness. ABSENT: clubbing, joint swelling Musculoskeletal exam: ABSENT: deformity, dislocation Neurological exam: PRESENT: altered, awake Psychiatric exam: PRESENT: agitated - Less so in the last 24 hrs Skin exam: PRESENT: dry, warm Results Laboratory Results: 08/31/17 05:40 08/31/17 05:40 08/30/17 08/30/17 08/30/17 11:07 11:30 13:00 WBC 10.4 RBC 3.21 L Hgb 9.7 L D Hct 28.7 L MCV 90 MCH 30.1 MCHC 33.6 RDW 20.8 H Plt Count 215 Seg Neutrophils % Not Reportable Lymphocytes % Not Reportable Monocytes % Not Reportable Eosinophils % Not Reportable Basophils % Not Reportable Absolute Neutrophils Not Reportable Absolute Lymphocytes Not Reportable Absolute Monocytes Not Reportable Absolute Eosinophils Not Reportable Absolute Basophils Not Reportable Carbonic Acid 0.93 L HCO3/H2CO3 Ratio 14:1 ABG pH 7.27 L ABG pCO2 30.9 L ABG pO2 63.4 L ABG HCO3 13.8 L ABG O2 Saturation 89.6 L ABG Base Excess -11.9 FiO2 10% Sodium Potassium Chloride Carbon Dioxide Anion Gap BUN Creatinine Est GFR ( Amer) Est GFR (Non-Af Amer) Glucose Calcium Magnesium Total Bilirubin AST ALT Alkaline Phosphatase Total Protein Albumin Urine Color YELLOW Urine Appearance SLIGHTLY-CLOUDY Urine pH 5.0 Ur Specific [place] > 1.060 Urine Protein 30 H Urine Glucose (UA) 50 H Urine Ketones TRACE H Urine Blood MODERATE H Urine Nitrite NEGATIVE Ur Leukocyte Esterase NEGATIVE Urine WBC (Auto) 4 Urine RBC (Auto) 7 08/30/17 08/30/17 08/30/17 13:00 14:00 17:00 WBC 11.7 H RBC 3.23 L Hgb 9.7 L Hct 28.6 L MCV 89 MCH 30.0 MCHC 33.9 RDW 21.0 H Plt Count 201 Seg Neutrophils % Lymphocytes % Monocytes % Eosinophils % Basophils % Absolute Neutrophils Absolute Lymphocytes Absolute Monocytes Absolute Eosinophils Absolute Basophils Carbonic Acid 0.98 L HCO3/H2CO3 Ratio 17:1 ABG pH 7.33 L ABG pCO2 32.4 L ABG pO2 57.4 L ABG HCO3 16.7 L ABG O2 Saturation 88.4 L ABG Base Excess -8.2 FiO2 50% Sodium 131.4 L Potassium 3.7 Chloride 100 Carbon Dioxide 16 L D Anion Gap 15 BUN 24 H Creatinine 2.33 H Est GFR ( Amer) 33 L Est GFR (Non-Af Amer) 27 L Glucose 406 H* Calcium 7.5 L Magnesium 1.3 L Total Bilirubin 0.6 AST 20 ALT 16 L Alkaline Phosphatase 31 L Total Protein 6.2 L Albumin 3.4 L Urine Color Urine Appearance Urine pH Ur Specific [place] Urine Protein Urine Glucose (UA) Urine Ketones Urine Blood Urine Nitrite Ur Leukocyte Esterase Urine WBC (Auto) Urine RBC (Auto) 08/30/17 08/30/17 08/31/17 17:15 21:05 01:05 WBC 10.1 8.3 RBC 3.16 L 3.12 L Hgb 9.5 L 9.3 L Hct 28.0 L 27.6 L MCV 89 89 MCH 30.0 29.9 MCHC 33.8 33.8 RDW 21.1 H 20.8 H Plt Count 172 165 Seg Neutrophils % Lymphocytes % Monocytes % Eosinophils % Basophils % Absolute Neutrophils Absolute Lymphocytes Absolute Monocytes Absolute Eosinophils Absolute Basophils Carbonic Acid HCO3/H2CO3 Ratio ABG pH ABG pCO2 ABG pO2 ABG HCO3 ABG O2 Saturation ABG Base Excess FiO2 Sodium Potassium Chloride Carbon Dioxide Anion Gap BUN Creatinine Est GFR ( Amer) Est GFR (Non-Af Amer) Glucose Calcium Magnesium Total Bilirubin AST ALT Alkaline Phosphatase Total Protein Albumin Urine Color YELLOW Urine Appearance SLIGHTLY-CLOUDY Urine pH 5.0 Ur Specific [place] 1.046 Urine Protein 30 H Urine Glucose (UA) NEGATIVE Urine Ketones TRACE H Urine Blood MODERATE H Urine Nitrite NEGATIVE Ur Leukocyte Esterase NEGATIVE Urine WBC (Auto) 3 Urine RBC (Auto) 08/31/17 08/31/17 08/31/17 05:40 05:40 05:40 WBC 7.9 RBC 3.08 L Hgb 9.3 L Hct 27.2 L MCV 89 MCH 30.1 MCHC 34.0 RDW 20.6 H Plt Count 168 Seg Neutrophils % 67.2 Lymphocytes % 15.7 Monocytes % 14.5 H Eosinophils % 1.3 Basophils % 1.3 Absolute Neutrophils 5.3 Absolute Lymphocytes 1.2 Absolute Monocytes 1.1 Absolute Eosinophils 0.1 Absolute Basophils 0.1 Carbonic Acid 0.86 L HCO3/H2CO3 Ratio 23:1 ABG pH 7.46 H ABG pCO2 28.5 L ABG pO2 78.4 L ABG HCO3 19.9 L ABG O2 Saturation 96.4 ABG Base Excess -3.0 FiO2 50% Sodium 132.6 L Potassium 3.7 Chloride 104 Carbon Dioxide 21 L Anion Gap 8 BUN 24 H Creatinine 2.03 H Est GFR ( Amer) 39 L Est GFR (Non-Af Amer) 32 L Glucose 115 H Calcium 7.3 L Magnesium Total Bilirubin AST ALT Alkaline Phosphatase Total Protein Albumin Urine Color Urine Appearance Urine pH Ur Specific [place] Urine Protein Urine Glucose (UA) Urine Ketones Urine Blood Urine Nitrite Ur Leukocyte Esterase Urine WBC (Auto) Urine RBC (Auto) 08/30/17 13:00 NT-Pro-B Natriuret Pep 1870 H Impressions: Cervical Spine CT 08/29/17 22:20 IMPRESSION: No acute fracture or subluxation Head CT 08/29/17 22:20 IMPRESSION: No evidence of acute process Atrophy with periventricular white matter disease and microvascular ischemic changes TECHNICAL DOCUMENTATION: Quality ID # [id number]: Final reports with documentation of one or more dose reduction techniques (e.g., Automated exposure control, adjustment of the mA and/or kV according to patient size, use of iterative reconstruction technique) 2010 [employer]- All Rights Reserved Hip X-Ray 08/29/17 22:20 IMPRESSION: No acute fracture or dislocation. Knee X-Ray 08/29/17 22:20 IMPRESSION: No acute fracture or dislocation. Thoracic Spine X-Ray 08/29/17 22:21 IMPRESSION: Degenerative change without definite fracture noted Widened mediastinum as noted on previous chest x-rays likely secondary to ectatic vascular structures 2010 [employer]- All Rights Reserved KUB X-Ray 08/30/17 00:00 IMPRESSION: Nasogastric tube coiled in the intrathoracic stomach above the hemidiaphragm. Chest/Abdomen CTA 08/30/17 01:27 IMPRESSION: 1. No pulmonary embolus identified. 2. Tortuosity of the thoracic aorta without evidence of dissection or aneurysm. 3. Chronic interstitial lung disease predominantly involving the lung bases with paraseptal emphysematous change. A component of superimposed acute pneumonic or increased atelectasis process particularly in the right lung base cannot be excluded due to increase in opacity from comparison study. 4. Coronary artery atherosclerosis. 5. Large hiatal hernia. 6. There is a 0.5 cm indeterminate pulmonary nodule involving the right lung base. By Fleischner Society guidelines if the patient is at high risk for lung cancer, follow-up CT of the chest in 12 months is recommended. This exam was performed according to our departmental dose-optimization program, which includes automated exposure control, adjustment of the mA and/or kV according to patient size and/or use of iterative reconstruction technique. Abdomen/Pelvis CT 08/30/17 03:42 IMPRESSION: 1. Mild wall thickening of the ascending colon. This could be related to under distention however colitis of infectious or inflammatory etiology could produce a similar appearance. 2. Retained contrast in the renal collecting system. This could indicate a component of renal failure. 3. Diverticulosis without evidence of acute diverticulitis. 4. Possible cholelithiasis without evidence of acute cholecystitis. 5. Large hiatal hernia. This exam was performed according to our departmental dose-optimization program, which includes automated exposure control, adjustment of the mA and/or kV according to patient size and/or use of iterative reconstruction technique. Chest X-Ray 08/31/17 06:00 IMPRESSION: Minimal residual left basilar airspace disease Assessment & Plan - Diagnosis (1) ARDS (adult respiratory distress syndrome) Is this a current diagnosis for this admission?: Yes Plan: PaO2/FiO2 = 222 (2) Altered mental status, unspecified Is this a current diagnosis for this admission?: Yes Plan: Slightly less agitated still very confused - Time Total Critical Time (Minutes): 45
--- NOTE | 2017-09-02 18:30 | PDOC PROGRESS REPORT ---
Subjective Progress Note for:: 09/01/17 Subjective:: Confused Reason For Visit: PNEUMONIA Physical Exam Vital Signs: Temp Pulse Resp BP Pulse Ox 98.5 F 90 13 116/62 96 09/01/17 06:00 08/31/17 20:00 09/01/17 06:14 09/01/17 06:14 09/01/17 06:14 Intake & Output 08/31/17 09/01/17 09/02/17 06:59 06:59 06:59 Intake Total 3586 6475 Output Total 1328 5905 Balance 2261 -1979 Weight 75 kg 72.3 kg General appearance: PRESENT: no acute distress, disheveled. ABSENT: cooperative Head exam: PRESENT: atraumatic, normocephalic Eye exam: PRESENT: conjunctiva pale, EOMI. ABSENT: nystagmus, periorbital swelling, scleral icterus Mouth exam: PRESENT: dry mucosa, neck supple, tongue midline Neck exam: ABSENT: carotid bruit, JVD, lymphadenopathy, thyromegaly, tracheal deviation, tracheostomy Respiratory exam: PRESENT: decreased breath sounds, prolonged expiratory phas, rhonchi, unlabored. ABSENT: retraction, stridor Cardiovascular exam: PRESENT: RRR, +S1, +S2 Pulses: PRESENT: normal radial pulses GI/Abdominal exam: PRESENT: distended, hypoactive bowel sounds, soft Extremities exam: ABSENT: calf tenderness, clubbing, joint swelling Musculoskeletal exam: ABSENT: ambulatory, deformity, dislocation Neurological exam: PRESENT: awake, oriented to person. ABSENT: oriented to place, oriented to time, oriented to situation Psychiatric exam: PRESENT: flat affect Focused psych exam: PRESENT: internal stimuli Skin exam: PRESENT: dry, warm Results Laboratory Results: 09/01/17 04:02 09/01/17 04:02 09/01/17 09/01/17 09/01/17 04:02 04:02 05:10 WBC 9.4 RBC 3.31 L Hgb 9.9 L Hct 29.3 L MCV 89 MCH 29.8 MCHC 33.7 RDW 20.6 H Plt Count 172 Seg Neutrophils % 71.1 Lymphocytes % 11.8 L Monocytes % 13.4 H Eosinophils % 1.6 Basophils % 2.1 H Absolute Neutrophils 6.7 Absolute Lymphocytes 1.1 Absolute Monocytes 1.3 Absolute Eosinophils 0.2 Absolute Basophils 0.2 Carbonic Acid 0.95 L HCO3/H2CO3 Ratio 22:1 ABG pH 7.45 ABG pCO2 31.4 L ABG pO2 110.8 H ABG HCO3 21.3 ABG O2 Saturation 98.3 H ABG Base Excess -2.0 FiO2 50% Sodium 143.7 Potassium 3.9 Chloride 113 H Carbon Dioxide 23 Anion Gap 8 BUN 19 Creatinine 1.56 H Est GFR ( Amer) 52 L Est GFR (Non-Af Amer) 43 L Glucose 87 Calcium 8.0 L Phosphorus 2.0 L Magnesium 1.7 08/30/17 13:00 NT-Pro-B Natriuret Pep 1870 H Impressions: Cervical Spine CT 08/29/17 22:20 IMPRESSION: No acute fracture or subluxation Head CT 08/29/17 22:20 IMPRESSION: No evidence of acute process Atrophy with periventricular white matter disease and microvascular ischemic changes TECHNICAL DOCUMENTATION: Quality ID # [id number]: Final reports with documentation of one or more dose reduction techniques (e.g., Automated exposure control, adjustment of the mA and/or kV according to patient size, use of iterative reconstruction technique) 2010 [employer]- All Rights Reserved Hip X-Ray 08/29/17 22:20 IMPRESSION: No acute fracture or dislocation. Knee X-Ray 08/29/17 22:20 IMPRESSION: No acute fracture or dislocation. Thoracic Spine X-Ray 08/29/17 22:21 IMPRESSION: Degenerative change without definite fracture noted Widened mediastinum as noted on previous chest x-rays likely secondary to ectatic vascular structures 2010 [employer]- All Rights Reserved KUB X-Ray 08/30/17 00:00 IMPRESSION: Nasogastric tube coiled in the intrathoracic stomach above the hemidiaphragm. Chest/Abdomen CTA 08/30/17 01:27 IMPRESSION: 1. No pulmonary embolus identified. 2. Tortuosity of the thoracic aorta without evidence of dissection or aneurysm. 3. Chronic interstitial lung disease predominantly involving the lung bases with paraseptal emphysematous change. A component of superimposed acute pneumonic or increased atelectasis process particularly in the right lung base cannot be excluded due to increase in opacity from comparison study. 4. Coronary artery atherosclerosis. 5. Large hiatal hernia. 6. There is a 0.5 cm indeterminate pulmonary nodule involving the right lung base. By Fleischner Society guidelines if the patient is at high risk for lung cancer, follow-up CT of the chest in 12 months is recommended. This exam was performed according to our departmental dose-optimization program, which includes automated exposure control, adjustment of the mA and/or kV according to patient size and/or use of iterative reconstruction technique. Abdomen/Pelvis CT 08/30/17 03:42 IMPRESSION: 1. Mild wall thickening of the ascending colon. This could be related to under distention however colitis of infectious or inflammatory etiology could produce a similar appearance. 2. Retained contrast in the renal collecting system. This could indicate a component of renal failure. 3. Diverticulosis without evidence of acute diverticulitis. 4. Possible cholelithiasis without evidence of acute cholecystitis. 5. Large hiatal hernia. This exam was performed according to our departmental dose-optimization program, which includes automated exposure control, adjustment of the mA and/or kV according to patient size and/or use of iterative reconstruction technique. Chest X-Ray 09/01/17 06:00 IMPRESSION: 1. Interval removal of right IJ central venous catheter. Improved aeration of left lung base with mild residual opacity Assessment & Plan - Diagnosis (1) ARDS (adult respiratory distress syndrome) Is this a current diagnosis for this admission?: Yes Plan: Improving (2) Altered mental status, unspecified Is this a current diagnosis for this admission?: Yes Plan: Remains confused but not very agitated (3) Panlobular emphysema Is this a current diagnosis for this admission?: Yes Plan: Continue current bronchodilator therapy - Time Total Critical Time (Minutes): 50
--- NOTE | 2017-09-02 18:34 | PDOC PROGRESS REPORT ---
Subjective Progress Note for:: 09/02/17 Subjective:: Confused Reason For Visit: PNEUMONIA Physical Exam Vital Signs: Temp Pulse Resp BP Pulse Ox 99.1 F 94 21 H 124/66 95 09/02/17 04:46 09/02/17 08:00 09/02/17 18:00 09/02/17 17:43 09/02/17 18:00 Intake & Output 09/01/17 09/02/17 09/03/17 06:59 06:59 06:59 Intake Total 2725 1839 600 Output Total 4703 5634 1450 Balance -1980 -2560 -850 Weight 72.3 kg 68.7 kg General appearance: PRESENT: no acute distress, disheveled Head exam: PRESENT: atraumatic, normocephalic Eye exam: PRESENT: conjunctiva pale, EOMI. ABSENT: nystagmus, periorbital swelling, scleral icterus Mouth exam: PRESENT: neck supple, tongue midline Neck exam: ABSENT: carotid bruit, JVD, lymphadenopathy, thyromegaly, tracheal deviation, tracheostomy Respiratory exam: PRESENT: decreased breath sounds, prolonged expiratory phas, rhonchi, unlabored, wheezes. ABSENT: stridor Cardiovascular exam: PRESENT: RRR, +S1, +S2 Pulses: PRESENT: normal radial pulses GI/Abdominal exam: PRESENT: distended, hypoactive bowel sounds, soft Extremities exam: ABSENT: clubbing, joint swelling Musculoskeletal exam: ABSENT: deformity, dislocation Neurological exam: PRESENT: altered, awake. ABSENT: alert Focused psych exam: PRESENT: delusional Skin exam: PRESENT: dry, warm Results Laboratory Results: 09/02/17 03:52 09/02/17 03:52 09/02/17 09/02/17 09/02/17 03:52 03:52 04:50 WBC 8.7 RBC 3.30 L Hgb 9.7 L Hct 29.3 L MCV 89 MCH 29.3 MCHC 33.1 RDW 20.7 H Plt Count 177 Seg Neutrophils % 74.7 Lymphocytes % 8.3 L Monocytes % 14.4 H Eosinophils % 1.0 Basophils % 1.6 Absolute Neutrophils 6.5 Absolute Lymphocytes 0.7 Absolute Monocytes 1.3 Absolute Eosinophils 0.1 Absolute Basophils 0.1 Carbonic Acid 0.86 L HCO3/H2CO3 Ratio 22:1 ABG pH 7.44 ABG pCO2 28.5 L ABG pO2 66.8 L ABG HCO3 19.0 L ABG O2 Saturation 94.3 ABG Base Excess -3.9 FiO2 30% Sodium 144.7 Potassium 3.4 L Chloride 112 H Carbon Dioxide 22 Anion Gap 11 BUN 15 Creatinine 1.25 Est GFR ( Amer) > 60 Est GFR (Non-Af Amer) 56 L Glucose 69 L Calcium 8.3 L Magnesium 1.9 08/30/17 13:00 NT-Pro-B Natriuret Pep 1870 H Impressions: Cervical Spine CT 08/29/17 22:20 IMPRESSION: No acute fracture or subluxation Head CT 08/29/17 22:20 IMPRESSION: No evidence of acute process Atrophy with periventricular white matter disease and microvascular ischemic changes TECHNICAL DOCUMENTATION: Quality ID # 436: Final reports with documentation of one or more dose reduction techniques (e.g., Automated exposure control, adjustment of the mA and/or kV according to patient size, use of iterative reconstruction technique) 2010 [employer]- All Rights Reserved Hip X-Ray 08/29/17 22:20 IMPRESSION: No acute fracture or dislocation. Knee X-Ray 08/29/17 22:20 IMPRESSION: No acute fracture or dislocation. Thoracic Spine X-Ray 08/29/17 22:21 IMPRESSION: Degenerative change without definite fracture noted Widened mediastinum as noted on previous chest x-rays likely secondary to ectatic vascular structures 2010 [employer]- All Rights Reserved KUB X-Ray 08/30/17 00:00 IMPRESSION: Nasogastric tube coiled in the intrathoracic stomach above the hemidiaphragm. Chest/Abdomen CTA 08/30/17 01:27 IMPRESSION: 1. No pulmonary embolus identified. 2. Tortuosity of the thoracic aorta without evidence of dissection or aneurysm. 3. Chronic interstitial lung disease predominantly involving the lung bases with paraseptal emphysematous change. A component of superimposed acute pneumonic or increased atelectasis process particularly in the right lung base cannot be excluded due to increase in opacity from comparison study. 4. Coronary artery atherosclerosis. 5. Large hiatal hernia. 6. There is a 0.5 cm indeterminate pulmonary nodule involving the right lung base. By Fleischner Society guidelines if the patient is at high risk for lung cancer, follow-up CT of the chest in 12 months is recommended. This exam was performed according to our departmental dose-optimization program, which includes automated exposure control, adjustment of the mA and/or kV according to patient size and/or use of iterative reconstruction technique. Abdomen/Pelvis CT 08/30/17 03:42 IMPRESSION: 1. Mild wall thickening of the ascending colon. This could be related to under distention however colitis of infectious or inflammatory etiology could produce a similar appearance. 2. Retained contrast in the renal collecting system. This could indicate a component of renal failure. 3. Diverticulosis without evidence of acute diverticulitis. 4. Possible cholelithiasis without evidence of acute cholecystitis. 5. Large hiatal hernia. This exam was performed according to our departmental dose-optimization program, which includes automated exposure control, adjustment of the mA and/or kV according to patient size and/or use of iterative reconstruction technique. Chest X-Ray 09/02/17 06:00 IMPRESSION: No acute findings. dilated esophagus seen on CT. Assessment & Plan - Diagnosis (1) ARDS (adult respiratory distress syndrome) Is this a current diagnosis for this admission?: Yes Plan: Improving (2) Altered mental status, unspecified Is this a current diagnosis for this admission?: Yes Plan: Remains confused but not very agitated (3) Panlobular emphysema Is this a current diagnosis for this admission?: Yes Plan: Continue current bronchodilator therapy - Time Total Critical Time (Minutes): 40
[2017-09-03] MEDS: LANSOPRAZOLE 30 MG TAB.RAP.DR NG SCH (05:30)
[2017-09-03] MEDS: CEFTRIAXONE SODIUM 1,000 MG in DEXTROSE 5%-WATER 50 ML IV SCH (10:21)
[2017-09-03] MEDS: LEVOFLOXACIN 500 MG/D5W RTU 500 MG/100 ML RTUPB IV SCH (10:21)
[2017-09-03] MEDS: ENOXAPARIN SODIUM INJ 30 MG/0.3 ML DISP.SYRIN SUBCUT SCH (10:22)
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
[2017-09-04] MEDS: FAMOTIDINE 20 MG TABLET PO SCH ×3 (01:02→21:08)
[2017-09-04] MEDS: LANSOPRAZOLE 30 MG TAB.RAP.DR NG SCH (05:19)
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
[2017-09-04 07:28] LABS: ABSOLUTE RETICS # 0.069 10^6/uL (0.028-0.122); RETICULOCYTE COUNT (AUTO) 1.85 % (0.66-2.85)
[2017-09-04 07:47] LABS: IRON(TIBC) 19.6 ug/dL (49-181)
[2017-09-04] MEDS: LEVOFLOXACIN 500 MG TABLET PO SCH (08:24)
[2017-09-04 08:54] LABS: FOLATE 6.99 ng/mL (>2.76)
[2017-09-04] MEDS: ENOXAPARIN SODIUM INJ 30 MG/0.3 ML DISP.SYRIN SUBCUT SCH (10:04)
[2017-09-04] MEDS: CEFTRIAXONE SODIUM 1,000 MG in DEXTROSE 5%-WATER 50 ML IV SCH (10:11)
--- NOTE | 2017-09-04 13:32 | PDOC PROGRESS REPORT ---
Subjective Progress Note for:: 09/04/17 Subjective:: remains pleasantly confused Reason For Visit: PNEUMONIA Physical Exam Vital Signs: Temp Pulse Resp BP Pulse Ox 97.2 F 87 20 128/63 H 92 09/04/17 12:00 09/04/17 12:00 09/04/17 12:00 09/04/17 12:00 09/04/17 12:00 Intake & Output 09/03/17 09/04/17 09/05/17 06:59 06:59 06:59 Intake Total 1323 1587 473 Output Total 1450 950 500 Balance -127 637 -27 Weight 61.2 kg 61.2 kg General appearance: PRESENT: no acute distress, cooperative, disheveled, hard of hearing Head exam: PRESENT: atraumatic, normocephalic Eye exam: PRESENT: conjunctiva pale, EOMI. ABSENT: nystagmus Mouth exam: PRESENT: dry mucosa, neck supple, tongue midline Neck exam: ABSENT: carotid bruit, JVD, lymphadenopathy, thyromegaly, tracheal deviation, tracheostomy Respiratory exam: PRESENT: decreased breath sounds, prolonged expiratory phas, rales, rhonchi, unlabored. ABSENT: retraction, stridor Cardiovascular exam: PRESENT: RRR, +S1, +S2 Pulses: PRESENT: normal radial pulses GI/Abdominal exam: PRESENT: normal bowel sounds, soft Extremities exam: ABSENT: calf tenderness, clubbing, joint swelling Musculoskeletal exam: ABSENT: deformity, dislocation Neurological exam: PRESENT: awake, oriented to person. ABSENT: oriented to place, oriented to time, oriented to situation Skin exam: PRESENT: dry, warm Results Laboratory Results: 09/02/17 03:52 09/02/17 03:52 09/04/17 09/04/17 06:45 06:45 Retic Count (auto) 1.85 Absolute Retic 0.069 Iron 19.6 L TIBC 223 L % Saturation 9 Ferritin 174.00 Vitamin B12 272.0 Folate 6.99 08/30/17 12:22 Blood Blood Culture - Final NO GROWTH IN 5 DAYS 08/30/17 11:29 Blood Blood Culture - Final NO GROWTH IN 5 DAYS 09/02/17 14:00 Catheterized Urine Urine Culture - Final NO GROWTH 2 DAYS 08/30/17 13:00 NT-Pro-B Natriuret Pep 1870 H Impressions: Cervical Spine CT 08/29/17 22:20 IMPRESSION: No acute fracture or subluxation Head CT 08/29/17 22:20 IMPRESSION: No evidence of acute process Atrophy with periventricular white matter disease and microvascular ischemic changes TECHNICAL DOCUMENTATION: Quality ID # [id number]: Final reports with documentation of one or more dose reduction techniques (e.g., Automated exposure control, adjustment of the mA and/or kV according to patient size, use of iterative reconstruction technique) 2010 [employer]- All Rights Reserved Hip X-Ray 08/29/17 22:20 IMPRESSION: No acute fracture or dislocation. Knee X-Ray 08/29/17 22:20 IMPRESSION: No acute fracture or dislocation. Thoracic Spine X-Ray 08/29/17 22:21 IMPRESSION: Degenerative change without definite fracture noted Widened mediastinum as noted on previous chest x-rays likely secondary to ectatic vascular structures 2010 [employer]- All Rights Reserved KUB X-Ray 08/30/17 00:00 IMPRESSION: Nasogastric tube coiled in the intrathoracic stomach above the hemidiaphragm. Chest/Abdomen CTA 08/30/17 01:27 IMPRESSION: 1. No pulmonary embolus identified. 2. Tortuosity of the thoracic aorta without evidence of dissection or aneurysm. 3. Chronic interstitial lung disease predominantly involving the lung bases with paraseptal emphysematous change. A component of superimposed acute pneumonic or increased atelectasis process particularly in the right lung base cannot be excluded due to increase in opacity from comparison study. 4. Coronary artery atherosclerosis. 5. Large hiatal hernia. 6. There is a 0.5 cm indeterminate pulmonary nodule involving the right lung base. By Fleischner Society guidelines if the patient is at high risk for lung cancer, follow-up CT of the chest in 12 months is recommended. This exam was performed according to our departmental dose-optimization program, which includes automated exposure control, adjustment of the mA and/or kV according to patient size and/or use of iterative reconstruction technique. Abdomen/Pelvis CT 08/30/17 03:42 IMPRESSION: 1. Mild wall thickening of the ascending colon. This could be related to under distention however colitis of infectious or inflammatory etiology could produce a similar appearance. 2. Retained contrast in the renal collecting system. This could indicate a component of renal failure. 3. Diverticulosis without evidence of acute diverticulitis. 4. Possible cholelithiasis without evidence of acute cholecystitis. 5. Large hiatal hernia. This exam was performed according to our departmental dose-optimization program, which includes automated exposure control, adjustment of the mA and/or kV according to patient size and/or use of iterative reconstruction technique. Chest X-Ray 09/02/17 06:00 IMPRESSION: No acute findings. dilated esophagus seen on CT. Assessment & Plan - Diagnosis (1) ARDS (adult respiratory distress syndrome) Is this a current diagnosis for this admission?: Yes Plan: Resolved (2) Altered mental status, unspecified Is this a current diagnosis for this admission?: Yes Plan: Remains confused (3) Panlobular emphysema Is this a current diagnosis for this admission?: Yes Plan: Continue current bronchodilator therapy
[2017-09-05] MEDS: LANSOPRAZOLE 30 MG TAB.RAP.DR NG SCH (06:28)
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
[2017-09-05] MEDS: LEVOFLOXACIN 500 MG TABLET PO SCH (08:28)
[2017-09-05] MEDS: CEFTRIAXONE SODIUM 1,000 MG in DEXTROSE 5%-WATER 50 ML IV SCH (11:59)
[2017-09-05] MEDS: DONEPEZIL HCL 5 MG TABLET PO SCH (12:03)
[2017-09-05] MEDS: FAMOTIDINE 20 MG TABLET PO SCH ×2 (12:03→22:01)
[2017-09-05] MEDS: ENOXAPARIN SODIUM INJ 30 MG/0.3 ML DISP.SYRIN SUBCUT SCH (12:03)
[2017-09-06] MEDS: LANSOPRAZOLE 30 MG TAB.RAP.DR NG SCH (05:57)
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
[2017-09-06] MEDS: FAMOTIDINE 20 MG TABLET PO SCH ×2 (11:23→21:09)
[2017-09-06] MEDS: DONEPEZIL HCL 5 MG TABLET PO SCH (11:23)
[2017-09-06] MEDS: ENOXAPARIN SODIUM INJ 30 MG/0.3 ML DISP.SYRIN SUBCUT SCH (11:23)
[2017-09-07] MEDS: LANSOPRAZOLE 30 MG TAB.RAP.DR NG SCH (06:20)
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
[2017-09-07] MEDS: DONEPEZIL HCL 5 MG TABLET PO SCH (11:18)
[2017-09-07] MEDS: FAMOTIDINE 20 MG TABLET PO SCH ×2 (11:19→21:15)
[2017-09-07] MEDS: ENOXAPARIN SODIUM INJ 30 MG/0.3 ML DISP.SYRIN SUBCUT SCH (11:20)
[2017-09-07] MEDS ORDERED: ACETAMINOPHEN 325 MG TABLET PO PRN (21:31)
[2017-09-08] MEDS ORDERED: ACETAMINOPHEN 325 MG TABLET NG PRN (05:30)
[2017-09-08] MEDS: LANSOPRAZOLE 30 MG TAB.RAP.DR NG SCH (05:36)
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
[2017-09-08] MEDS: ENOXAPARIN SODIUM INJ 30 MG/0.3 ML DISP.SYRIN SUBCUT SCH (09:03)
[2017-09-08] MEDS ORDERED: FAMOTIDINE 20 MG TABLET NG SCH (10:00)
[2017-09-08] MEDS ORDERED: LUBIPROSTONE 24 MCG CAPSULE PO SCH (10:00)
[2017-09-08] MEDS ORDERED: DONEPEZIL HCL 5 MG TABLET NG SCH (10:00)
[2017-09-08 12:40] VITALS: BP 106/62
== END 2017-09-08 13:25 | DRG 871 ==
LOC: ER 21:52 → EH 08-30 05:16 → ICU 08-30 10:51 → 3W 09-02 18:31
PROVIDERS: ADMIT Family Medicine; ATTEND Family Medicine
PROC: 5A09557 Assistance with Respiratory Ventilation, Greater than 96 Consecutive Hours, Continuous Positive Airway Pressure (ICD-10-PCS; principal; 2017-08-30)
PROC: 02HV33Z Insertion of Infusion Device into Superior Vena Cava, Percutaneous Approach (ICD-10-PCS; 2017-08-30)
DX: A41.9 Sepsis, unspecified organism (principal); J18.9 Pneumonia, unspecified organism; R65.21 Severe sepsis with septic shock; N17.0 Acute kidney failure with tubular necrosis; J96.20 Acute and chronic respiratory failure, unspecified whether with hypoxia or hypercapnia; E51.9 Thiamine deficiency, unspecified; K80.00 Calculus of gallbladder with acute cholecystitis without obstruction; A09 Infectious gastroenteritis and colitis, unspecified; Z78.1 Physical restraint status; G30.1 Alzheimer's disease with late onset; F02.80 Dementia in other diseases classified elsewhere, unspecified severity, without behavioral disturbance, psychotic disturbance, mood disturbance, and anxiety; J43.1 Panlobular emphysema; I35.0 Nonrheumatic aortic (valve) stenosis; K21.9 Gastro-esophageal reflux disease without esophagitis; C61 Malignant neoplasm of prostate; R68.0 Hypothermia, not associated with low environmental temperature; F43.12 Post-traumatic stress disorder, chronic; T76.31XA Adult psychological abuse, suspected, initial encounter; G40.309 Generalized idiopathic epilepsy and epileptic syndromes, not intractable, without status epilepticus; I12.9 Hypertensive chronic kidney disease with stage 1 through stage 4 chronic kidney disease, or unspecified chronic kidney disease; N18.3 Chronic kidney disease, stage 3 (moderate); I25.10 Atherosclerotic heart disease of native coronary artery without angina pectoris; K44.9 Diaphragmatic hernia without obstruction or gangrene; R91.1 Solitary pulmonary nodule; K57.30 Diverticulosis of large intestine without perforation or abscess without bleeding; E78.00 Pure hypercholesterolemia, unspecified; M19.90 Unspecified osteoarthritis, unspecified site; F32.9 Major depressive disorder, single episode, unspecified; D63.1 Anemia in chronic kidney disease; E11.22 Type 2 diabetes mellitus with diabetic chronic kidney disease; Z79.899 Other long term (current) drug therapy; Z96.652 Presence of left artificial knee joint; Z60.2 Problems related to living alone; Z87.891 Personal history of nicotine dependence; Z90.79 Acquired absence of other genital organ(s); Z82.49 Family history of ischemic heart disease and other diseases of the circulatory system
CPT/HCPCS: 36415; 51701; 51702; 70450; 71045; 71275; 72070; 72125; 74018; 74176; 80048; 80053; 81001; 82140; 82271; 82550; 82607; 82728; 82746; 82803; 82962; 83036; 83540; 83550; 83605; 83735; 83880; 84100; 84484; 85025; 85027; 85045; 87040; 87086; 93005; 93010; 94660; 96361; 96365; 96366; 96367; 96375; 99291; 99292; C1751; G8978-GP; G8979-GP; J0171; J0696; J1650; J1956; J2370; J2543; J3370; J3480; J3490; J7030; J7060; J7120; L0172

== ENCOUNTER 2018-01-07 13:07 | Emergency (ER) | payer MEDICARE, MEDICAID ==
[2018-01-07] MEDS ORDERED: OXYCODONE-ACETAMINOPHEN 5-325 MG TABLET PO ONE (14:25)
--- NOTE | 2018-01-07 16:02 | RADIOLOGY REPORT (SQ) ---
EXAM DESCRIPTION: SCAPULA LEFT COMPLETED DATE/TIME: 01/07/2018 2:51 pm REASON FOR STUDY: Fell and injured her left upper back COMPARISON: None. TECHNIQUE: Two views left scapula LIMITATIONS: None. FINDINGS: No fracture identified. No pneumothorax or rib fracture. Glenohumeral relationship appea rs preserved. IMPRESSION: No acute finding. TECHNICAL DOCUMENTATION: JOB ID: [id number] [place]-72 2010 [employer]- All Rights Reserved Reading location - IP/workstation name: [email or web address]
--- NOTE | 2018-01-07 16:05 | RADIOLOGY REPORT (SQ) ---
EXAM DESCRIPTION: CHEST 2 VIEWS COMPLETED DATE/TIME: 01/07/2018 2:51 pm REASON FOR STUDY: Fell on left shoulder and upper left back COMPARISON: 08/29/2017 TECHNIQUE: Frontal and lateral radiographic views of the chest acquired. NUMBER OF VIEWS: Two view. LIMITATIONS: None. FINDINGS: LUNGS AND PLEURA: No pneumothorax. Increased interstitial markings by a laterally, basila r predominance. No dense consolidation or significant pleural effusion. MEDIASTINUM AND HILAR STRUCTURES: Stable. HEART AND VASCULAR STRUCTURES: Stable. BONES: No acute findings. HARDWARE: None in the chest. OTHER: No other significant finding. IMPRESSION: Increased interstitial markings by a laterally, basilar predominance. No dense consolid ation or significant pleural effusion. TECHNICAL DOCUMENTATION: JOB ID: [id number] [place]-72 2010 [employer]- All Rights Reserved Reading location - IP/workstation name: [email or web address]
--- NOTE | 2018-01-07 17:25 | RADIOLOGY REPORT (SQ) ---
EXAM DESCRIPTION: CERV SP 4 OR 5 VIEWS COMPLETED DATE/TIME: 01/07/2018 2:51 pm REASON FOR STUDY: Fell on left shoulder/back COMPARISON: 03/28/2011. NUMBER OF VIEWS: Five views including obliques. TECHNIQUE: AP, lateral, obliques and odontoid radiographic images acquired of the cervical spine. LIMITATIONS: None. FINDINGS: MINERALIZATION: Normal. SEGMENTATION: Normal. ALIGNMENT: Normal. VERTEBRAE: Maintained height. No fracture or worrisome bone lesion. DISCS: Multilevel disc space narrowing with osteophytes. POSTERIOR ELEMENTS: Pedicles and facets are intact. No posterior arch defects. Facet arthropathy is present. FORAMINA: Narrowed at the levels of maximal disc and facet disease. HARDWARE: None in the spine. PARASPINAL SOFT TISSUES: Normal. OTHER: No other significant finding. IMPRESSION: SPONDYLOSIS WITHOUT BONE LESION OR FRACTURE. TECHNICAL DOCUMENTATION: JOB ID: [id number] [employer]- All Rights Reserved Reading location - IP/workstation name: [email or web address]
--- NOTE | 2018-01-07 17:58 | ER Document Report ---
ED Fall - General Chief Complaint: Fall Injury Stated Complaint: FALL Time Seen by Provider: 01/07/18 14:25 Notes: Patient reportedly fell last night and is now complaining of pain in the left neck left upper back and superior left clavicular region. He is able to walk. Family member says that he is falling a lot lately. Denies any loss of consciousness. Never had a stroke. No neurologic deficits. Patient denies any difficulty breathing or shortness of breath. Denies any abdominal pains. Able to move all 4 extremities equally and symmetrically. PMH: Depression and hypertension. Former smoker. TRAVEL OUTSIDE OF THE [place] IN LAST 30 DAYS: No - Related data Allergies/Adverse Reactions: No Known Allergies Allergy (Verified 08/30/17 11:37) Past Medical History - Social History Smoking Status: Former Smoker Chew tobacco use (# tins/day): No Frequency of alcohol use: None Drug Abuse: None Family History: Reviewed & Not Pertinent, CAD, Hyperlipidemia, Hypertension Patient has suicidal ideation: No Patient has homicidal ideation: No - Past Medical History Cardiac Medical History: Reports: Hx Hypercholesterolemia, Hx Hypertension, Hx Heart Murmur - 2012 aortic stenosis with [id number] Pulmonary Medical History: Reports: Hx COPD - 2008 fev1=27%. 2012 bullae Denies: Hx Asthma Neurological Medical History: Reports: Hx Seizures - until 1990 Malignancy Medical History: Reports Hx Prostate Cancer GI Medical History: Reports: Hx Gastroesophageal Reflux Disease Musculoskeletal Medical History: Reports Hx Arthritis Psychiatric Medical History: Reports: Hx Depression - When six years ago. Unsure if he still take antidepressant Past Surgical History: Reports: Hx Orthopedic Surgery - L Knee Replacement, Other - 1993 Prostatectomy cataracts - Immunizations Immunizations up to date: Yes Hx Diphtheria, Pertussis, Tetanus Vaccination: Yes Hx Pneumococcal Vaccination: 12/18/13 Review of Systems - Review of Systems Notes: REVIEW OF SYSTEMS: CONSTITUTIONAL : Denies fever. EENT: Denies eye, ear, nose or mouth or throat pain or other symptoms. CARDIOVASCULAR: Denies chest pain. RESPIRATORY: Denies cough, chest congestion, or shortness of breath. GASTROINTESTINAL: Denies abdominal pain or nausea, vomiting, or diarrhea. GENITOURINARY: Denies difficulty or painful urinating, urinary frequency, blood in urine. MUSCULOSKELETAL: See HPI. SKIN: Denies rash or skin lesions. NEUROLOGICAL: Denies LOC or altered mental status. Denies headache. Denies sensory loss or motor deficits. ALL OTHER SYSTEMS REVIEWED AND NEGATIVE. Physical Exam - Vital signs Interpretation: Normal Notes: PHYSICAL EXAMINATION: GENERAL: Well-appearing, in no acute distress. Speaks Arabic very well, but I also conversed with him in Italian. HEAD: Atraumatic, normocephalic. EYES: Pupils equal round and reactive to light, extraocular movements intact. ENT: oropharynx clear without exudates. Moist mucous membranes. NECK: Tender to press left side of neck. No tenderness over the posterior spinous processes.. LUNGS: Breath sounds clear and equal bilaterally. Tender upper most portion of the left back HEART: Regular rate and rhythm without murmurs. ABDOMEN: Soft, nontender. No guarding or rebound. No masses. BACK: No tenderness throughout entire back. EXTREMITIES: Normal range of motion without pain. Left shoulder in proper alignment without evidence of dislocation clinically. NEUROLOGICAL: Normal speech, normal gait. Normal sensory, motor, and reflex exams. Awake, alert, and oriented x3. PSYCH: Normal mood, normal affect. SKIN: Warm, dry, no rashes. Course - Re-evaluation Re-evalutation: 01/07/18 18:18 I spoke with this patient's step daughter, Anika Cornelius who told me that the patient has an appointment to see Dr. Alves Monday. I advised her of the questionable findings on the patient's chest x-ray. I then called Dr. Alves and told him about the x-ray as well, suggesting he follow the patient's chest x -ray or do other imaging to determine if the findings on the chest x-ray are of any clinical significance. Dr. Alves agrees to follow-up this issue when he sees him on Monday. - Diagnostic Test Radiology reviewed: Image reviewed, Reports reviewed - X-rays of the C-spine, scapula, and chest x-ray showed no rib fractures and no bone fractures and no acute abnormality. Patient is noted to have increased interstitial markings by a laterally basilar prominence. I spoke with the radiologist who says he does not think this is a malignancy, most likely interstitial markings. Discharge - Discharge Clinical Impression: Fall, Multiple contusions Condition: Stable Disposition: HOME, SELF-CARE Additional Instructions: NECK INJURY (CERVICAL STRAIN): You have a neck strain. This is an injury to the muscles and ligaments in the neck. There is no evidence of a fracture of the neck bones. Also, no injury to the spinal cord or nerve roots was detected. Usually, stiffness and pain INCREASE for the first 24-48 hours after the injury. The pain will gradually resolve and the neck will become more mobile. Most patients are back at work or school within a few days. Typically, complete healing takes about two or three weeks. The usual initial treatment is rest and cold packs. A neck collar may be placed to keep the muscles of the neck at rest. Antiinflammatory and muscle relaxing medication are often used to reduce the spasm and irritation. You should call the doctor, or go to the hospital, if you develop numbness or weakness in any extremity, problems with your bladder or bowel, or pain radiating down the arms. CONTUSION: Your injury has resulted in a contusion -- a crushing of the deep tissues. No injury to important structures was detected during the physician's exam. Contusions vary in the amount of pain they cause, and in the length of time required for healing. Typically, the area will become bruised, and will remain painful to touch for two or three weeks. However, most patients are back to working and playing within a few days. After the initial period of rest and cold-packs, your symptoms (together with the doctor's recommendations) will determine how rapidly you can get back to full activity. Usually this means "do what feels okay, but don't do things that hurt." If re-examination was recommended, it's important to follow up as instructed. Call the doctor or return any time if pain increases, if swelling becomes severe, if you develop numbness or weakness in an injured extremity, or if any other alarming symptoms occur. ORAL NARCOTIC MEDICATION: You have been given a prescription for pain control. This medication is a narcotic. It's best taken with food, as nausea can result if taken on an empty stomach. Don't operate machinery or drive within six hours of taking this medication. Do not combine this medicine with alcohol, or with any medication which can cause sedation (such as cold tablets or sleeping pills) unless you get permission from the physician. Narcotics tend to cause constipation. If possible, drink plenty of fluids and eat a diet high in fiber and fruits. FOLLOW-UP CARE: If you have been referred to a physician for follow-up care, call the physician s office for an appointment as you were instructed or within the next two days. If you experience worsening or a significant change in your symptoms, notify the physician immediately or return to the Emergency Department at any time for re-evaluation. Your x-rays did not show any broken bones. On your chest x-ray there is a slight prominence of markings in the right base of the lung which has nothing to do with your fall and injuries to your left neck and shoulder. It is uncertain what this represents, but it needs further follow-up. I have spoken with Dr. Alves, and he is aware of this x-ray report and will follow this condition when he sees you on Monday for your scheduled appointment. You have an appointment to see Dr. Alves Monday in his office. Keep that appointment. Prescriptions: Oxycodone HCl/Acetaminophen [Percocet 5-325 mg Tablet] 1 tab PO Q6HP PRN #10 tablet PRN Reason: Referrals: CLAUDIA ALVES MD [Primary Care Provider] - 01/09/18
[2018-01-07 18:06] VITALS: BP 145/70
== END 2018-01-07 19:09 | disposition home or self-care (01) ==
LOC: ER 13:07
DX: M54.2 Cervicalgia (principal); M54.6 Pain in thoracic spine; M25.512 Pain in left shoulder; W19.XXXA Unspecified fall, initial encounter; E78.00 Pure hypercholesterolemia, unspecified; I10 Essential (primary) hypertension; J44.9 Chronic obstructive pulmonary disease, unspecified; Z96.652 Presence of left artificial knee joint
CPT/HCPCS: 99283; 72050; 71046; 73010; A9270

== ENCOUNTER 2018-03-15 13:50 | Observation (INO) | payer MEDICARE, MEDICAID ==
[2018-03-15] MEDS ORDERED: ASPIRIN 81 MG TABLET, CHEWABLE PO ONE (14:06)
--- NOTE | 2018-03-15 14:26 | RADIOLOGY REPORT (SQ) ---
EXAM DESCRIPTION: CHEST SINGLE VIEW COMPLETED DATE/TIME: 03/15/2018 2:17 pm REASON FOR STUDY: cp COMPARISON: 01/07/2018 EXAM PARAMETERS: NUMBER OF VIEWS: One view. TECHNIQUE: Single frontal radiographic view of the chest acquired. RADIATION DOSE: NA LIMITATIONS: None. FINDINGS: LUNGS AND PLEURA: No opacities, masses or pneumothorax. No pleural effusion. MEDIASTINUM AND HILAR STRUCTURES: Considerable hiatal hernia. HEART AND VASCULAR STRUCTURES: Heart size is normal. There is ectasia of the ascending aorta. BONES: No acute findings. HARDWARE: None in the chest. OTHER: No other significant finding. IMPRESSION: Hiatal hernia. Ectasia of the ascending aorta. TECHNICAL DOCUMENTATION: JOB ID: [id number] [employer]- All Rights Reserved Reading location - IP/workstation name: [email or web address]
[2018-03-15 14:37] LABS: ALANINE AMINOTRANSFERASE 11 U/L (21-72); ALBUMIN 4.6 g/dL (3.5-5.0); ALKALINE PHOSPHATASE 46 U/L (38-126); ANION GAP 9 (5-19); ASPARTATE AMINO TRANSFERASE 26 U/L (17-59); BILIRUBIN,DIRECT 0.3 mg/dL (0.0-0.4); BILIRUBIN,TOTAL 0.7 mg/dL (0.2-1.3); BLOOD UREA NITROGEN 28 mg/dL (7-20); CALCIUM 10.2 mg/dL (8.4-10.2); CARBON DIOXIDE 28 mmol/L (22-30); CHLORIDE 104 mmol/L (98-107); CREATINE KINASE 104 U/L (55-170); GLUCOSE 114 mg/dL (75-110); POTASSIUM 4.1 mmol/L (3.6-5.0); SODIUM 141.3 mmol/L (137-145); TOTAL PROTEIN 8.1 g/dL (6.3-8.2)
[2018-03-15 14:38] LABS: HEMATOCRIT 34.9 % (37.9-51.0); HEMOGLOBIN 11.5 g/dL (13.5-17.0); MEAN CORPUSCULAR VOLUME 91 fl (80-97); PLATELET COUNT 258 10^3/uL (150-450); RED BLOOD COUNT 3.85 10^6/uL (4.35-5.55); RED CELL DISTRIBUTION WIDTH 20.9 % (11.5-14.0); WHITE BLOOD COUNT 4.3 10^3/uL (4.0-10.5)
[2018-03-15 14:50] LABS: CREATINE KINASE MB 0.52 ng/mL (<4.55); TROPONIN I < 0.012 ng/mL
[2018-03-15 15:15] LABS: ABSOLUTE LYMPHOCYTES# (MANUAL) 1.4 10^3/uL (0.5-4.7); ABSOLUTE MONOCYTES # (MANUAL) 0.4 10^3/uL (0.1-1.4); EOSINOPHILS % (MANUAL) 14 % (0-6); LYMPHOCYTES % (MANUAL) 31 % (13-45); MONOCYTES % (MANUAL) 10 % (3-13); TOTAL CELLS COUNTED 100
[2018-03-15 15:22] LABS: ABSOLUTE NEUTROPHILS# (MANUAL) 1.8 10^3/uL (1.7-8.2); BASOPHILS % (MANUAL) 2 % (0-2); SEGMENTED NEUTROPHILS % (MAN) 42 % (42-78)
[2018-03-15 15:23] LABS: ANISOCYTOSIS 2+; OVALOCYTES SLIGHT; PLATELET COMMENT ADEQUATE; PLATELET LARGE PRESENT; POIKILOCYTOSIS SLIGHT; POLYCHROMASIA SLIGHT; TOXIC GRANULATION SLIGHT
[2018-03-15] MEDS ORDERED: NORMAL SALINE 500 ML IV ONE (15:40)
--- NOTE | 2018-03-15 15:42 | ER Document Report ---
ED General - General Chief Complaint: Chest Pain Stated Complaint: CHEST PAIN Time Seen by Provider: 03/15/18 14:47 Mode of Arrival: Medic Information source: Patient Notes: History is Via Pedrito (manager of learning). This is a 77-year-old man with a history of hypertension, chronic kidney disease who was brought in by EMS after a syncopal event at home. Patient states he was taking out a mattress out of his house with 1 of his neighbors when he developed generalized weakness, diaphoresis and had a syncopal episode. Patient does report having some chest pain after the event. He was chest pain-free by the time he arrived in the emergency room. TRAVEL OUTSIDE OF THE [place] IN LAST 30 DAYS: No - HPI Onset: Just prior to arrival Onset/Duration: Sudden Quality of pain: No pain Severity: None Pain Level: Denies Associated symptoms: Chest pain. denies: Fever, Shortness of breath Exacerbated by: Denies Relieved by: Denies Similar symptoms previously: Yes Recently seen / treated by doctor: No - Related Data Allergies/Adverse Reactions: No Known Allergies Allergy (Verified 01/07/18 18:14) Past Medical History - General Information source: Patient - Social History Smoking Status: Former Smoker Cigarette use (# per day): No Chew tobacco use (# tins/day): No Frequency of alcohol use: None Drug Abuse: None Lives with: Family Family History: Reviewed & Not Pertinent, CAD, Hyperlipidemia, Hypertension Patient has suicidal ideation: No Patient has homicidal ideation: No - Past Medical History Cardiac Medical History: Reports: Hx Hypercholesterolemia, Hx Hypertension, Hx Heart Murmur - 2012 aortic stenosis with [id number] Denies: Hx Atrial Fibrillation, Hx Congestive Heart Failure, Hx Heart Attack Pulmonary Medical History: Reports: Hx COPD - 2008 fev1=27%. 2012 bullae Denies: Hx Asthma Neurological Medical History: Reports: Hx Seizures - until 1990 Renal/ Medical History: Denies: Hx Peritoneal Dialysis Malignancy Medical History: Reports Hx Prostate Cancer GI Medical History: Reports: Hx Gastroesophageal Reflux Disease. Denies: Hx Hiatal Hernia, Hx Ulcer Musculoskeletal Medical History: Reports Hx Arthritis Psychiatric Medical History: Reports: Hx Depression - When six years ago. Unsure if he still take antidepressant Past Surgical History: Reports: Hx Orthopedic Surgery - L Knee Replacement, Other - 1993 Prostatectomy cataracts. Denies: Hx Open Heart Surgery - Immunizations Immunizations up to date: Yes Hx Diphtheria, Pertussis, Tetanus Vaccination: Yes Hx Pneumococcal Vaccination: 12/18/13 Review of Systems - Review of Systems Constitutional: denies: Chills, Fever EENT: No symptoms reported Cardiovascular: See HPI, Chest pain, Palpitations, Syncope Respiratory: No symptoms reported Gastrointestinal: No symptoms reported Genitourinary: No symptoms reported Male Genitourinary: No symptoms reported Musculoskeletal: No symptoms reported Skin: No symptoms reported Hematologic/Lymphatic: No symptoms reported Neurological/Psychological: No symptoms reported Physical Exam - Vital signs Vitals: Pulse Ox 96 03/15/18 14:06 Notes: Physical exam: GENERAL: Patient is alert and oriented x3, no acute distress HEAD: Atraumatic, normocephalic. EYES: Pupils equal round and reactive to light, extraocular movements intact, sclera anicteric, conjunctiva are normal. ENT: TMs normal, nares patent, oropharynx clear without exudates. Moist mucous membranes. NECK: Normal range of motion, supple without obvious mass or JVD. LUNGS: Breath sounds clear to auscultation bilaterally and equal. No wheezes rales or rhonchi. HEART: Regular rate and rhythm without murmurs, rubs or gallops. ABDOMEN: Soft, normoactive bowel sounds. No tenderness to palpation. No guarding, no rebound. No masses appreciated. EXTREMITIES: Normal range of motion, no pitting or edema. No clubbing or cyanosis. NEUROLOGICAL: Cranial nerves II through XII grossly intact. Normal speech, moving all extremities. PSYCH: Normal mood, normal affect. SKIN: Warm, Dry, normal turgor, no rashes or lesions noted. Course - Vital Signs Vital signs: Temp Pulse Resp BP Pulse Ox 22 H 141/67 H 97 03/15/18 19:00 03/15/18 15:01 03/15/18 19:00 - Laboratory Result Diagrams: 03/15/18 13:36 03/15/18 13:36 Laboratory results interpreted by me: 03/15/18 03/15/18 13:36 13:36 RBC 3.85 L Hgb 11.5 L Hct 34.9 L RDW 20.9 H Eosinophils % (Manual) 14 H BUN 28 H Creatinine 2.15 H Est GFR ( Amer) 36 L Est GFR (Non-Af Amer) 30 L Glucose 114 H ALT 11 L - Diagnostic Test Radiology reviewed: Image reviewed, Reports reviewed - Chest x-ray shows no infiltrates - EKG Interpretation by Me Rate: Normal Rhythm: NSR - EKG shows normal sinus rhythm with a ventricular rate of 75, left anterior hemiblock, no acute ST-T wave changes Discharge - Discharge Clinical Impression: Syncope, Chest pain Condition: Stable Disposition: ADMITTED OBSERVATION Admitting Provider: Gross Unit Admitted: Telemetry
--- NOTE | 2018-03-15 16:22 | RADIOLOGY REPORT (SQ) ---
EXAM DESCRIPTION: CT HEAD WITHOUT COMPLETED DATE/TIME: 03/15/2018 4:12 pm REASON FOR STUDY: syncope COMPARISON: 08/29/2017. TECHNIQUE: Axial images acquired through the brain without intravenous contrast. Images reviewed wi th bone, brain and subdural windows. Additional sagittal and coronal reconstructions were generated. Images stored on PACS. All CT scanners at this facility use dose modulation, iterative reconstruction, and/or weight based d osing when appropriate to reduce radiation dose to as low as reasonably achievable (ALARA). [facility]: Dose Right [facility]: CareDose [facility]: Dose Right [facility]: Teradose 4D [facility]: Smart Prong RADIATION DOSE: CT Rad equipment meets quality standard of care and radiation dose reduction techniq ues were employed. CTDIvol: 53.2 mGy. DLP: 991 mGy-cm.mGy. LIMITATIONS: None. FINDINGS: VENTRICLES: Prominent. CEREBRUM: No masses. No hemorrhage. No midline shift. Areas of low density in the white matter mos t likely due to chronic micro-vascular ischemic change. No evidence for acute infarction. CEREBELLUM: No masses. No hemorrhage. No alteration of density. No evidence for acute infarction. EXTRAAXIAL SPACES: Age-related involutional change. No fluid collections. No masses. ORBITS AND GLOBE: No intra- or extraconal masses. Normal contour of globe without masses. CALVARIUM: No fracture. PARANASAL SINUSES: No fluid or mucosal thickening. SOFT TISSUES: No mass or hematoma. OTHER: No other significant finding. IMPRESSION: CHRONIC CHANGES OF ATROPHY AND MICROVASCULAR ISCHEMIA. NO ACUTE PROCESS. EVIDENCE OF ACUTE STROKE: NO. TECHNICAL DOCUMENTATION: JOB ID: [id number] Quality ID # [id number]: Final reports with documentation of one or more dose reduction techniques (e.g., Au tomated exposure control, adjustment of the mA and/or kV according to patient size, use of iterative reconstruction technique) 2010 [employer]- All Rights Reserved Reading location - IP/workstation name: [email or web address]
[2018-03-16 00:08] VITALS: BP 158/69
--- NOTE | 2018-03-16 07:56 | EKG REPORT ---
SEVERITY:- NORMAL ECG - SINUS RHYTHM : Confirmed by: Ramy Valenzuela MD 16-Mar-2018 07:55:57
--- NOTE | 2018-03-16 08:01 | PDOC H&P ---
History of Present Illness Admission Date/PCP: 03/15/18 17:46 CLAUDIA ALVES MD Patient complains of: syncope History of Present Illness: NELIDA MARTEL is a 77 year old male who passed out carrying mattress because of bed bugs and had chest pain that was gone when he got to ER. In 2006 he had syncope but missed bag liner consult. In 2011 he had it again. CT showed small vessel disease. Doppler and eeg were negative. In 2012 ar was moderate gradient was 38=1cm2. Dr Mendez got gradient 33. Cardiolyte and 96h monitor were negative. In september I diagnosed alzheimers. In january he was looking for his . He has not filled a prescription since july by [facility] in spite of recent office refills. I have advocated to his family repeatedly for more supervision than living alone can afford. Past Medical History Cardiac Medical History: Reports: Hyperlipidema, Hypertension, Heart Murmur - 2012 aortic stenosis with Denies: Atrial Fibrillation, Congestive Heart Failure, Myocardial Infarction Pulmonary Medical History: Reports: Chronic Obstructive Pulmonary Disease (COPD) - 2008 fev1=27%. 2012 bullae Denies: Asthma Neurological Medical History: Reports: Seizures - until 1990 Renal/ Medical History: Reports: Chronic Kidney Disease GI Medical History: Reports: Gastroesophageal Reflux Disease Denies: Hiatal Hernia Musculoskeltal Medical History: Reports: Arthritis Psychiatric Medical History: Reports: Depression - When six years ago. Unsure if he still take antidepressant Hematology: Reports: Anemia - 2001 anemic chronic disease with [id number] Denies: Sickle Cell Disease Past Surgical History Past Surgical History: Reports: Orthopedic Surgery - L Knee Replacement, Other - 1993 Prostatectomy cataracts Social History Information Source: Dr. Call Lives with: Alone Smoking Status: Unknown if Ever Smoked Frequency of Alcohol Use: None Hx Recreational Drug Use: No Drugs: None Hx Prescription Drug Abuse: No - Advance Directive Resuscitation Status: Full Code Family History Family History: CAD, Hyperlipidemia, Hypertension Parental Family History Reviewed: Yes Children Family History Reviewed: Yes Sibling(s) Family History Reviewed.: Yes Medication/Allergy Home Medications: No Home Medications 03/15/18 Allergies/Adverse Reactions: No Known Allergies Allergy (Verified 01/07/18 18:14) Review of Systems ROS unobtainable: Due to mental status Constitutional: PRESENT: headache(s). ABSENT: fever(s) Nose, Mouth, and Throat: PRESENT: sore throat Cardiovascular: PRESENT: chest pain, dyspnea on exertion. ABSENT: orthropnea Respiratory: PRESENT: cough. ABSENT: sputum Gastrointestinal: ABSENT: abdominal pain, constipation, diarrhea, hematemesis, hematochezia, vomiting Genitourinary: ABSENT: dysuria, hematuria Integumentary: ABSENT: rash Physical Exam Vital Signs: Temp Pulse Resp BP Pulse Ox 22 H 141/67 H 97 03/15/18 19:00 03/15/18 15:01 03/15/18 19:00 Intake & Output 03/14/18 03/15/18 03/16/18 07:59 07:59 07:59 Weight 129 lb 13.636 oz General appearance: PRESENT: no acute distress Mouth exam: PRESENT: moist, neck supple Neck exam: ABSENT: lymphadenopathy, tenderness, thyromegaly, tracheal deviation Respiratory exam: PRESENT: clear to auscultation bentley Cardiovascular exam: ABSENT: diastolic murmur, irregular rhythm, systolic murmur GI/Abdominal exam: ABSENT: mass, organolmegaly, tenderness Extremities exam: ABSENT: pedal edema Neurological exam: PRESENT: oriented to time. ABSENT: oriented to situation Psychiatric exam: PRESENT: appropriate affect Results Laboratory Results: Abnormal - 24 hr 03/15/18 03/15/18 13:36 13:36 RBC 3.85 L Hgb 11.5 L Hct 34.9 L RDW 20.9 H Eosinophils % (Manual) 14 H BUN 28 H Creatinine 2.15 H Est GFR ( Amer) 36 L Est GFR (Non-Af Amer) 30 L Glucose 114 H ALT 11 L Impressions: Chest X-Ray 03/15/18 14:06 IMPRESSION: Hiatal hernia. Ectasia of the ascending aorta. Head CT 03/15/18 15:40 IMPRESSION: CHRONIC CHANGES OF ATROPHY AND MICROVASCULAR ISCHEMIA. NO ACUTE PROCESS. EVIDENCE OF ACUTE STROKE: NO. Assessment & Plan - Diagnosis (1) Syncope Qualifiers: Syncope type: unspecified Qualified Code(s): R55 - Syncope and collapse Is this a current diagnosis for this admission?: Yes Plan: recurrent. Stop lisinopril (2) Nonrheumatic aortic valve stenosis Is this a current diagnosis for this admission?: Yes (3) Essential (primary) hypertension Is this a current diagnosis for this admission?: Yes (4) Alzheimer's disease with late onset Qualifiers: Dementia behavioral disturbance: without behavioral disturbance Qualified Code(s): G30.1 - Alzheimer's disease with late onset; F02.80 - Dementia in other diseases classified elsewhere without behavioral disturbance Is this a current diagnosis for this admission?: Yes (5) Chest pain Qualifiers: Chest pain type: precordial pain Qualified Code(s): R07.2 - Precordial pain Is this a current diagnosis for this admission?: Yes Plan: troponins - Inpatient Certification Based on my medical assessment, after consideration of the patient's comorbidities, presenting symptoms, or acuity I expect that the services needed warrant INPATIENT care.: Yes I certify that my determination is in accordance with my understanding of Medicare's requirements for reasonable and necessary INPATIENT services [42 CFR 412.3e].: Yes Medical Necessity: Failure to Improve With Outpatient Therapy, Significant Comorbidiites Make Outpatient Treatment Too Risky, Need Close Monitoring Due to Risk of Patient Decompensation, Need For Continuous Telemetry Monitoring, Risk of Complication if Not Cared For in Hospital, Risk of Diagnosis Which Will Require Inpatient Eval/Care/Monitoring
--- NOTE | 2018-03-16 08:06 | PDOC DISCHARGE SUMMARY ---
General - Admit/Disc Date/PCP Admission Date/Primary Care Provider: 03/15/18 17:46 CLAUDIA ALVES MD Discharge Date: 03/16/18 - Discharge Diagnosis (1) Syncope Is this a current diagnosis for this admission?: Yes (2) Nonrheumatic aortic valve stenosis Is this a current diagnosis for this admission?: Yes (3) Essential (primary) hypertension Is this a current diagnosis for this admission?: Yes (4) Alzheimer's disease with late onset Is this a current diagnosis for this admission?: Yes (5) Chest pain Is this a current diagnosis for this admission?: Yes - Additional Information Resuscitation Status: Full Code Discharge Diet: Regular Discharge Activity: Activity As Tolerated Home Medications: No Home Medications 03/15/18 History of Present Illness History of Present Illness: NELIDA MARTEL is a 77 year old male who passed out carrying mattress because of bed bugs and had chest pain that was gone when he got to ER. In 2006 he had syncope but missed hospice registered nurse consult. In 2011 he had it again. CT showed small vessel disease. Doppler and eeg were negative. In 2012 ar was moderate gradient was 38=1cm2. Dr Mendez got gradient 33. Cardiolyte and 96h monitor were negative. In september I diagnosed alzheimers. In january he was looking for his . He has not filled a prescription since july by [facility] in spite of recent office refills. I have advocated to his family repeatedly for more supervision than living alone can afford. Hospital Course Hospital Course: 3 troponins were undetectable. Ekg was normal. Bedbugs were captured in ER. Physical Exam Vital Signs: Temp Pulse Resp BP Pulse Ox 97.8 F 78 16 158/69 H 99 03/15/18 23:54 03/16/18 07:00 03/15/18 23:54 03/15/18 23:54 03/15/18 23:54 Intake & Output 03/15/18 03/16/18 03/17/18 07:59 07:59 07:59 Output Total 825 Balance -825 Weight 129 lb 13.636 oz General appearance: PRESENT: no acute distress Mouth exam: PRESENT: moist, neck supple Neck exam: ABSENT: lymphadenopathy, tenderness, thyromegaly, tracheal deviation Respiratory exam: PRESENT: clear to auscultation bentley Cardiovascular exam: ABSENT: diastolic murmur, irregular rhythm, systolic murmur GI/Abdominal exam: ABSENT: mass, organolmegaly, tenderness Extremities exam: ABSENT: pedal edema Neurological exam: PRESENT: oriented to time Psychiatric exam: PRESENT: appropriate affect Results Laboratory Results: 03/15/18 13:36 03/15/18 13:36 03/15/18 03/15/18 13:36 13:36 WBC 4.3 RBC 3.85 L Hgb 11.5 L Hct 34.9 L MCV 91 MCH 30.0 MCHC 33.0 RDW 20.9 H Plt Count 258 Seg Neutrophils % Not Reportable Lymphocytes % Not Reportable Monocytes % Not Reportable Eosinophils % Not Reportable Basophils % Not Reportable Absolute Neutrophils Not Reportable Absolute Lymphocytes Not Reportable Absolute Monocytes Not Reportable Absolute Eosinophils Not Reportable Absolute Basophils Not Reportable Sodium 141.3 Potassium 4.1 Chloride 104 Carbon Dioxide 28 Anion Gap 9 BUN 28 H Creatinine 2.15 H Est GFR ( Amer) 36 L Est GFR (Non-Af Amer) 30 L Glucose 114 H Calcium 10.2 Total Bilirubin 0.7 AST 26 ALT 11 L Alkaline Phosphatase 46 Total Protein 8.1 Albumin 4.6 03/15/18 03/15/18 03/15/18 13:36 13:36 19:35 Creatine Kinase 104 CK-MB (CK-2) 0.52 Troponin I < 0.012 < 0.012 03/16/18 01:04 Creatine Kinase CK-MB (CK-2) Troponin I < 0.012 Impressions: Chest X-Ray 03/15/18 14:06 IMPRESSION: Hiatal hernia. Ectasia of the ascending aorta. Head CT 03/15/18 15:40 IMPRESSION: CHRONIC CHANGES OF ATROPHY AND MICROVASCULAR ISCHEMIA. NO ACUTE PROCESS. EVIDENCE OF ACUTE STROKE: NO. Qualifiers - * PATIENT BEING DISCHARGED WITH ANY OF THE FOLLOWING DIAGNOSIS: No Plan Discharge Plan: home
== END 2018-03-16 10:30 | disposition home or self-care (01) ==
LOC: ER 13:50 → EH 17:46 → 4S 20:11
PROVIDERS: ADMIT Family Medicine; ATTEND Family Medicine
DX: R55 Syncope and collapse (principal); I35.0 Nonrheumatic aortic (valve) stenosis; G30.1 Alzheimer's disease with late onset; F02.80 Dementia in other diseases classified elsewhere, unspecified severity, without behavioral disturbance, psychotic disturbance, mood disturbance, and anxiety; R07.2 Precordial pain; I12.9 Hypertensive chronic kidney disease with stage 1 through stage 4 chronic kidney disease, or unspecified chronic kidney disease; N18.9 Chronic kidney disease, unspecified; J02.9 Acute pharyngitis, unspecified; R06.09 Other forms of dyspnea; R05 Cough; R53.1 Weakness; R00.2 Palpitations; Z23 Encounter for immunization; Z60.2 Problems related to living alone; Z86.69 Personal history of other diseases of the nervous system and sense organs; Z82.49 Family history of ischemic heart disease and other diseases of the circulatory system; Z96.652 Presence of left artificial knee joint; Z87.891 Personal history of nicotine dependence
CPT/HCPCS: 99285; 96360; 36415 ×2; 82553; 82550; 85025; 80053; 84484 ×2; 71045; 70450; 90686; 93005; 93010; G0378 ×3; G0008; A9270; J7040; 90471

== ENCOUNTER 2018-03-21 16:03 | Inpatient (IN) | payer MEDICARE, MEDICAID ==
[2018-03-21 16:55] LABS: ABSOLUTE BASOPHILS # (AUTO) 0.1 10^3/uL (0.0-0.2); ABSOLUTE EOSINOPHILS # (AUTO) 0.4 10^3/uL (0.0-0.6); ABSOLUTE MONOCYTES (AUTO) 0.6 10^3/uL (0.1-1.4); ABSOLUTE NEUT (AUTO) 1.9 10^3/uL (1.7-8.2); BASOPHILS % (AUTO) 1.9 % (0-2); EOSINOPHILS % (AUTO) 6.5 % (0-6); HEMATOCRIT 33.6 % (37.9-51.0); HEMOGLOBIN 11.3 g/dL (13.5-17.0); LYMPHOCYTES % (AUTO) 49.3 % (13-45); MEAN CORPUSCULAR HEMOGLOBIN 30.3 pg (27.0-33.4); MEAN CORPUSCULAR HGB CONC 33.7 g/dL (32.0-36.0); MEAN CORPUSCULAR VOLUME 90 fl (80-97); MONOCYTES % (AUTO) 10.2 % (3-13); PLATELET COUNT 263 10^3/uL (150-450); RED BLOOD COUNT 3.73 10^6/uL (4.35-5.55); RED CELL DISTRIBUTION WIDTH 20.1 % (11.5-14.0); SEGMENTED NEUTROPHILS % (AUTO) 32.1 % (42-78); TOTAL CELLS COUNTED % (AUTO) 100 %
[2018-03-21 17:15] LABS: ALANINE AMINOTRANSFERASE 8 U/L (21-72); ALBUMIN 4.8 g/dL (3.5-5.0); ALKALINE PHOSPHATASE 59 U/L (38-126); ANION GAP 11 (5-19); ASPARTATE AMINO TRANSFERASE 26 U/L (17-59); BILIRUBIN,DIRECT 0.3 mg/dL (0.0-0.4); BILIRUBIN,TOTAL 0.6 mg/dL (0.2-1.3); BLOOD UREA NITROGEN 20 mg/dL (7-20); CARBON DIOXIDE 21 mmol/L (22-30); CHLORIDE 106 mmol/L (98-107); CREATINE KINASE 176 U/L (55-170); GLUCOSE 167 mg/dL (75-110); SODIUM 138.3 mmol/L (137-145); TOTAL PROTEIN 8.2 g/dL (6.3-8.2)
[2018-03-21 17:19] LABS: ANISOCYTOSIS 2+; OVALOCYTES 1+; POIKILOCYTOSIS 2+; POLYCHROMASIA SLIGHT; SCHISTOCYTES SLIGHT; TARGET CELLS SLIGHT
[2018-03-21 17:20] LABS: PLATELET COMMENT ADEQUATE
[2018-03-21 17:24] LABS: POTASSIUM 2.9 mmol/L (3.6-5.0)
[2018-03-21 17:25] LABS: TROPONIN I < 0.012 ng/mL
[2018-03-21 17:32] LABS: APPEARANCE,URINE CLEAR; BILIRUBIN,URINE NEGATIVE (NEGATIVE); COLOR,URINE YELLOW; GLUCOSE, URINE NEGATIVE (NEGATIVE); KETONES,URINE NEGATIVE (NEGATIVE); LEUKOCYTE ESTERASE,URINE TRACE (NEGATIVE); NITRITE,URINE NEGATIVE (NEGATIVE); PROTEIN,URINE 30 mg/dL (NEGATIVE); URINE SPECIFIC GRAVITY 1.015; UROBILINOGEN,URINE NEGATIVE mg/dL (<2.0)
--- NOTE | 2018-03-21 17:58 | EKG REPORT ---
SEVERITY:- ABNORMAL ECG - SINUS RHYTHM CONSIDER LEFT VENTRICULAR HYPERTROPHY PROLONGED QT INTERVAL : Confirmed by: Babar Bustamante 21-Mar-2018 17:57:52
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
[2018-03-21] MEDS ORDERED: NORMAL SALINE 1000 ML 1,000 ML IV ONE (19:03)
[2018-03-21] MEDS ORDERED: PIPERACILLIN/TAZOBACTAM 4.5 GM VIAL IV ONE (19:03)
--- NOTE | 2018-03-21 19:12 | RADIOLOGY REPORT (SQ) ---
EXAM DESCRIPTION: CT HEAD WITHOUT COMPLETED DATE/TIME: 03/21/2018 6:48 pm REASON FOR STUDY: confusion, vomiting, altered mental status COMPARISON: 03/15/2018 TECHNIQUE: Axial images acquired through the brain without intravenous contrast. Images reviewed wi th bone, brain and subdural windows. Additional sagittal and coronal reconstructions were generated. Images stored on PACS. All CT scanners at this facility use dose modulation, iterative reconstruction, and/or weight based d osing when appropriate to reduce radiation dose to as low as reasonably achievable (ALARA). [facility]: Dose Right [facility]: CareDose [facility]: Dose Right [facility]: Teradose 4D [facility]: Solexant RADIATION DOSE: CT Rad equipment meets quality standard of care and radiation dose reduction techniq ues were employed. CTDIvol: 53.2 mGy. DLP: 1044 mGy-cm. mGy. LIMITATIONS: None. FINDINGS: VENTRICLES: Prominent ventricles secondary to involutional atrophy. CEREBRUM: No masses. No hemorrhage. No midline shift. No evidence for acute infarction. Areas of l ow density in the white matter most likely chronic small vessel ischemic changes. CEREBELLUM: No masses. No hemorrhage. No alteration of density. No evidence for acute infarction. EXTRAAXIAL SPACES: No fluid collections. No masses. ORBITS AND GLOBE: No intra- or extraconal masses. Normal contour of globe without masses. CALVARIUM: No fracture. PARANASAL SINUSES: No fluid or mucosal thickening. SOFT TISSUES: No mass or hematoma. OTHER: No other significant finding. IMPRESSION: MICROVASCULAR ISCHEMIA AND GENERALIZED ATROPHY. NO ACUTE IMAGING FINDINGS IN THE BRAIN EVIDENCE OF ACUTE STROKE: NO. COMMENT: Quality ID # [id number]: Final reports with documentation of one or more dose reduction techniques (e.g., Automated exposure control, adjustment of the mA and/or kV according to patient size, use of iterative reconstruction technique) TECHNICAL DOCUMENTATION: JOB ID: [id number] [employer]- All Rights Reserved Reading location - IP/workstation name: [email or web address]
--- NOTE | 2018-03-21 19:14 | RADIOLOGY REPORT (SQ) ---
EXAM DESCRIPTION: CHEST SINGLE VIEW COMPLETED DATE/TIME: 03/21/2018 7:02 pm REASON FOR STUDY: crackles RLL COMPARISON: 03/15/2018 EXAM PARAMETERS: NUMBER OF VIEWS: One view. TECHNIQUE: Single frontal radiographic view of the chest acquired. RADIATION DOSE: NA LIMITATIONS: None. FINDINGS: LUNGS AND PLEURA: No opacities, masses or pneumothorax. No pleural effusion. MEDIASTINUM AND HILAR STRUCTURES: No masses. Contour normal. HEART AND VASCULAR STRUCTURES: Heart size normal. There is ectasia of the ascending aorta. BONES: No acute findings. HARDWARE: None in the chest. OTHER: No other significant finding. IMPRESSION: Ectasia of the ascending aorta. No acute pulmonary findings. TECHNICAL DOCUMENTATION: JOB ID: [id number] [employer]- All Rights Reserved Reading location - IP/workstation name: [email or web address]
[2018-03-21 19:22] LABS: VENOUS BLOOD BASE EXCESS -2.5 mmol/L; VENOUS BLOOD PCO2 28.1 mmHg (35-63); VENOUS BLOOD PH 7.47 (7.30-7.42)
[2018-03-21 19:57] LABS: INTERNATIONAL RATION (INR) 1.07; PROTHROMBIN TIME 14.4 SEC (11.4-15.4)
--- NOTE | 2018-03-21 22:19 | RADIOLOGY REPORT (SQ) ---
CT ABDOMEN PELVIS WITH IV CONTRAST HISTORY: Vomiting, confusion, elevated lactic acid. COMPARISON: 08/30/2017 TECHNIQUE: CT scan of the abdomen and pelvis with IV contrast. This exam was performed according to our departmental dose-optimization program, which includes automated exposure control, adjustment of the mA and/or kV according to patient size and/or use of iterative reconstruction technique. FINDINGS: There is moderate paraseptal emphysematous changes at the lung bases with atelectasis/consolidation in the right lower lobe. No pleural or pericardial effusions. There is a moderate-sized hiatal hernia. The liver, spleen, and pancreas are unremarkable. Query punctate gallstones without inflammatory stranding. No adrenal masses are identified. There are multiple simple bilateral renal cysts with the largest measuring 3.6 cm in the left kidney. No hydronephrosis. No ureteral or bladder stones are seen. There are surgical clips in the bilateral pelvic sidewall as well as in the prostate bed. No small bowel obstruction. The appendix is normal. There are scattered colonic diverticula without surrounding inflammatory changes. The descending abdominal aorta measures 2.5 cm and contains atherosclerotic calcifications. There are no suspicious osseous lesions identified. IMPRESSION: 1. Moderate-sized hiatal hernia. 2. Query punctate gallstones. Consider ultrasound if clinically indicated. 3. Diverticulosis without inflammatory stranding. 4. Moderate emphysema with atelectasis/consolidation in the right lower lobe.
[2018-03-21] MEDS ORDERED: POTASSIUM CHLORIDE 20 MEQ/15 ML UDCUP PO ONE (22:34)
[2018-03-22] MEDS ORDERED: TUBERCULIN,PURIF.PROT.DERIV. 5 TU/0.1 ML TEST 1 ML VIAL ID ONE ×2 (05:08→10:00)
[2018-03-22 06:47] LABS: ABSOLUTE RETICS # 0.025 10^6/uL (0.028-0.122); RETICULOCYTE COUNT (AUTO) 0.77 % (0.66-2.85)
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
[2018-03-22] MEDS: CEFTRIAXONE 1 GM/D5W RTU 1 GM/50 ML RTUPB IV SCH (07:30)
[2018-03-22] MEDS: AZITHROMYCIN 250 MG TABLET PO SCH (08:10)
[2018-03-22] MEDS: LISINOPRIL 10 MG TABLET PO SCH (09:37)
[2018-03-22] MEDS: ENOXAPARIN SODIUM INJ 30 MG/0.3 ML DISP.SYRIN SUBCUT SCH (09:37)
[2018-03-22] MEDS: FAMOTIDINE 20 MG TABLET PO SCH (09:37)
[2018-03-22 11:48] LABS: IRON(TIBC) 73.4 ug/dL (49-181)
[2018-03-22 12:56] LABS: FOLATE 9.01 ng/mL (>2.76)
[2018-03-23 07:33] LABS: ANION GAP 9 (5-19); BLOOD UREA NITROGEN 18 mg/dL (7-20); CALCIUM 9.4 mg/dL (8.4-10.2); CARBON DIOXIDE 24 mmol/L (22-30); CHLORIDE 106 mmol/L (98-107); GLUCOSE 87 mg/dL (75-110); POTASSIUM 4.2 mmol/L (3.6-5.0); SODIUM 139.2 mmol/L (137-145)
--- NOTE | 2018-03-23 08:35 | PDOC PROGRESS REPORT ---
Subjective Progress Note for:: 03/23/18 Subjective:: no complaints or cough Reason For Visit: PNEUMONIA Physical Exam Vital Signs: Temp Pulse Resp BP Pulse Ox 97.8 F 71 16 160/67 H 99 03/22/18 23:41 03/22/18 23:41 03/22/18 23:41 03/22/18 23:41 03/22/18 23:41 Intake & Output 03/21/18 03/22/18 03/23/18 07:59 07:59 07:59 Intake Total 1000 50 Balance 1000 50 Weight 138 lb 14.259 oz 141 lb 8.588 oz General appearance: PRESENT: no acute distress Respiratory exam: PRESENT: clear to auscultation bentley Cardiovascular exam: ABSENT: diastolic murmur, irregular rhythm, systolic murmur Murmur grade: 2 GI/Abdominal exam: ABSENT: mass, organolmegaly, tenderness Extremities exam: ABSENT: pedal edema Neurological exam: ABSENT: oriented to situation Psychiatric exam: PRESENT: appropriate affect Results Laboratory Results: 03/21/18 16:30 03/21/18 16:30 03/22/18 03/22/18 03/22/18 06:36 06:36 06:36 Retic Count (auto) 0.77 Absolute Retic 0.025 L Iron 73.4 TIBC 267 % Saturation 27 Ferritin 132.00 Prostate Specific Ag < 0.060 Vitamin B12 369.0 Folate 9.01 Impressions: Chest X-Ray 03/21/18 18:31 IMPRESSION: Ectasia of the ascending aorta. No acute pulmonary findings. Head CT 03/21/18 18:31 IMPRESSION: MICROVASCULAR ISCHEMIA AND GENERALIZED ATROPHY. NO ACUTE IMAGING FINDINGS IN THE BRAIN EVIDENCE OF ACUTE STROKE: NO. Abdomen/Pelvis CT 03/21/18 20:49 IMPRESSION: 1. Moderate-sized hiatal hernia. 2. Query punctate gallstones. Consider ultrasound if clinically indicated. 3. Diverticulosis without inflammatory stranding. 4. Moderate emphysema with atelectasis/consolidation in the right lower lobe. Assessment & Plan - Diagnosis (1) Right lower lobe pneumonia Qualifiers: Pneumonia type: due to unspecified organism Qualified Code(s): J18.1 - Lobar pneumonia, unspecified organism Is this a current diagnosis for this admission?: Yes Plan: afebrile d2 ceftri (2) Alzheimer's disease with late onset Qualifiers: Dementia behavioral disturbance: without behavioral disturbance Qualified Code(s): G30.1 - Alzheimer's disease with late onset; F02.80 - Dementia in other diseases classified elsewhere without behavioral disturbance Is this a current diagnosis for this admission?: Yes (3) Generalized idiopathic epilepsy and epileptic syndromes, without status epilepticus, not intractable Is this a current diagnosis for this admission?: Yes (4) Panlobular emphysema Is this a current diagnosis for this admission?: Yes (5) Essential (primary) hypertension Is this a current diagnosis for this admission?: Yes (6) Nonrheumatic aortic valve stenosis Is this a current diagnosis for this admission?: Yes (7) Chronic post-traumatic stress disorder Is this a current diagnosis for this admission?: Yes (8) Bedbug bite Qualifiers: Encounter type: subsequent encounter Qualified Code(s): W57.XXXD - Bitten or stung by nonvenomous insect and other nonvenomous arthropods, subsequent encounter Is this a current diagnosis for this admission?: Yes (9) Gastro-esophageal reflux disease without esophagitis Is this a current diagnosis for this admission?: Yes (10) Chronic kidney disease, stage 3 (moderate) Is this a current diagnosis for this admission?: Yes (11) Acute infective cystitis Is this a current diagnosis for this admission?: Yes Plan: growing rods. Continue ceftri (12) Anemia Qualifiers: Anemia type: due to chronic kidney disease Chronic kidney disease stage: stage 3 (moderate) Qualified Code(s): N18.3 - Chronic kidney disease, stage 3 (moderate); D63.1 - Anemia in chronic kidney disease Is this a current diagnosis for this admission?: Yes Plan: ferritin & b12 ok. IBC borderline. (13) B12 deficiency Is this a current diagnosis for this admission?: Yes Plan: [id number] off supplements. Stop b12 (14) Adenocarcinoma of prostate Is this a current diagnosis for this admission?: Yes Plan: psa undetectable - Inpatient Certification Medical Necessity: Failure to Improve With Outpatient Therapy, Significant Comorbidiites Make Outpatient Treatment Too Risky, Need Close Monitoring Due to Risk of Patient Decompensation, Need For IV Fluids, Need for IV Antibiotics, Risk of Complication if Not Cared For in Hospital, Risk of Diagnosis Which Will Require Inpatient Eval/Care/Monitoring Post Hospital Care: D/C Jewel Staker Documentation
[2018-03-23] MEDS: AZITHROMYCIN 250 MG TABLET PO SCH (11:36)
[2018-03-23] MEDS: CEFTRIAXONE 1 GM/D5W RTU 1 GM/50 ML RTUPB IV SCH (11:36)
[2018-03-23] MEDS: LISINOPRIL 10 MG TABLET PO SCH (11:37)
[2018-03-23] MEDS: ENOXAPARIN SODIUM INJ 30 MG/0.3 ML DISP.SYRIN SUBCUT SCH (11:37)
[2018-03-23] MEDS: FAMOTIDINE 20 MG TABLET PO SCH (11:37)
[2018-03-24 05:28] LABS: ANION GAP 8 (5-19); BLOOD UREA NITROGEN 29 mg/dL (7-20); CALCIUM 9.7 mg/dL (8.4-10.2); CARBON DIOXIDE 23 mmol/L (22-30); CHLORIDE 106 mmol/L (98-107); GLUCOSE 89 mg/dL (75-110); POTASSIUM 4.5 mmol/L (3.6-5.0); SODIUM 136.9 mmol/L (137-145)
--- NOTE | 2018-03-24 12:32 | PDOC PROGRESS REPORT ---
Subjective Progress Note for:: 03/24/18 Subjective:: no cough or dysuria. Told nurses yesterday how appartment was heated to kill bedbugs. Reason For Visit: PNEUMONIA Physical Exam Vital Signs: Temp Pulse Resp BP Pulse Ox 98.5 F 71 16 114/50 L 99 03/23/18 23:21 03/23/18 23:21 03/23/18 19:29 03/23/18 23:21 03/23/18 23:21 Intake & Output 03/23/18 03/24/18 03/25/18 07:59 07:59 07:59 Intake Total 404 1459 Balance 404 1459 Weight 141 lb 8.588 oz 145 lb 4.554 oz General appearance: PRESENT: no acute distress Respiratory exam: PRESENT: clear to auscultation bentley Cardiovascular exam: ABSENT: diastolic murmur, irregular rhythm, systolic murmur Murmur grade: 2 GI/Abdominal exam: ABSENT: mass, organolmegaly, tenderness Extremities exam: ABSENT: pedal edema Neurological exam: PRESENT: alert Psychiatric exam: PRESENT: appropriate affect Results Laboratory Results: 03/21/18 16:30 03/24/18 04:42 03/24/18 04:42 Sodium 136.9 L Potassium 4.5 Chloride 106 Carbon Dioxide 23 Anion Gap 8 BUN 29 H Creatinine 1.85 H Est GFR ( Amer) 43 L Est GFR (Non-Af Amer) 36 L Glucose 89 Calcium 9.7 03/21/18 17:18 Catheterized Urine Urine Culture - Final Escherichia Coli Esbl Impressions: Chest X-Ray 03/21/18 18:31 IMPRESSION: Ectasia of the ascending aorta. No acute pulmonary findings. Head CT 03/21/18 18:31 IMPRESSION: MICROVASCULAR ISCHEMIA AND GENERALIZED ATROPHY. NO ACUTE IMAGING FI NDINGS IN THE BRAIN EVIDENCE OF ACUTE STROKE: NO. Abdomen/Pelvis CT 03/21/18 20:49 IMPRESSION: 1. Moderate-sized hiatal hernia. 2. Query punctate gallstones. Consider ultrasound if clinically indicated. 3. Diverticulosis without inflammatory stranding. 4. Moderate emphysema with atelectasis/consolidation in the right lower lobe. Assessment & Plan - Diagnosis (1) Acute infective cystitis Is this a current diagnosis for this admission?: Yes Plan: 100k citrobacter ESBL sensitive to zosyn penems nitrofurantoin tcn tmpSmz. Switch antibiotics to zosyn. (2) Right lower lobe pneumonia Qualifiers: Pneumonia type: due to unspecified organism Qualified Code(s): J18.1 - Lobar pneumonia, unspecified organism Is this a current diagnosis for this admission?: Yes (3) Alzheimer's disease with late onset Qualifiers: Dementia behavioral disturbance: without behavioral disturbance Qualified Code(s): G30.1 - Alzheimer's disease with late onset; F02.80 - Dementia in other diseases classified elsewhere without behavioral disturbance Is this a current diagnosis for this admission?: Yes (4) Generalized idiopathic epilepsy and epileptic syndromes, without status epilepticus, not intractable Is this a current diagnosis for this admission?: Yes (5) Panlobular emphysema Is this a current diagnosis for this admission?: Yes (6) Essential (primary) hypertension Is this a current diagnosis for this admission?: Yes (7) Nonrheumatic aortic valve stenosis Is this a current diagnosis for this admission?: Yes (8) Chronic post-traumatic stress disorder Is this a current diagnosis for this admission?: Yes (9) Bedbug bite Qualifiers: Encounter type: subsequent encounter Qualified Code(s): W57.XXXD - Bitten or stung by nonvenomous insect and other nonvenomous arthropods, subsequent encounter Is this a current diagnosis for this admission?: Yes (10) Gastro-esophageal reflux disease without esophagitis Is this a current diagnosis for this admission?: Yes (11) Chronic kidney disease, stage 3 (moderate) Is this a current diagnosis for this admission?: Yes (12) B12 deficiency Is this a current diagnosis for this admission?: Yes (13) Adenocarcinoma of prostate Is this a current diagnosis for this admission?: Yes (14) Anemia Qualifiers: Anemia type: due to chronic kidney disease Chronic kidney disease stage: stage 3 (moderate) Qualified Code(s): N18.3 - Chronic kidney disease, stage 3 (moderate); D63.1 - Anemia in chronic kidney disease Is this a current diagnosis for this admission?: Yes - Inpatient Certification Medical Necessity: Failure to Improve With Outpatient Therapy, Significant Comorbidiites Make Outpatient Treatment Too Risky, Need Close Monitoring Due to Risk of Patient Decompensation, Need for IV Antibiotics, Risk of Complication if Not Cared For in Hospital, Risk of Diagnosis Which Will Require Inpatient Eval/Care/Monitoring
[2018-03-24] MEDS: CEFTRIAXONE 1 GM/D5W RTU 1 GM/50 ML RTUPB IV SCH (14:31)
[2018-03-24] MEDS: AZITHROMYCIN 250 MG TABLET PO SCH (14:32)
[2018-03-24] MEDS: LISINOPRIL 10 MG TABLET PO SCH (14:35)
[2018-03-24] MEDS: PIPERACILLIN SODIUM/TAZOBACTAM 3.375 GM in NORMAL SALINE 100 ML IV SCH ×2 (16:12→21:37)
[2018-03-24] MEDS: FAMOTIDINE 20 MG TABLET PO SCH (16:13)
[2018-03-24] MEDS: ENOXAPARIN SODIUM INJ 30 MG/0.3 ML DISP.SYRIN SUBCUT SCH (16:13)
[2018-03-24 18:01] LABS: INTRINSIC FACTOR ANTIBODY 1.1 AU/mL (0.0-1.1)
[2018-03-25] MEDS: PIPERACILLIN SODIUM/TAZOBACTAM 3.375 GM in NORMAL SALINE 100 ML IV SCH ×4 (05:15→21:03)
[2018-03-25 07:37] LABS: ANION GAP 7 (5-19); BLOOD UREA NITROGEN 27 mg/dL (7-20); CALCIUM 9.7 mg/dL (8.4-10.2); CARBON DIOXIDE 25 mmol/L (22-30); CHLORIDE 105 mmol/L (98-107); GLUCOSE 99 mg/dL (75-110); POTASSIUM 4.3 mmol/L (3.6-5.0); SODIUM 136.6 mmol/L (137-145)
--- NOTE | 2018-03-25 08:20 | PDOC PROGRESS REPORT ---
Subjective Progress Note for:: 03/25/18 Subjective:: Chronic L shoulder pain with abduction. Reason For Visit: PNEUMONIA Physical Exam Vital Signs: Temp Pulse Resp BP Pulse Ox 98.1 F 74 16 124/61 98 03/24/18 23:35 03/24/18 23:35 03/24/18 23:35 03/24/18 23:35 03/24/18 23:35 Intake & Output 03/24/18 03/25/18 03/26/18 07:59 07:59 07:59 Intake Total 1459 1084 Balance 1459 1084 Weight 145 lb 4.554 oz 149 lb 11.102 oz General appearance: PRESENT: no acute distress Respiratory exam: PRESENT: clear to auscultation bentley Cardiovascular exam: ABSENT: diastolic murmur, irregular rhythm, systolic murmur Murmur grade: 2 GI/Abdominal exam: ABSENT: mass, organolmegaly, tenderness Extremities exam: ABSENT: pedal edema Neurological exam: PRESENT: alert Psychiatric exam: PRESENT: appropriate affect Results Laboratory Results: 03/21/18 16:30 03/25/18 07:10 03/25/18 07:10 Sodium 136.6 L Potassium 4.3 Chloride 105 Carbon Dioxide 25 Anion Gap 7 BUN 27 H Creatinine 2.05 H Est GFR ( Amer) 38 L Est GFR (Non-Af Amer) 32 L Glucose 99 Calcium 9.7 03/21/18 17:18 Catheterized Urine Urine Culture - Final Escherichia Coli Esbl Impressions: Chest X-Ray 03/21/18 18:31 IMPRESSION: Ectasia of the ascending aorta. No acute pulmonary findings. Head CT 03/21/18 18:31 IMPRESSION: MICROVASCULAR ISCHEMIA AND GENERALIZED ATROPHY. NO ACUTE IMAGING FINDINGS IN THE BRAIN EVIDENCE OF ACUTE STROKE: NO. Abdomen/Pelvis CT 03/21/18 20:49 IMPRESSION: 1. Moderate-sized hiatal hernia. 2. Query punctate gallstones. Consider ultrasound if clinically indicated. 3. Diverticulosis without inflammatory stranding. 4. Moderate emphysema with atelectasis/consolidation in the right lower lobe. Assessment & Plan - Diagnosis (1) Acute infective cystitis Is this a current diagnosis for this admission?: Yes Plan: continue zosyn (2) Right lower lobe pneumonia Qualifiers: Pneumonia type: due to unspecified organism Qualified Code(s): J18.1 - Lobar pneumonia, unspecified organism Is this a current diagnosis for this admission?: Yes Plan: continue zosyn (3) Alzheimer's disease with late onset Qualifiers: Dementia behavioral disturbance: without behavioral disturbance Qualified Code(s): G30.1 - Alzheimer's disease with late onset; F02.80 - Dementia in other diseases classified elsewhere without behavioral disturbance Is this a current diagnosis for this admission?: Yes (4) Generalized idiopathic epilepsy and epileptic syndromes, without status epilepticus, not intractable Is this a current diagnosis for this admission?: Yes Plan: I am tempted to try keppra, but he wont stay on anything. (5) Panlobular emphysema Is this a current diagnosis for this admission?: Yes (6) Essential (primary) hypertension Is this a current diagnosis for this admission?: Yes Plan: bp down. Stop nitish. (7) Nonrheumatic aortic valve stenosis Is this a current diagnosis for this admission?: Yes (8) Chronic post-traumatic stress disorder Is this a current diagnosis for this admission?: Yes (9) Bedbug bite Qualifiers: Encounter type: subsequent encounter Qualified Code(s): W57.XXXD - Bitten or stung by nonvenomous insect and other nonvenomous arthropods, subsequent encounter Is this a current diagnosis for this admission?: Yes (10) Gastro-esophageal reflux disease without esophagitis Is this a current diagnosis for this admission?: Yes (11) Chronic kidney disease, stage 3 (moderate) Is this a current diagnosis for this admission?: Yes Plan: Creatilnine back up to baseline. In 1100. (12) B12 deficiency Is this a current diagnosis for this admission?: Yes Plan: IF antibody negative. Stopped b12. (13) Adenocarcinoma of prostate Is this a current diagnosis for this admission?: Yes (14) Anemia Qualifiers: Anemia type: due to chronic kidney disease Chronic kidney disease stage: stage 3 (moderate) Qualified Code(s): N18.3 - Chronic kidney disease, stage 3 (moderate); D63.1 - Anemia in chronic kidney disease Is this a current diagnosis for this admission?: Yes
[2018-03-25] MEDS: ENOXAPARIN SODIUM INJ 30 MG/0.3 ML DISP.SYRIN SUBCUT SCH (11:07)
[2018-03-25] MEDS: FAMOTIDINE 20 MG TABLET PO SCH (11:07)
[2018-03-25] MEDS: ACETAMINOPHEN 325 MG TABLET PO PRN (15:36)
[2018-03-26] MEDS: PIPERACILLIN SODIUM/TAZOBACTAM 3.375 GM in NORMAL SALINE 100 ML IV SCH ×4 (02:34→20:30)
--- NOTE | 2018-03-26 08:23 | PDOC PROGRESS REPORT ---
Subjective Progress Note for:: 03/26/18 Subjective:: productive cough. No dysuria. Reason For Visit: PNEUMONIA Physical Exam Vital Signs: Temp Pulse Resp BP Pulse Ox 99.0 F 80 18 139/63 H 98 03/26/18 02:36 03/26/18 02:36 03/26/18 02:36 03/26/18 02:36 03/26/18 02:36 Intake & Output 03/25/18 03/26/18 03/27/18 07:59 07:59 07:59 Intake Total 1084 636 Balance 1084 636 Weight 149 lb 11.102 oz 149 lb 7.574 oz General appearance: PRESENT: no acute distress Respiratory exam: PRESENT: clear to auscultation bentley Cardiovascular exam: ABSENT: diastolic murmur, irregular rhythm, systolic murmur Murmur grade: 2 GI/Abdominal exam: ABSENT: mass, organolmegaly, tenderness Extremities exam: ABSENT: pedal edema Neurological exam: PRESENT: alert Psychiatric exam: PRESENT: appropriate affect Results Laboratory Results: 03/21/18 16:30 03/25/18 07:10 Impressions: Chest X-Ray 03/21/18 18:31 IMPRESSION: Ectasia of the ascending aorta. No acute pulmonary findings. Head CT 03/21/18 18:31 IMPRESSION: MICROVASCULAR ISCHEMIA AND GENERALIZED ATROPHY. NO ACUTE IMAGING FINDINGS IN THE BRAIN EVIDENCE OF ACUTE STROKE: NO. Abdomen/Pelvis CT 03/21/18 20:49 IMPRESSION: 1. Moderate-sized hiatal hernia. 2. Query punctate gallstones. Consider ultrasound if clinically indicated. 3. Diverticulosis without inflammatory stranding. 4. Moderate emphysema with atelectasis/consolidation in the right lower lobe. Assessment & Plan - Diagnosis (1) Acute infective cystitis Is this a current diagnosis for this admission?: Yes Plan: d3 zosyn. 4 more days (2) Right lower lobe pneumonia Qualifiers: Pneumonia type: due to unspecified organism Qualified Code(s): J18.1 - Lobar pneumonia, unspecified organism Is this a current diagnosis for this admission?: Yes Plan: d5 antibiotics (3) Alzheimer's disease with late onset Qualifiers: Dementia behavioral disturbance: without behavioral disturbance Qualified Code(s): G30.1 - Alzheimer's disease with late onset; F02.80 - Dementia in other diseases classified elsewhere without behavioral disturbance Is this a current diagnosis for this admission?: Yes Plan: discharge planning unable to contact family. Needs APS wu of state medicaid SNF. (4) Generalized idiopathic epilepsy and epileptic syndromes, without status epilepticus, not intractable Is this a current diagnosis for this admission?: Yes Plan: I could treat in SNF but cant at home with noncompliance. (5) Panlobular emphysema Is this a current diagnosis for this admission?: Yes (6) Essential (primary) hypertension Is this a current diagnosis for this admission?: Yes (7) Nonrheumatic aortic valve stenosis Is this a current diagnosis for this admission?: Yes (8) Chronic post-traumatic stress disorder Is this a current diagnosis for this admission?: Yes (9) Bedbug bite Qualifiers: Encounter type: subsequent encounter Qualified Code(s): W57.XXXD - Bitten or stung by nonvenomous insect and other nonvenomous arthropods, subsequent encounter Is this a current diagnosis for this admission?: Yes (10) Gastro-esophageal reflux disease without esophagitis Is this a current diagnosis for this admission?: Yes (11) Chronic kidney disease, stage 3 (moderate) Is this a current diagnosis for this admission?: Yes (12) Adenocarcinoma of prostate Is this a current diagnosis for this admission?: Yes (13) Anemia Qualifiers: Anemia type: due to chronic kidney disease Chronic kidney disease stage: stage 3 (moderate) Qualified Code(s): N18.3 - Chronic kidney disease, stage 3 (moderate); D63.1 - Anemia in chronic kidney disease Is this a current diagnosis for this admission?: Yes - Inpatient Certification Medical Necessity: Failure to Improve With Outpatient Therapy, Significant Comorbidiites Make Outpatient Treatment Too Risky, Need Close Monitoring Due to Risk of Patient Decompensation, Need for IV Antibiotics, Risk of Complication if Not Cared For in Hospital, Risk of Diagnosis Which Will Require Inpatient Eval/Care/Monitoring
[2018-03-26] MEDS: ENOXAPARIN SODIUM INJ 30 MG/0.3 ML DISP.SYRIN SUBCUT SCH (08:40)
[2018-03-26] MEDS: FAMOTIDINE 20 MG TABLET PO SCH (08:40)
[2018-03-27] MEDS: PIPERACILLIN SODIUM/TAZOBACTAM 3.375 GM in NORMAL SALINE 100 ML IV SCH ×4 (03:14→20:47)
--- NOTE | 2018-03-27 06:53 | PDOC PROGRESS REPORT ---
Subjective Progress Note for:: 03/27/18 Subjective:: still coughing Reason For Visit: PNEUMONIA Physical Exam Vital Signs: Temp Pulse Resp BP Pulse Ox 100.0 F 77 16 124/62 97 03/26/18 23:45 03/26/18 23:45 03/26/18 23:45 03/26/18 23:45 03/26/18 23:45 Intake & Output 03/25/18 03/26/18 03/27/18 07:59 07:59 07:59 Intake Total 8157 089 7669 Balance 7405 088 2565 Weight 149 lb 11.102 oz 149 lb 7.574 oz 149 lb 7.574 oz General appearance: PRESENT: no acute distress Respiratory exam: PRESENT: clear to auscultation bentley Cardiovascular exam: ABSENT: diastolic murmur, irregular rhythm, systolic murmur Murmur grade: 2 GI/Abdominal exam: ABSENT: mass, organolmegaly, tenderness Extremities exam: ABSENT: pedal edema Neurological exam: PRESENT: alert Psychiatric exam: PRESENT: appropriate affect Results Laboratory Results: 03/21/18 16:30 03/25/18 07:10 03/21/18 16:30 Blood Blood Culture - Final NO GROWTH IN 5 DAYS 03/21/18 19:20 Blood Blood Culture - Final NO GROWTH IN 5 DAYS Impressions: Chest X-Ray 03/21/18 18:31 IMPRESSION: Ectasia of the ascending aorta. No acute pulmonary findings. Head CT 03/21/18 18:31 IMPRESSION: MICROVASCULAR ISCHEMIA AND GENERALIZED ATROPHY. NO ACUTE IMAGING FINDINGS IN THE BRAIN EVIDENCE OF ACUTE STROKE: NO. Abdomen/Pelvis CT 03/21/18 20:49 IMPRESSION: 1. Moderate-sized hiatal hernia. 2. Query punctate gallstones. Consider ultrasound if clinically indicated. 3. Diverticulosis without inflammatory stranding. 4. Moderate emphysema with atelectasis/consolidation in the right lower lobe. Assessment & Plan - Diagnosis (1) Acute infective cystitis Is this a current diagnosis for this admission?: Yes Plan: ESBL d4 zosyn (2) Right lower lobe pneumonia Qualifiers: Pneumonia type: due to unspecified organism Qualified Code(s): J18.1 - Lobar pneumonia, unspecified organism Is this a current diagnosis for this admission?: Yes Plan: d6 antibiotics (3) Alzheimer's disease with late onset Qualifiers: Dementia behavioral disturbance: without behavioral disturbance Qualified Code(s): G30.1 - Alzheimer's disease with late onset; F02.80 - Dementia in other diseases classified elsewhere without behavioral disturbance Is this a current diagnosis for this admission?: Yes Plan: found crawling on floor yesterday. Working on medicaid & SNF. No response from family. (4) Generalized idiopathic epilepsy and epileptic syndromes, without status epilepticus, not intractable Is this a current diagnosis for this admission?: Yes (5) Panlobular emphysema Is this a current diagnosis for this admission?: Yes (6) Essential (primary) hypertension Is this a current diagnosis for this admission?: Yes (7) Nonrheumatic aortic valve stenosis Is this a current diagnosis for this admission?: Yes (8) Chronic post-traumatic stress disorder Is this a current diagnosis for this admission?: Yes (9) Bedbug bite Qualifiers: Encounter type: subsequent encounter Qualified Code(s): W57.XXXD - Bitten or stung by nonvenomous insect and other nonvenomous arthropods, subsequent encounter Is this a current diagnosis for this admission?: Yes (10) Gastro-esophageal reflux disease without esophagitis Is this a current diagnosis for this admission?: Yes (11) Chronic kidney disease, stage 3 (moderate) Is this a current diagnosis for this admission?: Yes (12) Adenocarcinoma of prostate Is this a current diagnosis for this admission?: Yes (13) Anemia Qualifiers: Anemia type: due to chronic kidney disease Chronic kidney disease stage: stage 3 (moderate) Qualified Code(s): N18.3 - Chronic kidney disease, stage 3 (moderate); D63.1 - Anemia in chronic kidney disease Is this a current diagnosis for this admission?: Yes - Inpatient Certification Medical Necessity: Failure to Improve With Outpatient Therapy, Significant Comorbidiites Make Outpatient Treatment Too Risky, Need Close Monitoring Due to Risk of Patient Decompensation, Need for IV Antibiotics, Risk of Complication if Not Cared For in Hospital, Risk of Diagnosis Which Will Require Inpatient Eval/Care/Monitoring
[2018-03-27] MEDS: FAMOTIDINE 20 MG TABLET PO SCH (10:06)
[2018-03-27] MEDS: ENOXAPARIN SODIUM INJ 30 MG/0.3 ML DISP.SYRIN SUBCUT SCH (10:06)
[2018-03-27] MEDS: ACETAMINOPHEN 325 MG TABLET PO PRN (17:11)
[2018-03-28] MEDS: PIPERACILLIN SODIUM/TAZOBACTAM 3.375 GM in NORMAL SALINE 100 ML IV SCH ×4 (03:21→20:39)
--- NOTE | 2018-03-28 08:08 | PDOC PROGRESS REPORT ---
Subjective Progress Note for:: 03/28/18 Subjective:: nasal congestion cough Reason For Visit: PNEUMONIA Physical Exam Vital Signs: Temp Pulse Resp BP Pulse Ox 97.6 F 86 16 122/66 98 03/27/18 23:38 03/27/18 23:38 03/27/18 23:38 03/27/18 23:38 03/27/18 23:38 Intake & Output 03/27/18 03/28/18 03/29/18 07:59 07:59 07:59 Intake Total 2029 1020 Output Total 350 Balance 2029 670 Weight 149 lb 7.574 oz 149 lb 7.574 oz General appearance: PRESENT: no acute distress Respiratory exam: PRESENT: clear to auscultation bentley Cardiovascular exam: ABSENT: diastolic murmur, irregular rhythm, systolic murmur Murmur grade: 2 GI/Abdominal exam: ABSENT: mass, organolmegaly, tenderness Neurological exam: PRESENT: alert Psychiatric exam: PRESENT: appropriate affect Results Laboratory Results: 03/21/18 16:30 03/25/18 07:10 Impressions: Chest X-Ray 03/21/18 18:31 IMPRESSION: Ectasia of the ascending aorta. No acute pulmonary findings. Head CT 03/21/18 18:31 IMPRESSION: MICROVASCULAR ISCHEMIA AND GENERALIZED ATROPHY. NO ACUTE IMAGING FINDINGS IN THE BRAIN EVIDENCE OF ACUTE STROKE: NO. Abdomen/Pelvis CT 03/21/18 20:49 IMPRESSION: 1. Moderate-sized hiatal hernia. 2. Query punctate gallstones. Consider ultrasound if clinically indicated. 3. Diverticulosis without inflammatory stranding. 4. Moderate emphysema with atelectasis/consolidation in the right lower lobe. Assessment & Plan - Diagnosis (1) Acute infective cystitis Is this a current diagnosis for this admission?: Yes Plan: d5 zosyn (2) Right lower lobe pneumonia Qualifiers: Pneumonia type: due to unspecified organism Qualified Code(s): J18.1 - Lobar pneumonia, unspecified organism Is this a current diagnosis for this admission?: Yes Plan: d7 antibiotics (3) Alzheimer's disease with late onset Qualifiers: Dementia behavioral disturbance: without behavioral disturbance Qualified Code(s): G30.1 - Alzheimer's disease with late onset; F02.80 - Dementia in other diseases classified elsewhere without behavioral disturbance Is this a current diagnosis for this admission?: Yes Plan: APS requested psych eval. Willing to go to SNF (4) Generalized idiopathic epilepsy and epileptic syndromes, without status epilepticus, not intractable Is this a current diagnosis for this admission?: Yes (5) Panlobular emphysema Is this a current diagnosis for this admission?: Yes (6) Essential (primary) hypertension Is this a current diagnosis for this admission?: Yes (7) Nonrheumatic aortic valve stenosis Is this a current diagnosis for this admission?: Yes (8) Chronic post-traumatic stress disorder Is this a current diagnosis for this admission?: Yes (9) Bedbug bite Qualifiers: Encounter type: subsequent encounter Qualified Code(s): W57.XXXD - Bitten or stung by nonvenomous insect and other nonvenomous arthropods, subsequent encounter Is this a current diagnosis for this admission?: Yes (10) Gastro-esophageal reflux disease without esophagitis Is this a current diagnosis for this admission?: Yes (11) Chronic kidney disease, stage 3 (moderate) Is this a current diagnosis for this admission?: Yes (12) Adenocarcinoma of prostate Is this a current diagnosis for this admission?: Yes (13) Anemia Qualifiers: Anemia type: due to chronic kidney disease Chronic kidney disease stage: stage 3 (moderate) Qualified Code(s): N18.3 - Chronic kidney disease, stage 3 (moderate); D63.1 - Anemia in chronic kidney disease Is this a current diagnosis for this admission?: Yes - Inpatient Certification Medical Necessity: Failure to Improve With Outpatient Therapy, Significant Comorbidiites Make Outpatient Treatment Too Risky, Need Close Monitoring Due to Risk of Patient Decompensation, Need for IV Antibiotics, Risk of Complication if Not Cared For in Hospital, Risk of Diagnosis Which Will Require Inpatient Eval/Care/Monitoring
[2018-03-28] MEDS: ENOXAPARIN SODIUM INJ 30 MG/0.3 ML DISP.SYRIN SUBCUT SCH (09:45)
[2018-03-28] MEDS: FAMOTIDINE 20 MG TABLET PO SCH (09:45)
[2018-03-29] MEDS: PIPERACILLIN SODIUM/TAZOBACTAM 3.375 GM in NORMAL SALINE 100 ML IV SCH ×4 (03:23→21:14)
--- NOTE | 2018-03-29 06:29 | PDOC PROGRESS REPORT ---
Subjective Progress Note for:: 03/29/18 Subjective:: less cough Reason For Visit: PNEUMONIA Physical Exam Vital Signs: Temp Pulse Resp BP Pulse Ox 98.2 F 74 16 120/59 L 97 03/28/18 23:40 03/28/18 23:40 03/28/18 23:40 03/28/18 23:40 03/28/18 23:40 Intake & Output 03/27/18 03/28/18 03/29/18 07:59 07:59 07:59 Intake Total 2029 1020 1458 Output Total 350 100 Balance 2029 670 1358 Weight 149 lb 7.574 oz 149 lb 7.574 oz 149 lb 7.574 oz General appearance: PRESENT: no acute distress Respiratory exam: PRESENT: clear to auscultation bentley Cardiovascular exam: ABSENT: diastolic murmur, irregular rhythm, systolic murmur Murmur grade: 2 GI/Abdominal exam: ABSENT: mass, organolmegaly, tenderness Extremities exam: ABSENT: pedal edema Neurological exam: PRESENT: oriented to time Psychiatric exam: PRESENT: other - oriented to year coherent euthymic. Knows only current president of last 3. Zero serial 7s. Cant do proverb. Recall 0of3 in 3min. Results Laboratory Results: 03/21/18 16:30 03/25/18 07:10 03/21/18 03/21/18 16:30 16:30 Creatine Kinase 176 H CK-MB (CK-2) 0.70 Troponin I < 0.012 Impressions: Chest X-Ray 03/21/18 18:31 IMPRESSION: Ectasia of the ascending aorta. No acute pulmonary findings. Head CT 03/21/18 18:31 IMPRESSION: MICROVASCULAR ISCHEMIA AND GENERALIZED ATROPHY. NO ACUTE IMAGING FINDINGS IN THE BRAIN EVIDENCE OF ACUTE STROKE: NO. Abdomen/Pelvis CT 03/21/18 20:49 IMPRESSION: 1. Moderate-sized hiatal hernia. 2. Query punctate gallstones. Consider ultrasound if clinically indicated. 3. Diverticulosis without inflammatory stranding. 4. Moderate emphysema with atelectasis/consolidation in the right lower lobe. Assessment & Plan - Diagnosis (1) Acute infective cystitis Is this a current diagnosis for this admission?: Yes Plan: d6 zosyn (2) Right lower lobe pneumonia Qualifiers: Pneumonia type: due to unspecified organism Qualified Code(s): J18.1 - Lobar pneumonia, unspecified organism Is this a current diagnosis for this admission?: Yes Plan: d8 antibiotics (3) Alzheimer's disease with late onset Qualifiers: Dementia behavioral disturbance: without behavioral disturbance Qualified Code(s): G30.1 - Alzheimer's disease with late onset; F02.80 - Dementia in other diseases classified elsewhere without behavioral disturbance Is this a current diagnosis for this admission?: Yes Plan: still waiting for psych eval medicaid SNF. Daughter finally contacted. (4) Generalized idiopathic epilepsy and epileptic syndromes, without status epilepticus, not intractable Is this a current diagnosis for this admission?: Yes (5) Panlobular emphysema Is this a current diagnosis for this admission?: Yes (6) Essential (primary) hypertension Is this a current diagnosis for this admission?: Yes (7) Nonrheumatic aortic valve stenosis Is this a current diagnosis for this admission?: Yes (8) Chronic post-traumatic stress disorder Is this a current diagnosis for this admission?: Yes (9) Bedbug bite Qualifiers: Encounter type: subsequent encounter Qualified Code(s): W57.XXXD - Bitten or stung by nonvenomous insect and other nonvenomous arthropods, subsequent en counter Is this a current diagnosis for this admission?: Yes (10) Gastro-esophageal reflux disease without esophagitis Is this a current diagnosis for this admission?: Yes (11) Chronic kidney disease, stage 3 (moderate) Is this a current diagnosis for this admission?: Yes (12) Adenocarcinoma of prostate Is this a current diagnosis for this admission?: Yes (13) Anemia Qualifiers: Anemia type: due to chronic kidney disease Chronic kidney disease stage: stage 3 (moderate) Qualified Code(s): N18.3 - Chronic kidney disease, stage 3 (moderate); D63.1 - Anemia in chronic kidney disease Is this a current diagnosis for this admission?: Yes - Inpatient Certification Medical Necessity: Failure to Improve With Outpatient Therapy, Significant Comorbidiites Make Outpatient Treatment Too Risky, Need Close Monitoring Due to Risk of Patient Decompensation, Need for IV Antibiotics, Risk of Complication if Not Cared For in Hospital, Risk of Diagnosis Which Will Require Inpatient E maryann/Care/Monitoring
[2018-03-29] MEDS: ENOXAPARIN SODIUM INJ 30 MG/0.3 ML DISP.SYRIN SUBCUT SCH (09:10)
[2018-03-29] MEDS: FAMOTIDINE 20 MG TABLET PO SCH (09:11)
[2018-03-29] MEDS: POLYETHYLENE GLYCOL 3350 POWDER 17 GM/1 PACKET PO SCH ×2 (09:11→09:18)
[2018-03-29] MEDS: ACETAMINOPHEN 325 MG TABLET PO PRN (16:50)
[2018-03-30] MEDS: PIPERACILLIN SODIUM/TAZOBACTAM 3.375 GM in NORMAL SALINE 100 ML IV SCH ×3 (04:17→16:37)
--- NOTE | 2018-03-30 08:05 | PDOC TRANSFER SUMMARY ---
General Admission Date/PCP: 03/22/18 03:39 CLAUDIA ALVES MD Admission Date: 03/22/18 Transfer Date: 03/30/18 Accepting Physician: at [facility] Resuscitation Status: Full Code - Transfer Diagnosis (1) Acute infective cystitis Is this a current diagnosis for this admission?: Yes (2) Right lower lobe pneumonia Is this a current diagnosis for this admission?: Yes (3) Alzheimer's disease with late onset Is this a current diagnosis for this admission?: Yes (4) Generalized idiopathic epilepsy and epileptic syndromes, without status epilepticus, not intractable Is this a current diagnosis for this admission?: Yes (5) Panlobular emphysema Is this a current diagnosis for this admission?: Yes (6) Essential (primary) hypertension Is this a current diagnosis for this admission?: Yes (7) Nonrheumatic aortic valve stenosis Is this a current diagnosis for this admission?: Yes (8) Chronic post-traumatic stress disorder Is this a current diagnosis for this admission?: Yes (9) Bedbug bite Is this a current diagnosis for this admission?: Yes (10) Gastro-esophageal reflux disease without esophagitis Is this a current diagnosis for this admission?: Yes (11) Chronic kidney disease, stage 3 (moderate) Is this a current diagnosis for this admission?: Yes (12) Adenocarcinoma of prostate Is this a current diagnosis for this admission?: Yes (13) Anemia Is this a current diagnosis for this admission?: Yes - Transfer Medications Transfer Medications: Current Medications Acetaminophen (Tylenol 325 Mg Tablet) 650 mg PO Q6HP PRN PRN Reason: PAIN/FEVER Stop: 04/24/18 15:16 Last Admin: 03/29/18 16:50 Dose: 650 mg Documented by: - Allergies Allergies/Adverse Reactions: No Known Allergies Allergy (Verified 01/07/18 18:14) - Diet/Activity Discharge Diet: Regular Discharge Activity: Supervised Activity Hospital Course Hospital Course: Cxr was normal but abdominal CT showed RLL infiltrate vs atelectasis. He did have some cough. Urine grew 100k E coli ESBL sensitive to penems gent tcn nitrofurantoin tmpSmz. He had 6d of zosyn after 2d ceftri & 3d azithromycin. No bed bugs were seen this admission. He decribed heat treatment of his appartment on one more lucid day. Because of his dementia and inability to care for himself, we requested [facility] long term care SNF. He agreed. APS requested psych exam and Dr Alvarez saw him yesterday. Medicaid is pending. PPD was placed on R arm today. Physical Exam Vital Signs: Temp Pulse Resp BP Pulse Ox 98.2 F 63 18 139/51 H 98 03/30/18 00:00 03/30/18 00:00 03/30/18 00:00 03/30/18 00:00 03/30/18 00:00 Intake & Output 03/28/18 03/29/18 03/30/18 07:59 07:59 07:59 Intake Total 1020 1458 996 Output Total 350 100 650 Balance 670 1358 346 Weight 149 lb 7.574 oz 149 lb 7.574 oz 136 lb 3.931 oz General appearance: PRESENT: no acute distress Respiratory exam: PRESENT: clear to auscultation bentley Cardiovascular exam: ABSENT: diastolic murmur, irregular rhythm, systolic murmur GI/Abdominal exam: ABSENT: mass, organolmegaly, tenderness Extremities exam: ABSENT: pedal edema Neurological exam: PRESENT: alert Psychiatric exam: PRESENT: appropriate affect Results Laboratory Results: 03/21/18 16:30 03/25/18 07:10 Labs- Last Values WBC 6.0 10^3/uL (4.0-10.5) 03/21/18 16:30 RBC 3.73 10^6/uL (4.35-5.55) L 03/21/18 16:30 Hgb 11.3 g/dL (13.5-17.0) L 03/21/18 16:30 Hct 33.6 % (37.9-51.0) L 03/21/18 16:30 MCV 90 fl (80-97) 03/21/18 16:30 MCH 30.3 pg (27.0-33.4) 03/21/18 16:30 MCHC 33.7 g/dL (32.0-36.0) 03/21/18 16:30 RDW 20.1 % (11.5-14.0) H 03/21/18 16:30 Plt Count 263 10^3/uL (150-450) 03/21/18 16:30 Seg Neutrophils % 32.1 % (42-78) L 03/21/18 16:30 Lymphocytes % 49.3 % (13-45) H 03/21/18 16:30 Monocytes % 10.2 % (3-13) 03/21/18 16:30 Eosinophils % 6.5 % (0-6) H 03/21/18 16:30 Basophils % 1.9 % (0-2) 03/21/18 16:30 Absolute Neutrophils 1.9 10^3/uL (1.7-8.2) 03/21/18 16:30 Absolute Lymphocytes 3.0 10^3/uL (0.5-4.7) 03/21/18 16:30 Absolute Monocytes 0.6 10^3/uL (0.1-1.4) 03/21/18 16:30 Absolute Eosinophils 0.4 10^3/uL (0.0-0.6) 03/21/18 16:30 Absolute Basophils 0.1 10^3/uL (0.0-0.2) 03/21/18 16:30 Platelet Comment ADEQUATE 03/21/18 16:30 Polychromasia SLIGHT 03/21/18 16:30 Poikilocytosis 2+ 03/21/18 16:30 Anisocytosis 2+ 03/21/18 16:30 Target Cells SLIGHT 03/21/18 16:30 Ovalocytes 1+ 03/21/18 16:30 Schistocytes SLIGHT 03/21/18 16:30 Retic Count (auto) 0.77 % (0.66-2.85) 03/22/18 06:36 Absolute Retic 0.025 10^6/uL (0.028-0.122) L 03/22/18 06:36 PT 14.4 SEC (11.4-15.4) 03/21/18 19:20 INR 1.07 03/21/18 19:20 VBG pH 7.47 (7.30-7.42) H 03/21/18 16:30 VBG pCO2 28.1 mmHg (35-63) L 03/21/18 16:30 VBG HCO3 20.0 mmol/L (20-32) 03/21/18 16:30 VBG Base Excess -2.5 mmol/L 03/21/18 16:30 Sodium 136.6 mmol/L (137-145) L 03/25/18 07:10 Potassium 4.3 mmol/L (3.6-5.0) 03/25/18 07:10 Chloride 105 mmol/L (98-107) 03/25/18 07:10 Carbon Dioxide 25 mmol/L (22-30) 03/25/18 07:10 Anion Gap 7 (5-19) 03/25/18 07:10 BUN 27 mg/dL (7-20) H 03/25/18 07:10 Creatinine 2.05 mg/dL (0.52-1.25) H 03/25/18 07:10 Est GFR ( Amer) 38 (>60) L 03/25/18 07:10 Est GFR (Non-Af Amer) 32 (>60) L 03/25/18 07:10 Glucose 99 mg/dL (75-110) 03/25/18 07:10 POC Glucose 171 mg/dL (70-110) H 03/21/18 16:32 Hemoglobin A1c % 5.6 % (4.7-6.0) 03/23/18 06:19 Lactic Acid 1.7 mmol/L (0.7-2.1) 03/21/18 22:24 Calcium 9.7 mg/dL (8.4-10.2) 03/25/18 07:10 Iron 73.4 ug/dL (49-181) 03/22/18 06:36 TIBC 267 ug/dL (250-450) 03/22/18 06:36 % Saturation 27 % 03/22/18 06:36 Ferritin 132.00 ng/mL (17.9-464.0) 03/22/18 06:36 Total Bilirubin 0.6 mg/dL (0.2-1.3) 03/21/18 16:30 Direct Bilirubin 0.3 mg/dL (0.0-0.4) 03/21/18 16:30 Neonat Total Bilirubin Not Reportable 03/21/18 16:30 Neonat Direct Bilirubin Not Reportable 03/21/18 16:30 Neonat Indirect Bili Not Reportable 03/21/18 16:30 AST 26 U/L (17-59) 03/21/18 16:30 ALT 8 U/L (21-72) L 03/21/18 16:30 Alkaline Phosphatase 59 U/L (38-126) 03/21/18 16:30 Ammonia < 8.7 umol/L (9-33) L 03/21/18 19:20 Creatine Kinase 176 U/L (55-170) H 03/21/18 16:30 CK-MB (CK-2) 0.70 ng/mL (<4.55) 03/21/18 16:30 Troponin I < 0.012 ng/mL 03/21/18 16:30 Total Protein 8.2 g/dL (6.3-8.2) 03/21/18 16:30 Albumin 4.8 g/dL (3.5-5.0) 03/21/18 16:30 Prostate Specific Ag < 0.060 ng/mL (<4.00) 03/22/18 06:36 Vitamin B12 369.0 pg/mL (239-931) 03/22/18 06:36 Folate 9.01 ng/mL (>2.76) 03/22/18 06:36 Urine Color YELLOW 03/21/18 17:18 Urine Appearance CLEAR 03/21/18 17:18 Urine pH 5.0 (5.0-9.0) 03/21/18 17:18 Ur Specific [place] 1.015 03/21/18 17:18 Urine Protein 30 mg/dL (NEGATIVE) H 03/21/18 17:18 Urine Glucose (UA) NEGATIVE mg/dL (NEGATIVE) 03/21/18 17:18 Urine Ketones NEGATIVE mg/dL (NEGATIVE) 03/21/18 17:18 Urine Blood NEGATIVE (NEGATIVE) 03/21/18 17:18 Urine Nitrite NEGATIVE (NEGATIVE) 03/21/18 17:18 Urine Bilirubin NEGATIVE (NEGATIVE) 03/21/18 17:18 Urine Urobilinogen NEGATIVE mg/dL (<2.0) 03/21/18 17:18 Ur Leukocyte Esterase TRACE (NEGATIVE) H 03/21/18 17:18 Urine WBC (Auto) 7 /HPF 03/21/18 17:18 Urine RBC (Auto) 1 /HPF 03/21/18 17:18 Urine Bacteria (Auto) 3+ /HPF 03/21/18 17:18 Squamous Epi Cells Auto <1 /HPF 03/21/18 17:18 Urine Mucus (Auto) RARE /LPF 03/21/18 17:18 Urine Ascorbic Acid NEGATIVE (NEGATIVE) 03/21/18 17:18 Intrinsic Factor Ab 1.1 AU/mL (0.0-1.1) 03/22/18 06:36 Impressions: Chest X-Ray 03/21/18 18:31 IMPRESSION: Ectasia of the ascending aorta. No acute pulmonary findings. Head CT 03/21/18 18:31 IMPRESSION: MICROVASCULAR ISCHEMIA AND GENERALIZED ATROPHY. NO ACUTE IMAGING FINDINGS IN THE BRAIN EVIDENCE OF ACUTE STROKE: NO. Abdomen/Pelvis CT 03/21/18 20:49 IMPRESSION: 1. Moderate-sized hiatal hernia. 2. Query punctate gallstones. Consider ultrasound if clinically indicated. 3. Diverticulosis without inflammatory stranding. 4. Moderate emphysema with atelectasis/consolidation in the right lower lobe. Plan Discharge Plan: I will follow him at [facility] rehab [facility].
[2018-03-30] MEDS ORDERED: TUBERCULIN,PURIF.PROT.DERIV. 5 TU/0.1 ML TEST 1 ML VIAL ID ONE (10:00)
[2018-03-30] MEDS ORDERED: LUBIPROSTONE 24 MCG CAPSULE PO SCH (10:00)
[2018-03-30] MEDS: ENOXAPARIN SODIUM INJ 30 MG/0.3 ML DISP.SYRIN SUBCUT SCH (10:23)
[2018-03-30] MEDS: POLYETHYLENE GLYCOL 3350 POWDER 17 GM/1 PACKET PO SCH (10:23)
[2018-03-30] MEDS: FAMOTIDINE 20 MG TABLET PO SCH (10:23)
[2018-03-30 17:00] VITALS: BP 138/68
== END 2018-03-30 18:17 | DRG 689 ==
LOC: ER 16:03 → EH 03-22 03:39 → 4S 03-22 18:13
PROVIDERS: ADMIT Family Medicine; ATTEND Family Medicine
DX: N30.00 Acute cystitis without hematuria (principal); J18.1 Lobar pneumonia, unspecified organism; N17.9 Acute kidney failure, unspecified; G30.1 Alzheimer's disease with late onset; F02.80 Dementia in other diseases classified elsewhere, unspecified severity, without behavioral disturbance, psychotic disturbance, mood disturbance, and anxiety; J43.1 Panlobular emphysema; D63.1 Anemia in chronic kidney disease; B96.20 Unspecified Escherichia coli [E. coli] as the cause of diseases classified elsewhere; E78.00 Pure hypercholesterolemia, unspecified; I35.0 Nonrheumatic aortic (valve) stenosis; K44.9 Diaphragmatic hernia without obstruction or gangrene; K21.9 Gastro-esophageal reflux disease without esophagitis; E87.6 Hypokalemia; I12.9 Hypertensive chronic kidney disease with stage 1 through stage 4 chronic kidney disease, or unspecified chronic kidney disease; N18.3 Chronic kidney disease, stage 3 (moderate); F32.9 Major depressive disorder, single episode, unspecified; F43.12 Post-traumatic stress disorder, chronic; E53.8 Deficiency of other specified B group vitamins; G40.909 Epilepsy, unspecified, not intractable, without status epilepticus; W57.XXXD Bitten or stung by nonvenomous insect and other nonvenomous arthropods, subsequent encounter; Z16.12 Extended spectrum beta lactamase (ESBL) resistance
CPT/HCPCS: 36415; 70450; 71045; 74177; 80048; 80053; 81001; 82140; 82550; 82553; 82607; 82728; 82746; 82803; 82962; 83036; 83540; 83550; 83605; 84484; 85025; 85045; 85610; 86340; 87040; 87086; 87088; 87186; 93005; 93010; 96361; 96365; 99285; G0103; J0696; J1650; J2543; J3490; J7030

== ENCOUNTER 2018-05-16 20:53 | Emergency (ER) | payer MEDICARE, MEDICAID ==
[2018-05-16 21:07] VITALS: BP 166/73
--- NOTE | 2018-05-16 22:21 | ER Document Report ---
ED Medical Screen (RME) - General Chief Complaint: Fall Injury Stated Complaint: FALL,SHOULDER PAIN Time Seen by Provider: 05/16/18 22:16 Primary Care Provider: CLAUDIA ALVES MD [Primary Care Provider] - Follow up as needed Notes: Patient is a 77-year-old male who presents the emergency department with a chief complaint of a fall. He said he was in his wheelchair around 1500 this afternoon, stood up, and lost his balance because he has a left knee replacement. He states that he is usually unsteady on the left side. Fall was unwitnessed and he has left shoulder pain and neck pain. He is unsure as to whether or not he hit his head. Per EMS, he is acting at his baseline. TRAVEL OUTSIDE OF THE [place] IN LAST 30 DAYS: No - Related Data Allergies/Adverse Reactions: No Known Allergies Allergy (Verified 01/07/18 18:14) Past Medical History - Past Medical History Cardiac Medical History: Reports: Hx Hypercholesterolemia, Hx Hypertension, Hx Heart Murmur - 2012 aortic stenosis with [id number] Denies: Hx Atrial Fibrillation, Hx Congestive Heart Failure, Hx Heart Attack Pulmonary Medical History: Reports: Hx COPD - 2008 fev1=27%. 2011 bullae Denies: Hx Asthma Neurological Medical History: Reports: Hx Seizures - until 1990 Renal/ Medical History: Denies: Hx Peritoneal Dialysis Malignancy Medical History: Reports Hx Prostate Cancer GI Medical History: Reports: Hx Gastroesophageal Reflux Disease. Denies: Hx Hiatal Hernia, Hx Ulcer Musculoskeltal Medical History: Reports Hx Arthritis Psychiatric Medical History: Reports: Hx Depression Past Surgical History: Reports: Hx Orthopedic Surgery - L Knee Replacement, Other - 1993 Prostatectomy cataracts. Denies: Hx Open Heart Surgery - Immunizations Immunizations up to date: Yes Hx Diphtheria, Pertussis, Tetanus Vaccination: Yes History of Influenza Vaccine for 12/2016 - 05/2017 Season: Unknown Physical Exam - Vital signs Vitals: Temp Pulse Resp BP Pulse Ox 97.6 F 78 16 166/73 H 100 05/16/18 21:05 05/16/18 21:05 05/16/18 21:05 05/16/18 21:05 05/16/18 21:05 - HEENT Head: Normocephalic Neck: Other - Tenderness to the left side Course - Vital Signs Vital signs: Temp Pulse Resp BP Pulse Ox 97.6 F 78 16 166/73 H 100 05/16/18 21:05 05/16/18 21:05 05/16/18 21:05 05/16/18 21:05 05/16/18 21:05 Doctor's Discharge - Discharge Referrals: CLAUDIA ALVES MD [Primary Care Provider] - Follow up as needed
--- NOTE | 2018-05-16 22:33 | RADIOLOGY REPORT (SQ) ---
EXAM DESCRIPTION: XR SHOULDER 2 OR MORE VIEWS COMPLETED DATE/TME: 05/16/2018 21:42 CLINICAL HISTORY: 77 years, Male, fall injury Findings: Bony alignment is anatomic. No fracture or dislocation. Acromioclavicular joint is intact. Mild glenohumeral degenerative changes. Soft tissues are unremarkable. IMPRESSION: No fracture. Mild degenerative changes.
--- NOTE | 2018-05-16 22:54 | RADIOLOGY REPORT (SQ) ---
EXAM DESCRIPTION: CT HEAD WITHOUT IV CONTRAST COMPLETED DATE/TME: 05/16/2018 22:21 CLINICAL HISTORY: 77 years Male, fall COMPARISON: TECHNIQUE: No contrast. Coronal and sagittal reformat. This exam was performed according to our departmental dose-optimization program, which includes automated exposure control, adjustment of the mA and/or kV according to patient size and/or use of iterative reconstruction technique. FINDINGS: No hemorrhage or infarct. No mass, mass effect, or midline shift. White matter microangiopathy and parenchymal volume loss. 1.5 cm left maxillary mucosal thickening. Brain and extra-axial structures appear otherwise intact. IMPRESSION: No acute findings.
--- NOTE | 2018-05-16 22:55 | RADIOLOGY REPORT (SQ) ---
EXAM DESCRIPTION: CT CERVICAL SPINE WITHOUT IV CONTRAST COMPLETED DATE/TME: 05/16/2018 22:22 CLINICAL HISTORY: 77 years, Male, fall This exam was performed according to our departmental dose-optimization program which includes automated exposure control, adjustment of the mA and/or kVp according to patient size and/or use of iterative reconstruction technique where applicable. FINDINGS: Vertebral body heights are intact. Moderate diffuse degenerative changes from C2 through C7. Minimal grade 1 anterolisthesis of C4 versus C3. No significant prevertebral soft tissue swelling. Facets are normally aligned. The odontoid process is intact. IMPRESSION: No fracture or subluxation. Moderate diffuse degenerative changes.
[2018-05-17 03:36] LABS: HEMATOCRIT 35.5 % (37.9-51.0); HEMOGLOBIN 11.7 g/dL (13.5-17.0); MEAN CORPUSCULAR HEMOGLOBIN 30.2 pg (27.0-33.4); MEAN CORPUSCULAR VOLUME 91 fl (80-97); PLATELET COUNT 241 10^3/uL (150-450); RED BLOOD COUNT 3.88 10^6/uL (4.35-5.55); RED CELL DISTRIBUTION WIDTH 20.3 % (11.5-14.0); WHITE BLOOD COUNT 4.5 10^3/uL (4.0-10.5)
[2018-05-17 03:51] LABS: ALANINE AMINOTRANSFERASE < 6 U/L (21-72); ALBUMIN 4.8 g/dL (3.5-5.0); ALKALINE PHOSPHATASE 47 U/L (38-126); ANION GAP 11 (5-19); ASPARTATE AMINO TRANSFERASE 24 U/L (17-59); BILIRUBIN,DIRECT 0.3 mg/dL (0.0-0.4); BILIRUBIN,TOTAL 0.7 mg/dL (0.2-1.3); BLOOD UREA NITROGEN 24 mg/dL (7-20); CARBON DIOXIDE 25 mmol/L (22-30); CHLORIDE 104 mmol/L (98-107); GLUCOSE 95 mg/dL (75-110); SODIUM 139.9 mmol/L (137-145); TOTAL PROTEIN 8.3 g/dL (6.3-8.2)
[2018-05-17 04:01] LABS: ABSOLUTE LYMPHOCYTES# (MANUAL) 1.8 10^3/uL (0.5-4.7); ABSOLUTE MONOCYTES # (MANUAL) 0.6 10^3/uL (0.1-1.4); ABSOLUTE NEUTROPHILS# (MANUAL) 1.7 10^3/uL (1.7-8.2); BAND NEUTROPHILS % (MANUAL) 1 % (3-5); BASOPHILS % (MANUAL) 1 % (0-2); EOSINOPHILS % (MANUAL) 7 % (0-6); LYMPHOCYTES % (MANUAL) 40 % (13-45); MONOCYTES % (MANUAL) 14 % (3-13); SEGMENTED NEUTROPHILS % (MAN) 37 % (42-78); TOTAL CELLS COUNTED 100
[2018-05-17 04:02] LABS: ANISOCYTOSIS 2+; PLATELET COMMENT ADEQUATE; POIKILOCYTOSIS 1+; POLYCHROMASIA 1+; STOMATOCYTES 1+
--- NOTE | 2018-05-17 05:08 | ER Document Report ---
ED General - General Chief Complaint: Fall Injury Stated Complaint: FALL,SHOULDER PAIN Time Seen by Provider: 05/16/18 22:16 Primary Care Provider: CLAUDIA ALVES MD [Primary Care Provider] - Follow up as needed Notes: Patient is a 77-year-old male who presents the emergency department with a chief complaint of a fall. He said he was in his wheelchair around 1500 this afternoon, stood up, and lost his balance because he has history of a left knee replacement. He states that he is usually unsteady on the left side. Fall was unwitnessed and he has left shoulder pain and neck pain. Patient states that he does have soreness to the left side of his neck. He does live a primary skilled nursing. He is unsure as to whether or not he hit his head. Per EMS, he is acting at his baseline. He has full range of motion to his left arm. I actually of taking care of this patient before and he is acting his baseline. He denies any fever, shortness of breath, chest pain, abdominal pain, or any other complaints. TRAVEL OUTSIDE OF THE [place] IN LAST 30 DAYS: No - Related Data Allergies/Adverse Reactions: No Known Allergies Allergy (Verified 01/07/18 18:14) Past Medical History - Social History Smoking Status: Unknown if Ever Smoked Family History: CAD, Hyperlipidemia, Hypertension Patient has suicidal ideation: No Patient has homicidal ideation: No - Past Medical History Cardiac Medical History: Reports: Hx Hypercholesterolemia, Hx Hypertension, Hx Heart Murmur - 2012 aortic stenosis with [id number] Denies: Hx Atrial Fibrillation, Hx Congestive Heart Failure, Hx Heart Attack Pulmonary Medical History: Reports: Hx COPD - 2008 fev1=27%. 2012 bullae Denies: Hx Asthma Neurological Medical History: Reports: Hx Seizures - until 1990 Renal/ Medical History: Denies: Hx Peritoneal Dialysis Malignancy Medical History: Reports Hx Prostate Cancer GI Medical History: Reports: Hx Gastroesophageal Reflux Disease. Denies: Hx Hiatal Hernia, Hx Ulcer Musculoskeletal Medical History: Reports Hx Arthritis Psychiatric Medical History: Reports: Hx Depression Past Surgical History: Reports: Hx Orthopedic Surgery - L Knee Replacement, Other - 1993 Prostatectomy cataracts. Denies: Hx Open Heart Surgery - Immunizations Immunizations up to date: Yes Hx Diphtheria, Pertussis, Tetanus Vaccination: Yes Hx Pneumococcal Vaccination: 12/18/13 Review of Systems - Review of Systems Notes: REVIEW OF SYSTEMS: CONSTITUTIONAL : Denies recent illness. Denies recent unintentional weight loss. Denies fever, chills, or sweats. EENT: Denies eye, ear, throat, or mouth pain, discharge, or symptoms. Denies nasal or sinus congestion. CARDIOVASCULAR: Denies chest pain. RESPIRATORY: Denies shortness of breath, cough, congestion, difficulty breathing, or wheezing. GASTROINTESTINAL: Denies nausea, vomiting, and diarrhea. Denies abdominal pain. Denies constipation. GENITOURINARY: Denies difficulty urinating, burning, blood in urine, urgency or frequency. MUSCULOSKELETAL: See HPI SKIN: Denies rash, itchiness, or lesions HEMATOLOGIC : Denies easy bruising or bleeding. LYMPHATIC: Denies swollen, painful, enlarged glands. NEUROLOGICAL: Denies no numbness or tingling denies weakness. Denies headache. Denies altered mental status. Denies alteration in speech. PSYCHIATRIC: Denies stress, anxiety, alteration in sleep patterns, or depression. All other systems reviewed and negative. Physical Exam - Vital signs Vitals: Temp Pulse Resp BP Pulse Ox 97.6 F 78 16 166/73 H 100 05/16/18 21:05 05/16/18 21:05 05/16/18 21:05 05/16/18 21:05 05/16/18 21:05 - Notes Notes: PHYSICAL EXAMINATION: GENERAL: Appears well, healthy, well-nourished, no acute distress. HEAD: Normocephalic, atraumatic. EYES: PERRL, conjunctiva normal, all extraocular movements intact, sclera nonicteric ENT: Moist mucous membranes. NECK: Supple, no noticeable swelling, redness, rash. Normal range of motion. LUNGS: Equal breath sounds bilaterally and clear to auscultation. No wheezes rales or rhonchi. CARDIOVASCULAR: S1-S2, regular rate, regular rhythm. Radial pulses 2+, normal. ABDOMEN: Normoactive bowel sounds. Soft, nontender, no guarding, no rebound tenderness, and no masses palpated. EXTREMITIES: Normal strength and range of motion, no pitting or edema. No cya nosis. NEUROLOGICAL: Moves all extremities upon command. Strength 5/5 in all extremities. PSYCH: Normal mood, normal affect. SKIN: Warm, dry. No rash, lesions, ulcerations noted. Normal skin turgor. Course - Re-evaluation Re-evalutation: 05/17/18 05:[address] of the head, C-spine, and x-ray of his left shoulder are all unremarkable and negative for fractures. He appears well and is stable for discharge. Verbal discharge instructions were given to the patient. They verbalized understanding. They are stable for discharge. - Vital Signs Vital signs: Temp Pulse Resp BP Pulse Ox 97.6 F 78 16 166/73 H 100 05/16/18 21:05 05/16/18 21:05 05/16/18 21:05 05/16/18 21:05 05/16/18 21:05 - Laboratory Result Diagrams: 05/17/18 03:15 05/17/18 03:15 Laboratory results interpreted by me: 05/17/18 05/17/18 03:15 03:15 RBC 3.88 L Hgb 11.7 L Hct 35.5 L RDW 20.3 H Seg Neuts % (Manual) 37 L Band Neutrophils % 1 L Monocytes % (Manual) 14 H Eosinophils % (Manual) 7 H BUN 24 H Creatinine 1.80 H Est GFR ( Amer) 44 L Est GFR (Non-Af Amer) 37 L ALT < 6 L Total Protein 8.3 H Discharge - Discharge Clinical Impression: Fall Qualifiers: Encounter type: initial encounter Qualified Code(s): W19.XXXA - Unspecified fall, initial encounter Left shoulder pain Qualifiers: Chronicity: acute Qualified Code(s): M25.512 - Pain in left shoulder Additional Instructions: You were seen today in the emergency department for a fall. Your x-ray in your CT scans are normal. Please follow-up with your primary care provider in regards to this visit. Please be careful when standing up to get out of the wheelchair. If you have worsening symptoms, or have any symptoms that are worrisome to you, please return to the emergency department. Referrals: CLAUDIA ALVES MD [Primary Care Provider] - 05/21/18
== END 2018-05-17 06:18 ==
LOC: ER 20:53
DX: M25.512 Pain in left shoulder (principal); M54.2 Cervicalgia; W18.39XA Other fall on same level, initial encounter; I10 Essential (primary) hypertension; J44.9 Chronic obstructive pulmonary disease, unspecified; Z96.652 Presence of left artificial knee joint; Z85.46 Personal history of malignant neoplasm of prostate
CPT/HCPCS: 36415; 70450; 72125; 80053; 85025; 99284

== ENCOUNTER 2018-07-25 10:44 | Emergency (ER) | payer MEDICARE, MEDICAID ==
--- NOTE | 2018-07-25 12:03 | RADIOLOGY REPORT (SQ) ---
EXAM DESCRIPTION: SHOULDER RIGHT 2 OR MORE VIEWS COMPLETED DATE/TIME: 07/25/2018 11:48 am REASON FOR STUDY: Fell at NH, R shoulder tender, C-spine tender COMPARISON: None. NUMBER OF VIEWS: Three views. TECHNIQUE: Internal rotation, external rotation, and Y view images acquired of the right shoulder. LIMITATIONS: None. FINDINGS: MINERALIZATION: Normal. BONES: No acute fracture or dislocation. No worrisome bone lesions. JOINTS: No dislocation. VISUALIZED LUNGS AND RIBS: No pneumothorax. No rib fracture. SOFT TISSUES: No radiopaque foreign body. OTHER: No other significant finding. IMPRESSION: NO ACUTE FINDINGS. TECHNICAL DOCUMENTATION: JOB ID: [id number] [employer]- All Rights Reserved Reading location - IP/workstation name: [email or web address]
--- NOTE | 2018-07-25 12:04 | RADIOLOGY REPORT (SQ) ---
EXAM DESCRIPTION: CT HEAD WITHOUT COMPLETED DATE/TIME: 07/25/2018 11:50 am REASON FOR STUDY: Fell at NH, R shoulder tender, C-spine tender COMPARISON: 05/16/2018 TECHNIQUE: Axial images acquired through the brain without intravenous contrast. Images reviewed wi th bone, brain and subdural windows. Additional sagittal and coronal reconstructions were generated. Images stored on PACS. All CT scanners at this facility use dose modulation, iterative reconstruction, and/or weight based d osing when appropriate to reduce radiation dose to as low as reasonably achievable (ALARA). [facility]: Dose Right [facility]: CareDose [facility]: Dose Right [facility]: Teradose 4D [facility]: Smart [employer] RADIATION DOSE: CT Rad equipment meets quality standard of care and radiation dose reduction techniq ues were employed. CTDIvol: 53.2 mGy. DLP: 1044 mGy-cm.mGy. LIMITATIONS: None. FINDINGS: VENTRICLES: Prominent. CEREBRUM: No masses. No hemorrhage. No midline shift. Areas of low density in the white matter mos t likely due to chronic micro-vascular ischemic change. No evidence for acute infarction. CEREBELLUM: No masses. No hemorrhage. No alteration of density. No evidence for acute infarction. EXTRAAXIAL SPACES: Age-related involutional change. No fluid collections. No masses. ORBITS AND GLOBE: No intra- or extraconal masses. Normal contour of globe without masses. CALVARIUM: No fracture. PARANASAL SINUSES: No fluid levels. SOFT TISSUES: No mass or hematoma. OTHER: No other significant finding. IMPRESSION: CHRONIC CHANGES OF ATROPHY AND MICROVASCULAR ISCHEMIA. NO ACUTE PROCESS. EVIDENCE OF ACUTE STROKE: NO. TECHNICAL DOCUMENTATION: JOB ID: [id number] Quality ID # [id number]: Final reports with documentation of one or more dose reduction techniques (e.g., Au tomated exposure control, adjustment of the mA and/or kV according to patient size, use of iterative reconstruction technique) 2010 [employer]- All Rights Reserved Reading location - IP/workstation name: [email or web address]
--- NOTE | 2018-07-25 12:05 | RADIOLOGY REPORT (SQ) ---
EXAM DESCRIPTION: CT CERVICAL SPINE WITHOUT COMPLETED DATE/TIME: 07/25/2018 11:50 am REASON FOR STUDY: Fell at NH, R shoulder tender, C-spine tender COMPARISON: 05/16/2018 TECHNIQUE: Axial images acquired through the cervical spine without intravenous contrast. Images re viewed with lung, soft tissue and bone windows. Reconstructed coronal and sagittal MPR images review ed. Images stored on PACS. All CT scanners at this facility use dose modulation, iterative reconstruction, and/or weight based d osing when appropriate to reduce radiation dose to as low as reasonably achievable (ALARA). [facility]: Dose Right [facility]: CareDose [facility]: Dose Right [facility]: Teradose 4D [facility]: [employer] RADIATION DOSE: CT Rad equipment meets quality standard of care and radiation dose reduction techniq ues were employed. CTDIvol: 20.3 mGy. DLP: 504 mGy-cm. mGy. LIMITATIONS: None. FINDINGS: ALIGNMENT: Anatomic. MINERALIZATION: Normal. VERTEBRAL BODIES: No fractures or dislocation. DISCS: Multilevel disc space narrowing with osteophytes. FACETS, LATERAL MASSES, POSTERIOR ELEMENTS: Facet arthropathy. No fractures. No dislocation. No ac johan findings. HARDWARE: None in the spine. VISUALIZED RIBS: No fractures. LUNG APICES AND SOFT TISSUES: No significant or acute findings. OTHER: No other significant finding. IMPRESSION: CHRONIC DEGENERATIVE CHANGES. NO ACUTE FINDINGS. TECHNICAL DOCUMENTATION: JOB ID: [id number] Quality ID # [id number]: Final reports with documentation of one or more dose reduction techniques (e.g., Au tomated exposure control, adjustment of the mA and/or kV according to patient size, use of iterative reconstruction technique) 2010 [employer]- All Rights Reserved Reading location - IP/workstation name: [email or web address]
--- NOTE | 2018-07-25 12:57 | ER Document Report ---
Entered by LANDY SALDANA SCRIBE 07/25/18 1123 Acting as scribe for:STEPHANIE LUU MD ED General - General Chief Complaint: Fall Stated Complaint: FALL/RIGHT SHOULDER PAIN Time Seen by Provider: 07/25/18 11:03 Primary Care Provider: CLAUDIA ALVES MD [Primary Care Provider] - Follow up as needed Mode of Arrival: Ambulatory Information source: Patient Notes: Patient is a 77 year old male with HTN, dementia a history of frequent falls presents to the emergency department from [facility] complaining of right shoulder pain and neck pain secondary a fall. According to nursing staff, the fall was unwitnessed and patient was found against a door. Patient also complains of thumb pain. No further history was obtained due to patient's mental status. TRAVEL OUTSIDE OF THE [place] IN LAST 30 DAYS: No - Related Data Allergies/Adverse Reactions: No Known Allergies Allergy (Verified 01/07/18 18:14) Past Medical History - General Information source: Patient - Social History Smoking Status: Never Smoker Cigarette use (# per day): No Chew tobacco use (# tins/day): No Smoking Education Provided: No Frequency of alcohol use: None Family History: CAD, Hyperlipidemia, Hypertension - Past Medical History Cardiac Medical History: Reports: Hx Hypercholesterolemia, Hx Hypertension, Hx Heart Murmur - 2012 aortic stenosis with [id number] Pulmonary Medical History: Reports: Hx COPD - 2008 fev1=27%. 2012 bullae Neurological Medical History: Reports: Hx Seizures - until 1990 Malignancy Medical History: Reports Hx Prostate Cancer GI Medical History: Reports: Hx Gastroesophageal Reflux Disease Musculoskeletal Medical History: Reports Hx Arthritis Psychiatric Medical History: Reports: Hx Depression Past Surgical History: Reports: Hx Orthopedic Surgery - L Knee Replacement, Other - 1993 Prostatectomy cataracts - Immunizations Immunizations up to date: Yes Hx Diphtheria, Pertussis, Tetanus Vaccination: Yes Hx Pneumococcal Vaccination: 12/18/13 Review of Systems - Review of Systems Constitutional: No symptoms reported EENT: No symptoms reported Cardiovascular: No symptoms reported Respiratory: No symptoms reported Gastrointestinal: No symptoms reported Genitourinary: No symptoms reported Male Genitourinary: No symptoms reported Musculoskeletal: See HPI Skin: No symptoms reported Hematologic/Lymphatic: No symptoms reported Neurological/Psychological: No symptoms reported -: Yes All other systems reviewed and negative Physical Exam - Vital signs Vitals: Temp Pulse Resp BP Pulse Ox 97.9 F 79 18 144/64 H 99 07/25/18 10:52 07/25/18 10:52 07/25/18 10:52 07/25/18 10:52 07/25/18 10:52 - Notes Notes: GENERAL: Alert, interacts well. No acute distress. HEAD: Normocephalic, atraumatic. EYES: Pupils equal, round, and reactive to light. Extraocular movements intact. ENT: Oral mucosa moist, tongue midline. NECK: Initally in a c-collar. Tender to palpate the cervical spinous processes, particularly C4. Full range of motion. Supple. Trachea midline. LUNGS: Clear to auscultation bilaterally, no wheezes, rales, or rhonchi. No respiratory distress. HEART: Regular rate and rhythm. No murmurs, gallops, or rubs. ABDOMEN: Soft, non-tender. Non-distended. Bowel sounds present in all 4 quadrants. No guarding, rigidity, or rebound. EXTREMITIES: Moves all 4 extremities spontaneously. Tender to palpate the right shoulder, no obvious deformities or swelling. Patient frequently moves his thumbs. No edema, radial and dorsalis pedis pulses 2/4 bilaterally. No cyanosis. PSYCH: Demented at baseline. SKIN: Warm, dry, normal turgor. No rashes or lesions noted. Course - Re-evaluation Re-evalutation: 07/25/18 12:34 The patient was found sitting on the floor leaning against the door. This was unwitnessed. It was assumed that he fell. No particular injury can be found. He does have tenderness over the mid posterior neck spinous processes, he has tenderness over the right shoulder. He has fallen on the right shoulder in the past and been seen here for the same problem. CT scans and x-rays do not show acute problems. There were no other injuries detected on the physical exam. - Vital Signs Vital signs: Temp Pulse Resp BP Pulse Ox 97.9 F 79 18 144/64 H 99 07/25/18 10:52 07/25/18 10:52 07/25/18 10:52 07/25/18 10:52 07/25/18 10:52 - Diagnostic Test Radiology reviewed: Image reviewed, Reports reviewed - Right shoulder x-ray does not show acute abnormality. CT scan of the head shows chronic microvascular ischemic atrophy changes. CT scan of the neck shows chronic degenerative changes. Discharge - Discharge Clinical Impression: Cervical spine pain Fall Qualifiers: Encounter type: initial encounter Qualified Code(s): W19.XXXA - Unspecified fall, initial encounter Right shoulder pain Qualifiers: Chronicity: unspecified Qualified Code(s): M25.511 - Pain in right shoulder Condition: Stable Disposition: SNF-Other Additional Instructions: No specific injuries were detected on physical exam and radiological exam today. Follow-up with your primary care provider if any further problems. RETURN TO THE EMERGENCY ROOM IF ANY NEW OR WORSENING SYMPTOMS. Referrals: CLAUDIA ALVES MD [Primary Care Provider] - Follow up as needed Scribe Attestation: 07/25/18 12:36 I personally performed the services described in the documentation, reviewed and edited the documentation which was dictated to the scribe in my presence, and it accurately records my words and actions. I personally performed the services described in the documentation, reviewed and edited the documentation which was dictated to the scribe in my presence, and it accurately records my words and actions.
[2018-07-25 13:11] VITALS: BP 163/72
== END 2018-07-25 13:32 ==
LOC: ER 10:44
DX: M54.2 Cervicalgia (principal); M25.511 Pain in right shoulder; M79.644 Pain in right finger(s); W19.XXXA Unspecified fall, initial encounter; Y92.129 Unspecified place in nursing home as the place of occurrence of the external cause; I10 Essential (primary) hypertension; J44.9 Chronic obstructive pulmonary disease, unspecified
CPT/HCPCS: 70450; 72125; 99285

== ENCOUNTER → 2018-10-10 | Outpatient (CLI) | payer MEDICAID, MEDICARE ==
--- NOTE | 2018-10-10 11:54 | RADIOLOGY REPORT (SQ) ---
EXAM DESCRIPTION: U/S ABDOMEN COMPLETE W/O DOP COMPLETED DATE/TIME: 10/10/2018 11:22 am REASON FOR STUDY: K29.90 GASTRODUODENITIS, UNSPECIFIED, WITHOUT BLEEDING K29.90 GASTRODUODENITIS, U NSPECIFIED, WITHOUT BLEEDING K27.9 PEPTIC ULC, SITE UNSP, UNSP AC OR CHR, W/O HEMOR OR COMPARISON: 11/29/2010 TECHNIQUE: Dynamic and static grayscale images acquired of the abdomen and recorded on PACS. Additio nal selected color Doppler and spectral images recorded. Note: Study does not meet criteria for complete doppler/duplex scan LIMITATIONS: None. FINDINGS: PANCREAS: Partially visualized. No masses. LIVER: No masses. Echotexture normal. LIVER VASCULATURE: Normal directional flow of the main portal vein and hepatic veins. GALLBLADDER: Cholelithiasis. No pericholecystic fluid or wall thickening. ULTRASOUND-DETECTED WALSH'S SIGN: Negative. INTRAHEPATIC DUCTS AND COMMON DUCT: CBD and intrahepatic ducts normal caliber. No filling defects. INFERIOR VENA CAVA: Normal flow. AORTA: No aneurysm. RIGHT KIDNEY: Normal size measuring 8.4 cm. There are scattered cysts, largest measuring up to 2.6 cm. Normal echogenicity. No suspicious masses. No hydronephrosis. No calcifications. LEFT KIDNEY: Normal in size measuring 8.5 cm. Normal echogenicity. Cystic area adjacent to the l eft kidney measuring up to 3.6 cm, likely at exophytic cyst and stable from prior. No hydronephrosi s. No calcifications. SPLEEN: Normal in size measuring 7.9 cm. PERITONEAL AND PLEURAL SPACES: No ascites or effusions. OTHER: No other significant finding. IMPRESSION: 1. Cholelithiasis without secondary evidence of acute cholecystitis. 2. Bilateral renal cysts, largest measuring 3.6 cm on the left. TECHNICAL DOCUMENTATION: JOB ID: [id number] [employer]- All Rights Reserved Reading location - IP/workstation name: [email or web address]
== END ==
LOC: RAD 09:20
PROVIDERS: ATTEND Family Medicine
DX: K80.20 Calculus of gallbladder without cholecystitis without obstruction (principal); N28.1 Cyst of kidney, acquired
CPT/HCPCS: 76700

== ENCOUNTER 2018-11-13 14:17 | Emergency (ER) | payer MEDICARE ==
--- NOTE | 2018-11-13 14:59 | ER Document Report ---
ED Fall - General Chief Complaint: Fall Stated Complaint: FALL Time Seen by Provider: 11/13/18 14:47 Primary Care Provider: CLAUDIA ALVES MD [Primary Care Provider] - Follow up as needed Notes: 78-year-old male with Alzheimer's who is a resident of [facility] presents to the emergency department after a fall. Patient tripped over a pair of shoes. Patient is a fairly reliable historian and did arrive in a c-collar by EMS. Patient states that he fell but does not remember anything at all after, when I asked him if he lost consciousness he was unable to verify that. Denies any acute limb weakness or paralysis, denies any vision changes, denies any headache, denies any nausea or vomiting. Patient is not on anticoagulation. TRAVEL OUTSIDE OF THE [place] IN LAST 30 DAYS: No - Related data Allergies/Adverse Reactions: No Known Allergies Allergy (Verified 01/07/18 18:14) Past Medical History - Social History Smoking Status: Unknown if Ever Smoked Frequency of alcohol use: None Drug Abuse: None Family History: CAD, Hyperlipidemia, Hypertension Patient has suicidal ideation: No Patient has homicidal ideation: No - Past Medical History Cardiac Medical History: Reports: Hx Hypercholesterolemia, Hx Hypertension, Hx Heart Murmur - 2012 aortic stenosis with [id number] Denies: Hx Atrial Fibrillation, Hx Congestive Heart Failure, Hx Heart Attack Pulmonary Medical History: Reports: Hx COPD - 2008 fev1=27%. 2012 bullae Denies: Hx Asthma Neurological Medical History: Reports: Hx Seizures - until 1990 Renal/ Medical History: Reports: Hx Renal Insufficiency. Denies: Hx Peritoneal Dialysis Malignancy Medical History: Reports Hx Prostate Cancer GI Medical History: Reports: Hx Gastroesophageal Reflux Disease. Denies: Hx Hiatal Hernia, Hx Ulcer Musculoskeletal Medical History: Reports Hx Arthritis Psychiatric Medical History: Reports: Hx Depression Past Surgical History: Reports: Hx Orthopedic Surgery - L Knee Replacement, Other - 1993 Prostatectomy cataracts. Denies: Hx Open Heart Surgery - Immunizations Immunizations up to date: Yes Hx Diphtheria, Pertussis, Tetanus Vaccination: Yes Hx Pneumococcal Vaccination: 12/18/13 Review of Systems - Review of Systems Constitutional: No symptoms reported EENT: See HPI Cardiovascular: No symptoms reported Respiratory: No symptoms reported Gastrointestinal: See HPI Genitourinary: No symptoms reported Male Genitourinary: No symptoms reported Musculoskeletal: No symptoms reported Skin: No symptoms reported Hematologic/Lymphatic: No symptoms reported Neurological/Psychological: See HPI Physical Exam - Notes Notes: PHYSICAL EXAMINATION: Reviewed vital signs and charting by RN GENERAL: Alert, interacts well. No acute distress. HEAD: Normocephalic, atraumatic. EYES: Pupils equal and round. Extraocular movements intact. ENT: Oral mucosa moist, tongue midline. NECK: Full range of motion. Trachea midline. LUNGS: Clear to auscultation bilaterally, no wheezes, rales, or rhonchi. No respiratory distress. HEART: Regular rate and rhythm. No murmur ABDOMEN: soft, non-tender. No distention. Bowel sounds present EXTREMITIES: Moves all 4 extremities spontaneously. No edema, No cyanosis. NEURO: normal speech, PERRL, EOMI, SILT, follows commands in all 4 extremities, no gross abnormalities of cranial nerves, no focal neuro deficits, no pronator drift, [id number] testing normal, marketing/sales person strength 5/5 bilateral, 5/5 strength in both proximal and distal upper and lower extremities PSYCH: Normal affect, normal mood. SKIN: Warm, dry, normal turgor. No rashes or lesions noted. Course - Re-evaluation Re-evalutation: 11/13/18 14:59 Overall well-appearing and patient arrived in c-collar. Patient does have Alzheimer's and I will not be able to clinically clear his C-spine so I will go ahead and move forward with a CT head and cervical without. 11/13/18 15:52 CT head negative for any intracranial bleed or midline shift or mass-effect, CT neck without did not show any evidence of C-spine fracture dislocation. At this time patient is well-appearing and he is stable for discharge back to his facility. 11/13/18 15:53 Presentation of a well appearing elderly patient in no acute distress, vitals within normal limits after a mechanical fall. Patient demented at baseline. No focal neurologic deficits on exam, no evidence of basilar skull fracture on exam without evidence of hemotympanum, raccoon eyes, or periauricular hematoma. Patient is not on anticoagulation. No loss of consciousness. No episodes of vomiting. However, based on patient's age a CT of the head has been obtained wh ich is negative for any acute intracranial bleed. Likewise, patient was unable to be clinically cleared due to age by [place] cervical spine criteria. A CT of the cervical spine was also obtained and likewise is negative for any acute fracture. No indication for further imaging of the cervical spine. Patient has no focal deformities or limited range of motion in any joint space. Chest and abdominal exam are benign without any focal tenderness, shortness of breath, or bruising over the chest or abdominal wall. Patient has no flank tenderness. There is no obvious findings on trauma exam today and therefore no further imaging or evaluation will be obtained at this time. At this time will discharge with return precautions and follow-up recommendations. Verbal discharge instructions given a the bedside and opportunity for questions given. Medication warnings reviewed. Patient is in agreement with this plan and has verbalized understanding of return precautions and the need for primary care follow-up in the next 24-72 hours. Discharge - Discharge Clinical Impression: Fall Qualifiers: Encounter type: initial encounter Qualified Code(s): W19.XXXA - Unspecified fall, initial encounter Condition: Good Disposition: HOME, SELF-CARE Additional Instructions: You have been seen in the Emergency Department (ED) today following a fall. Your workup today did not reveal any injuries that require you to stay in the hospital. You can expect, though, to be stiff and sore for the next several days. You can take Tylenol 1000 mg every 6 hours as needed for pain. You can apply a hot pack or electric heating pad to the sore areas. You can also use topical "Aspercreme with lidocaine" to sore areas as needed. Please follow up with your primary care doctor as soon as possible regarding today's ED visit and your recent fall. Call your doctor or return to the ED if you develop a sudden or severe headache, confusion, slurred speech, facial droop, weakness or numbness in any arm or leg, extreme fatigue, vomiting more than two times, severe abdominal pain, or other symptoms that concern you. Referrals: CLAUDIA ALVES MD [Primary Care Provider] - Follow up as needed
--- NOTE | 2018-11-13 15:23 | RADIOLOGY REPORT (SQ) ---
EXAM DESCRIPTION: CT CERVICAL SPINE WITHOUT COMPLETED DATE/TIME: 11/13/2018 3:13 pm REASON FOR STUDY: fall COMPARISON: 10/31/2018 TECHNIQUE: Axial images acquired through the cervical spine without intravenous contrast. Images re viewed with lung, soft tissue and bone windows. Reconstructed coronal and sagittal MPR images review ed. Images stored on PACS. All CT scanners at this facility use dose modulation, iterative reconstruction, and/or weight based d osing when appropriate to reduce radiation dose to as low as reasonably achievable (ALARA). [facility]: Dose Right [facility]: CareDose [facility]: Dose Right [facility]: Teradose 4D [facility]: [employer] RADIATION DOSE: CT Rad equipment meets quality standard of care and radiation dose reduction techniq ues were employed. CTDIvol: 16.4 mGy. DLP: 351 mGy-cm. mGy. LIMITATIONS: None. FINDINGS: ALIGNMENT: Anatomic. MINERALIZATION: Normal. VERTEBRAL BODIES: No fractures or dislocation. DISCS: Moderate to severe multilevel disc degenerative disease and anterior osteophytosis. FACETS, LATERAL MASSES, POSTERIOR ELEMENTS: No fractures. No dislocation. No acute findings. HARDWARE: None in the spine. VISUALIZED RIBS: No fractures. LUNG APICES AND SOFT TISSUES: No significant or acute findings. OTHER: No other significant finding. IMPRESSION: No fracture or static subluxation of the cervical spine. TECHNICAL DOCUMENTATION: JOB ID: [id number] Quality ID # [id number]: Final reports with documentation of one or more dose reduction techniques (e.g., Au tomated exposure control, adjustment of the mA and/or kV according to patient size, use of iterative reconstruction technique) 2010 [employer]- All Rights Reserved Reading location - IP/workstation name: [email or web address]
--- NOTE | 2018-11-13 15:26 | RADIOLOGY REPORT (SQ) ---
EXAM DESCRIPTION: CT HEAD WITHOUT COMPLETED DATE/TIME: 11/13/2018 3:13 pm REASON FOR STUDY: fall COMPARISON: 10/31/2018 TECHNIQUE: Axial images acquired through the brain without intravenous contrast. Images reviewed wi th bone, brain and subdural windows. Additional sagittal and coronal reconstructions were generated. Images stored on PACS. All CT scanners at this facility use dose modulation, iterative reconstruction, and/or weight based d osing when appropriate to reduce radiation dose to as low as reasonably achievable (ALARA). [facility]: Dose Right [facility]: CareDose [facility]: Dose Right [facility]: Teradose 4D [facility]: Smart [email or web address] RADIATION DOSE: CT Rad equipment meets quality standard of care and radiation dose reduction techniq ues were employed. CTDIvol: 53.2 mGy. DLP: 964 mGy-cm. mGy. LIMITATIONS: None. FINDINGS: VENTRICLES: Normal size and contour. CEREBRUM: No masses. No hemorrhage. No midline shift. No evidence for acute infarction. Extensive areas of low density in the white matter most likely chronic small vessel ischemic changes. CEREBELLUM: No masses. No hemorrhage. No alteration of density. No evidence for acute infarction. EXTRAAXIAL SPACES: No fluid collections. No masses. ORBITS AND GLOBE: No intra- or extraconal masses. Normal contour of globe without masses. CALVARIUM: No fracture. PARANASAL SINUSES: No fluid or mucosal thickening. SOFT TISSUES: No mass or hematoma. OTHER: No other significant finding. IMPRESSION: No acute intracranial pathology. Small vessel white matter disease. EVIDENCE OF ACUTE STROKE: NO. COMMENT: Quality ID # [id number]: Final reports with documentation of one or more dose reduction techniques (e.g., Automated exposure control, adjustment of the mA and/or kV according to patient size, use of iterative reconstruction technique) TECHNICAL DOCUMENTATION: JOB ID: [id number] [employer]- All Rights Reserved Reading location - IP/workstation name: [email or web address]
[2018-11-13 17:15] VITALS: BP 166/63
== END 2018-11-13 17:37 | disposition home or self-care (01) ==
LOC: ER 14:17
DX: Z04.3 Encounter for examination and observation following other accident (principal); G30.9 Alzheimer's disease, unspecified; F02.80 Dementia in other diseases classified elsewhere, unspecified severity, without behavioral disturbance, psychotic disturbance, mood disturbance, and anxiety; I10 Essential (primary) hypertension; J44.9 Chronic obstructive pulmonary disease, unspecified; Z85.46 Personal history of malignant neoplasm of prostate
CPT/HCPCS: 70450; 72125; 99284

== ENCOUNTER 2020-01-03 18:57 | Emergency (ER) | payer MEDICARE, OTHER, MEDICAID ==
[2020-01-03] MEDS ORDERED: DIPH/PERTUSS(ACELL)/TETANUS VAC/PF 0.5 ML SYR (>=10YO) IM ONE (19:40)
--- NOTE | 2020-01-03 19:51 | ER Document Report ---
ED Head/Face/Scalp Injury - General Chief Complaint: Head Injury Stated Complaint: FALL Time Seen by Provider: 01/03/20 19:30 Primary Care Provider: DINO CASTRO MD [Primary Care Provider] - Follow up as needed Notes: 79 year old japanese speaking male is here after fall from wheelchair a short time prior to his arrival here. His history is limited by japanese speaking and dementia. Per reports this was a mechanical fall and there was no loc. No fever or chills and no chest pain or sob. TRAVEL OUTSIDE OF THE [place] IN LAST 30 DAYS: No - Related Data Allergies/Adverse Reactions: No Known Allergies Allergy (Verified 01/07/18 18:14) Past Medical History - Social History Smoking Status: Former Smoker Chew tobacco use (# tins/day): No Frequency of alcohol use: None Drug Abuse: None Family History: CAD, Hyperlipidemia, Hypertension - Past Medical History Cardiac Medical History: Reports: Hx Hypercholesterolemia, Hx Hypertension, Hx Heart Murmur - 2012 aortic stenosis with [id number] Denies: Hx Atrial Fibrillation, Hx Congestive Heart Failure, Hx Heart Attack Pulmonary Medical History: Reports: Hx COPD - 2008 fev1=27%. 2012 bullae Denies: Hx Asthma Neurological Medical History: Reports: Hx Seizures - until 1990 Renal/ Medical History: Reports: Hx Renal Insufficiency. Denies: Hx Peritoneal Dialysis Malignancy Medical History: Reports Hx Prostate Cancer GI Medical History: Reports: Hx Gastroesophageal Reflux Disease. Denies: Hx Hiatal Hernia, Hx Ulcer Musculoskeletal Medical History: Reports Hx Arthritis Psychiatric Medical History: Reports: Hx Depression Past Surgical History: Reports: Hx Orthopedic Surgery - L Knee Replacement, Other - 1993 Prostatectomy cataracts. Denies: Hx Open Heart Surgery - Immunizations Immunizations up to date: Yes Hx Diphtheria, Pertussis, Tetanus Vaccination: Yes Hx Pneumococcal Vaccination: 12/18/13 Review of Systems - Review of Systems Constitutional: No symptoms reported EENT: No symptoms reported Cardiovascular: No symptoms reported Respiratory: No symptoms reported Gastrointestinal: No symptoms reported Genitourinary: No symptoms reported Male Genitourinary: No symptoms reported Musculoskeletal: No symptoms reported Skin: No symptoms reported Hematologic/Lymphatic: No symptoms reported Neurological/Psychological: No symptoms reported Physical Exam - Vital signs Vitals: Temp Pulse Resp BP Pulse Ox 97.8 F 93 16 164/67 H 98 01/03/20 19:08 01/03/20 19:08 01/03/20 19:08 01/03/20 19:08 01/03/20 19:08 Interpretation: Normal - General General appearance: Appears well, Alert - HEENT Head: Normocephalic, Other - right scalp partietal laceration with bleeding controlled.. No: Atraumatic Eyes: Normal Pupils: PERRL - Respiratory Respiratory status: No respiratory distress Chest status: Nontender Breath sounds: Normal Chest palpation: Normal - Cardiovascular Rhythm: Regular Heart sounds: Normal auscultation Murmur: No - Abdominal Inspection: Normal Distension: No distension Bowel sounds: Normal Tenderness: Nontender Organomegaly: No organomegaly - Back Back: Normal, Nontender - Extremities General upper extremity: Normal inspection, Nontender, Normal color, Normal ROM, Normal temperature General lower extremity: Normal inspection, Nontender, Normal color, Normal ROM, Normal temperature, Normal weight bearing. No: Vamsi's sign - Neurological Neuro grossly intact: Yes Cognition: Normal Orientation: AAOx4 [place] Coma Scale Eye Opening: Spontaneous Uriel Coma Scale Verbal: Oriented [place] Coma Scale Motor: Obeys Commands [place] Coma Scale Total: 15 Speech: Normal Motor strength normal: LUE, RUE, LLE, RLE Sensory: Normal - Psychological Associated symptoms: Normal affect, Normal mood - Skin Skin Temperature: Warm Skin Moisture: Dry Skin Color: Normal Course - Re-evaluation Re-evalutation: 01/03/20 22:19 MDM As pt is frail and demented and likely with weak bridging cranial blood vessels a decision was made to obtain imaging of his brain looking for ICH or SAH or SDH primarily. Thankfully, the ct showed no evidence of bleeding actively inside his skull. - Vital Signs Vital signs: Temp Pulse Resp BP Pulse Ox 97.8 F 93 16 164/67 H 98 01/03/20 19:08 01/03/20 19:08 01/03/20 19:08 01/03/20 19:08 01/03/20 19:08 - Diagnostic Test Radiology reviewed: Image reviewed, Reports reviewed Procedures - Laceration/Wound Repair Right Head Wound length (cm): 2 Wound's Depth, Shape: Superficial Anesthetic type: Other - ET Volume Anesthetic (mLs): 5 Wound explored: Clean Wound Repaired With: Zeb - 2 zeb placed and pt tolerated well without apparent complications. Discharge - Discharge Clinical Impression: Fall Qualifiers: Encounter type: initial encounter Qualified Code(s): W19.XXXA - Unspecified fall, initial encounter Scalp laceration Qualifiers: Encounter type: initial encounter Qualified Code(s): S01.01XA - Laceration without foreign body of scalp, initial encounter Contusion Qualifiers: Encounter type: initial encounter Contusion area: head Contusion of head detail: scalp Qualified Code(s): S00.03XA - Contusion of scalp, initial encounter Condition: Stable Disposition: HOME, SELF-CARE Instructions: Laceration Care ([facility]), Soap Cleansing ([facility]), Tetanus Immunization Given ([facility]), Contusion ([facility]) Additional Instructions: Wash with soap and water - clean and dry for 24 hours and then clean. Watchung out 01/12. Tylenol for pain and use ice to scalp as needed. Please return here for weakness, persistent vomiting (more than once) chest p ain, shortness of breath or other problems or concerns including but not limited to change in level of consciousness. Referrals: DINO CASTRO MD [Primary Care Provider] - Follow up as needed
--- NOTE | 2020-01-03 21:41 | RADIOLOGY REPORT (SQ) ---
EXAM DESCRIPTION: CT brain without contrast. January 03, 2020 at 9:30 PM CLINICAL HISTORY: fall/ dementia/ head injury COMPARISON: None Available. TECHNIQUE: Contiguous axial images of the brain were obtained without the administration of intravenous contrast.This exam was performed according to our departmental dose-optimization program, which includes automated exposure control, adjustment of the mA and/or kV according to patient size and/or use of iterative reconstruction technique. FINDINGS: There is no acute intracranial hemorrhage or mass effect. Areas of low attenuation in the periventricular and subcortical white matter are nonspecific but suggestive of small vessel disease. There is generalized atrophy. Ventricular system is within normal limits. There is adequate caraballo-white matter differentiation. There is no skull fracture. The visualized paranasal sinuses and mastoid air cells are within normal limits. There is atherosclerosis. Filling defects within the external ear canals, left greater than right, may represent cerumen. Direct visualization recommended. IMPRESSION: No acute intracranial abnormalities. Filling defects within the external ear canals, left greater than right, may represent cerumen. Direct visualization recommended.
[2020-01-03] MEDS ORDERED: LIDOCAINE 4%/TETRACAINE 0.5%/EPI 0.18% 5 ML TOPICAL SOLN TOP ONE (22:18)
[2020-01-03] MEDS ORDERED: ACETAMINOPHEN 325 MG TABLET PO ONE (23:12)
[2020-01-04 03:07] VITALS: BP 155/70
== END 2020-01-04 03:57 | disposition home or self-care (01) ==
LOC: ER 18:57
DX: S01.01XA Laceration without foreign body of scalp, initial encounter (principal); F03.90 Unspecified dementia, unspecified severity, without behavioral disturbance, psychotic disturbance, mood disturbance, and anxiety; W05.0XXA Fall from non-moving wheelchair, initial encounter; E78.00 Pure hypercholesterolemia, unspecified; I10 Essential (primary) hypertension; J44.9 Chronic obstructive pulmonary disease, unspecified; Z96.652 Presence of left artificial knee joint
CPT/HCPCS: 99285; 96372; 70450; 90715; 12001; A9270; J3490